=== PATIENT | female | born 1940 | race Caucasian/White ===

== ENCOUNTER 2016-10-28 17:41 | Inpatient (IN) | payer MEDICARE, MEDICAID ==
[~2016-10-28] VITALS: Ht 144.8 cm; Wt 73.0 kg
[~2016-10-28 17:41] MED LIST: CYAN1TAB19 PO; METO25TA9 PO; MULT1TAB90 PO
[2016-10-28 18:51] LABS: BASO # 0.1 x10^3/uL (0.0-0.2); BASO % 1 % (0-3); EOS % 1 % (0-3); HEMOGLOBIN 13.1 g/dL (12.0-15.5); LYMPH # 1.4 x10^3/uL (1.0-4.8); LYMPH % 16 % (24-48); MEAN CORPUSCULAR HEMOGLOBIN 28 pg (25-35); MEAN CORPUSCULAR HGB CONC 33 g/dL (31-37); MEAN CORPUSCULAR VOLUME 86 fL (79-100); MONO % 8 % (0-9); NEUT % 74 % (31-73); PLATELET COUNT 187 x10^3/uL (140-400); RED BLOOD COUNT 4.63 x10^6/uL (3.50-5.40); RED CELL DISTRIBUTION WIDTH 13.8 % (11.5-14.5); WHITE BLOOD COUNT 8.5 x10^3/uL (4.0-11.0)
[2016-10-28 18:53] LABS: BILIRUBIN,URINE NEGATIVE (NEG); GLUCOSE,URINE NEGATIVE (NEG); NITRITE,URINE NEGATIVE (NEG); PROTEIN,URINE 100 mg/dL (NEG-TRACE); UROBILINOGEN,URINE 0.2 mg/dL (0.2 mg/dL)
[2016-10-28] MEDS ORDERED: IV NORMAL SALINE 500ML BAG 500 ML IV ONE ×2 (19:00→20:45)
[2016-10-28] MEDS ORDERED: FENTANYL PF 100 MCG/2 ML VIAL. IV ONE (19:00)
[2016-10-28 19:01] LABS: CALCIUM 9.1 mg/dL (8.5-10.1); CREATININE 7.6 mg/dL (0.6-1.0); GFR 5.2; POTASSIUM 4.4 mmol/L (3.5-5.1)
[2016-10-28 19:06] LABS: BACTERIA,URINE MODERATE /HPF (0-FEW); SQUAMOUS EPITHELIAL CELL,UR FEW /LPF; WBC,URINE TNTC /HPF (0-4)
[2016-10-28] MEDS ORDERED: CEFTRIAXONE 1GM IVPB FOR OMNI 50 ML IV ONE (20:30)
--- NOTE | 2016-10-28 20:30 | RAD ---
PROCEDURE CT scan of the abdomen and pelvis without contrast 10/28/2016 HISTORY Severe bilateral flank pain. TECHNIQUE Unenhanced contiguous, 2 millimeter axial sections were obtained through the abdomen and pelvis. One or more of the following individualized dose reduction techniques were utilized for this study: 1. Automated exposure control. 2. Adjustment of the mA and/or kV according to patient size. 3. Use of iterative reconstruction technique. FINDINGS Comparison study is dated 05/22/2013. Images through the lung bases demonstrate mild cardiomegaly. Dependent subsegmental atelectasis is seen involving both lungs. Areas of scarring and/or atelectasis are seen involving right middle lobe. Low attenuation lesions are seen involving left lobe of the liver consistent with hepatic cysts. These measure 6 millimeters to 1.4 centimeters in size. Calcified granulomas are seen scattered throughout the liver and spleen. The spleen is mildly enlarged measuring 15.7 centimeters in greatest diameter. The pancreas and adrenal glands are within normal limits. Atrophy of the left kidney is again seen. Several nonobstructing calculi are seen scattered throughout both kidneys, right greater than left. These measure 3 millimeters to 9 millimeters in size. Low attenuation lesions are seen involving both kidneys consistent most likely with cysts. These measure 1 centimeters to 3.3 centimeters in size. A 1.1 centimeter calculus is seen in the right UPJ. This appears to be causing mild obstruction of the right collecting system. There is no evidence of obstruction of the left collecting system. The abdominal aorta tapers normally. Surgical clips are seen within the gallbladder fossa consistent with a cholecystectomy. No free fluid or free air is seen within the abdomen. There is no evidence of bowel obstruction. Images through the pelvis demonstrate the urinary bladder distended with urine. Calcifications are seen within the pelvis consistent with phleboliths. No adnexal mass is seen. Mild S-shaped curvature of the thoracolumbar spine is seen. Degenerative changes are seen involving lower thoracic and throughout the lumbar spine and both hips. IMPRESSION 1.1 centimeter right UPJ calculus is seen which is causing mild obstruction of the right collecting system. Electronically signed by: Jesus Hunter MD (Oct 28, 2016 20:28:55)
--- NOTE | 2016-10-28 21:08 | PHYS DOC ---
Past Medical History Past Medical History: Hypertension, Kidney Infection, Kidney Stone, UTI Past Surgical History: Appendectomy, Cholecystectomy, Tonsillectomy, Other Additional Past Surgical Histo: kidney stents, intestinal bypass Alcohol Use: None Drug Use: None Adult General Chief Complaint Chief Complaint: FLANK PAIN HPI HPI This 76-year-old female who's had ongoing flank tenderness that she localizes primarily to the right flank region for the last week. Patient was seen by Dr. Maravilla in the occiput on antibiotic for likely pyelonephritis but she states her symptoms have continued. She had laboratory workup by Dr. Maravilla that showed acute renal failure and she was sent here for evaluation. Upon my evaluation patient is still complaining of significant right flank tenderness. She denies any fever or chills. She denies any dysuria or hematuria that she does state that she has history of renal renal stones that have required multiple stents in the past. As his most recently 2 years ago. Review of Systems Review of Systems Constitutional: Denies fever or chills [] Eyes: Denies change in visual acuity, redness, or eye pain [] HENT: Denies nasal congestion or sore throat [] Respiratory: Denies cough or shortness of breath [] Cardiovascular: No additional information not addressed in HPI [] GI: Denies abdominal pain, nausea, vomiting, bloody stools or diarrhea [] : Denies dysuria or hematuria [] Musculoskeletal: Denies back pain or joint pain [] Integument: Denies rash or skin lesions [] Neurologic: Denies headache, focal weakness or sensory changes [] Endocrine: Denies polyuria or polydipsia [] Current Medications Current Medications Current Medications Medications (Trade) Dose Ordered Sig/Kvng Start Time Stop Time Status Last Admin Dose Admin Fentanyl Citrate 50 mcg 50 mcg 1X ONCE 10/28/16 19:00 10/28/16 19:05 DC 10/28/16 19:18 50 MCG Sodium Chloride (Iv Sodium Chloride 0.9% 500ml Bag) 500 ml @ 500 mls/hr 1X ONCE 10/28/16 19:00 10/28/16 19:59 DC 10/28/16 19:00 500 MLS/HR Allergies Allergies Allergies Coded Allergies Type Severity Reaction Last Updated Verified hydrocodone Allergy Intermediate HALLUCINATIONS 10/28/16 Yes Physical Exam Physical Exam Constitutional: Well developed, well nourished, no acute distress, non-toxic appearance. [] HENT: Normocephalic, atraumatic, bilateral external ears normal, oropharynx moist, no oral exudates, nose normal. [] Eyes: PERRLA, EOMI, conjunctiva normal, no discharge. [] Neck: Normal range of motion, no tenderness, supple, no stridor. [] Cardiovascular:Heart rate regular rhythm, no murmur [] Lungs & Thorax: Bilateral breath sounds clear to auscultation [] Abdomen: Bowel sounds normal, soft, no tenderness, no masses, no pulsatile masses. [] Skin: Warm, dry, no erythema, no rash. [] Back: No tenderness, right CVA tenderness. [] Extremities: No tenderness, no cyanosis, no clubbing, ROM intact, no edema. [] Neurologic: Alert and oriented X 3, normal motor function, normal sensory function, no focal deficits noted. [] Psychologic: Affect normal, judgement normal, mood normal. [] Current Patient Data Vital Signs Vital Signs Date Time Temp Pulse Resp B/P Pulse Ox O2 Delivery O2 Flow Rate FiO2 10/28/16 20:09 80 18 144/64 97 Room Air 10/28/16 17:59 97.9 97.9 Lab Values Laboratory Tests Test 10/28/16 18:09 White Blood Count 8.5x10^3/uL (4.0-11.0) Red Blood Count 4.63x10^6/uL (3.50-5.40) Hemoglobin 13.1g/dL (12.0-15.5) Hematocrit 40.0% (36.0-47.0) Mean Corpuscular Volume 86fL (79-100) Mean Corpuscular Hemoglobin 28pg (25-35) Mean Corpuscular Hemoglobin Concent 33g/dL (31-37) Red Cell Distribution Width 13.8% (11.5-14.5) Platelet Count 187x10^3/uL (140-400) Neutrophils (%) (Auto) 74% (31-73) H Lymphocytes (%) (Auto) 16% (24-48) L Monocytes (%) (Auto) 8% (0-9) Eosinophils (%) (Auto) 1% (0-3) Basophils (%) (Auto) 1% (0-3) Neutrophils # (Auto) 6.3x10^3uL (1.8-7.7) Lymphocytes # (Auto) 1.4x10^3/uL (1.0-4.8) Monocytes # (Auto) 0.7x10^3/uL (0.0-1.1) Eosinophils # (Auto) 0.1x10^3/uL (0.0-0.7) Basophils # (Auto) 0.1x10^3/uL (0.0-0.2) Urine Collection Type Unknown Urine Color Yellow Urine Clarity Clear Urine pH 6.0 Urine Specific [place] 1.010 Urine Protein 100mg/dL (NEG-TRACE) Urine Glucose (UA) Negativemg/dL (NEG) Urine Ketones (Stick) Negativemg/dL (NEG) Urine Blood Small (NEG) Urine Nitrite Negative (NEG) Urine Bilirubin Negative (NEG) Urine Urobilinogen Dipstick 0.2mg/dL (0.2 mg/dL) Urine Leukocyte Esterase Large (NEG) Urine RBC 6-10/HPF (0-2) Urine WBC Tntc/HPF (0-4) Urine Squamous Epithelial Cells Few/LPF Urine Transitional Epithelial Cells Few/LPF Urine Bacteria Moderate/HPF (0-FEW) Sodium Level 140mmol/L (136-145) Potassium Level 4.4mmol/L (3.5-5.1) Chloride Level 109mmol/L (98-107) H Carbon Dioxide Level 13mmol/L (21-32) L Anion Gap 18 (6-14) H Blood Urea Nitrogen 89mg/dL (7-20) H Creatinine 7.6mg/dL (0.6-1.0) H Estimated GFR (Cockcroft-Gault) 5.2 Glucose Level 119mg/dL (70-99) H Calcium Level 9.1mg/dL (8.5-10.1) Laboratory Tests 10/28/16 18:09 Laboratory Tests 10/28/16 18:09 EKG EKG [] Radiology/Procedures Radiology/Procedures FINDINGS Comparison study is dated 05/22/2013. Images through the lung bases demonstrate mild cardiomegaly. Dependent subsegmental atelectasis is seen involving both lungs. Areas of scarring and/or atelectasis are seen involving right middle lobe. Low attenuation lesions are seen involving left lobe of the liver consistent with hepatic cysts. These measure 6 millimeters to 1.4 centimeters in size. Calcified granulomas are seen scattered throughout the liver and spleen. The spleen is mildly enlarged measuring 15.7 centimeters in greatest diameter. The pancreas and adrenal glands are within normal limits. Atrophy of the left kidney is again seen. Several nonobstructing calculi are seen scattered throughout both kidneys, right greater than left. These measure 3 millimeters to 9 millimeters in size. Low attenuation lesions are seen involving both kidneys consistent most likely with cysts. These measure 1 centimeters to 3.3 centimeters in size. A 1.1 centimeter calculus is seen in the right UPJ. This appears to be causing mild obstruction of the right collecting system. There is no evidence of obstruction of the left collecting system. The abdominal aorta tapers normally. Surgical clips are seen within the gallbladder fossa consistent with a cholecystectomy. No free fluid or free air is seen within the abdomen. There is no evidence of bowel obstruction. Images through the pelvis demonstrate the urinary bladder distended with urine. Calcifications are seen within the pelvis consistent with phleboliths. No adnexal mass is seen. Mild S-shaped curvature of the thoracolumbar spine is seen. Degenerative changes are seen involving lower thoracic and throughout the lumbar spine and both hips. IMPRESSION 1.1 centimeter right UPJ calculus is seen which is causing mild obstruction of the right collecting system. Course & Med Decision Making Course & Med Decision Making Pertinent Labs and Imaging studies reviewed. (See chart for details) 76-year-old female who's having significant flank tenderness and has a CT of her abdomen and pelvis that demonstrates a 1.1 cm calculus at the UPJ. Her lab work also indicates acute renal failure. I discussed the case with the urologist , Dr. Oconnor, who said to keep the patient on a clear liquid diet and to be nothing by mouth in the morning as he will likely put a ureteral stent. I discussed the case with the hospitalist, Dr. Maravilla who agreed with the plan to admit with urology consult as well as renal consult. I gave a dose of IV Rocephin and fluids as well as PRN pain medication. She was admitted without incident. Dragon Disclaimer Dragon Disclaimer This electronic medical record was generated, in whole or in part, using a voice recognition dictation system. Departure Departure Impression: Primary Impression: UTI (urinary tract infection) Additional Impressions: Stone, kidney Flank pain Disposition: 09 ADMITTED INPATIENT Admitting Physician: Other Condition: STABLE Referrals: IFEANYI MARAVILLA MD (PCP) Problem Qualifiers EUGENIO DONOHUE DO Oct 28, 2016 21:08
--- NOTE | 2016-10-28 21:27 | ACF ---
Admission Forms Criteria URINARY COMPLICATIONS Clinical Indications for Inpatient Care (Place 'X' for any and all applicable criteria): Ongoing inpatient care may be indicated for urinary complications with ANY ONE of the following: [X]I. Urinary tract infection requiring inpatient care as indicated by ANY ONE of the following(8)(19)(20): [ ]a) Severe symptoms (eg, high fever, severe pain) [ ]b) Vomiting or dehydration requiring ongoing inpatient care [X]c) IV antibiotic needs that cannot be managed at lower level of care [ ]d) Hemodynamic instability [ ]e) Obstruction of collecting system by stone or tumor [ ]II. Urinary retention requiring drainage or surgery (3)(4)(5)(17)(18) [ ]III. Renal failure (Use Renal Failure Criteria for further information.) [ ]IV. Oliguria(30) [ ]V. Post obstructive diuresis requiring close monitoring of urine output and intravenous compensation for excessive fluid losses(33) Extended stay beyond goal length of stay for primary condition may be needed until ALL of the following are present(3)(4)(5)(8): [ ]a) Renal function (creatinine) at baseline, or daily decreases in creatinine consistent with renal function return [ ]b) Voiding adequately or with urinary catheter or percutaneous suprapubic tube and management regimen in place that is performable at lower level of care. [ ]c) Urine output adequate [ ]d) Fever absent or resolving [ ]e) Infection absent or treatable at next level of care The original [employer] content created by [employer] has been revised. The portions of the content which have been revised are identified through the use of italic text or in bold, and [facility] has neither reviewed nor approved the modified material. All other unmodified content is copyright [employer] Please see references footnoted in the original [facility] edition 2016 Admission Criteria Met?: Yes SUMMER PERKINS Oct 28, 2016 21:27
[2016-10-28 22:00] VITALS: BP 184/75
[2016-10-28] MEDS: IV NORMAL SALINE 1000ML BAG 1,000 ML IV SCH (22:00)
[2016-10-28 23:50] VITALS: BP 151/63
[2016-10-29 03:20] VITALS: BP 141/65
[2016-10-29] MEDS: ONDANSETRON PF 4 MG/2 ML VIAL. IV PRN ×2 (04:32→13:21)
[2016-10-29] MEDS: FENTANYL PF 100 MCG/2 ML VIAL. IV PRN ×2 (04:33→13:07)
[2016-10-29 07:00] VITALS: BP 137/45
[2016-10-29 07:04] LABS: BASO % 1 % (0-3); EOS % 1 % (0-3); HEMATOCRIT 33.6 % (36.0-47.0); LYMPH % 17 % (24-48); MEAN CORPUSCULAR HEMOGLOBIN 28 pg (25-35); MEAN CORPUSCULAR HGB CONC 33 g/dL (31-37); MEAN CORPUSCULAR VOLUME 87 fL (79-100); MONO % 11 % (0-9); NEUT % 70 % (31-73); PLATELET COUNT 135 x10^3/uL (140-400); RED BLOOD COUNT 3.86 x10^6/uL (3.50-5.40); RED CELL DISTRIBUTION WIDTH 14.4 % (11.5-14.5); WHITE BLOOD COUNT 5.8 x10^3/uL (4.0-11.0)
[2016-10-29] MEDS: IV NORMAL SALINE 1000ML BAG 1,000 ML IV SCH ×2 (07:15→17:15)
[2016-10-29 07:18] LABS: CALCIUM 8.3 mg/dL (8.5-10.1); CREATININE 6.9 mg/dL (0.6-1.0); GFR 5.8; POTASSIUM 4.6 mmol/L (3.5-5.1)
[2016-10-29] MEDS ORDERED: DEXTROSE 5% IV SCH (07:45)
[2016-10-29] MEDS ORDERED: SODIUM BICARBONATE IV SCH (07:45)
[2016-10-29] MEDS: SODIUM BICARBONATE VIAL 100 MEQ in IV DEXTROSE 5% 1,000 ML IV SCH ×2 (08:29→21:28)
--- NOTE | 2016-10-29 08:41 | PDOC ---
Provider Note Provider Note UROLOGY: c/c right ureteral calculus, flank pain, ARF chart reviewed, patient examined Plan: Will try to get patient on schedule for Cysto right stent placement. Ellis, KUSH HECK DO Oct 29, 2016 08:41
--- NOTE | 2016-10-29 09:06 | PDOC1 ---
History and Physical Date of Admission Date of Admission DATE: 10/28/16 Identification/Chief Complaint Chief Complaint Told to come to ER Source Source: Patient History of Present Illness History of Present Illness Pt recently established care with myself complaining of dysuria and needing to be treated for UTI. Initial baseline labs showed severely decreased kidney function and pt was called and told to go to the hospital. She initially was not going to come, but her son made her. She has significant history of kidney stones requiring stents being placed in the past, and at one time having surgery to remove stones. She has not been feeling well over this past week with fevers, chills and nausea. Past Medical History Cardiovascular: No pertinent hx Pulmonary: No pertinent hx GI: No pertinent hx Heme/Onc: No pertinent hx Hepatobiliary: No pertinent hx Psych: No pertinent hx Rheumatologic: No pertinent hx Infectious disease: No pertinent hx ENT: No pertinent hx Renal/: UTI, Other (Kidney Stones) Endocrine: No pertinent hx Dermatology: No pertinent hx Past Surgical History Past Surgical History: Appendectomy, Cholecystectomy, Tonsillectomy, Other ( ureter stents, Kidney surgery, Gastric Bypass) Family History Family History: Cancer (Mom- Breast Cancer), Hypertension, Other (Kidney Stones ) Social History Smoke: No ALCOHOL: none Drugs: None Current Problem List Problem List Problems Medical Problems: (1) Flank pain Status: Acute (2) Stone, kidney Status: Acute (3) UTI (urinary tract infection) Status: Acute Problems: Current Medications Current Medications Current Medications Fentanyl Citrate 50 mcg 50 mcg 1X ONCE IV Last administered on 10/28/16 19:18 ; Start 10/28/16 at 19:00; Stop 10/28/16 at 19:05; Status DC Sodium Chloride 500 ml @ 500 mls/hr 1X ONCE IV Last administered on 10/28/16 19:00; Start 10/28/16 at 19:00; Stop 10/28/16 at 19:59; Status DC Ceftriaxone Sodium 50 ml @ 100 mls/hr 1X ONCE IV Last administered on 21:21; Start 10/28/16 at 20:30; Stop 10/28/16 at 20:59; Status DC Sodium Chloride (Iv Sodium Chloride 0.9% 500ml Bag) 500 ml @ 500 mls/hr 1X ONCE IV Last administered on 10/28/16 21:22; Start 10/28/16 at 20:45; Stop at 21:44; Status DC Ondansetron HCl 4 mg 4 mg PRN Q8HRS PRN IV NAUSEA/VOMITING Last administered on 10/29/16 04:32; Start 10/28/16 at 21:00; Stop 10/29/16 at 20:59 Sodium Chloride (Iv Sodium Chloride 0.9% 1000ml Bag) 1,000 ml @ 100 mls/hr Q10H IV Last administered on 10/28/16 22:00; Start 10/28/16 at 21:15; Stop at 21:14 Fentanyl Citrate 50 mcg 50 mcg PRN Q2HR PRN IV SEVERE PAIN Last administered on 10/29/16 04:33; Start 10/28/16 at 21:45 Sodium Bicarbonate 2 meq/ Dextrose 1,002 ml @ 100 mls/hr Q10H2M IV ; Start 10/29 at 07:45; Stop 10/29/16 at 07:45; Status DC Sodium Bicarbonate/ Dextrose 1,100 ml @ 100 mls/hr Q11H IV Last administered on 10/29/16 08:29; Start 10/29/16 at 09:00 Active Scripts Active Reported No Known Medications Prior To Admisstion (Info) Each 1 Each Allergies Allergies: Coded Allergies: hydrocodone (Verified Allergy, Intermediate, HALLUCINATIONS, 10/28/16) ROS General: YES: Appetite, Chills, Fatigue PSYCHOLOGICAL ROS: No: Anxiety, Depression Eyes: No Decreased vision, No Eye Pain HEENT: No: Nasal congestion, Sore Throat ALLERGY AND IMMUNOLOGY: No: Hives, Post Nasal Drip Hematological and Lymphatic: No: Bleeding Problems, Blood Clots Respiratory: No: Cough, Shortness of breath Cardiovascular: No Chest Pain, No Edema, No Palpitations Gastrointestinal: Yes Abdominal Pain, Yes Nausea, No Constipation, No Diarrhea, No Vomiting Genitourinary: No Dysuria, No Urgency Musculoskeletal: No Joint Pain, No Muscle Pain Neurological: No Impaired Coord/balance, No Numbness/Tingling Skin: No Rash, No Skin Lesion Changes Physical Exam General: Alert, Oriented X3, Cooperative HEENT: Atraumatic, PERRLA Lungs: Clear to auscultation, Normal air movement Heart: RRR, no rubs, no gallops, no murmurs Abdomen: Normal bowel sounds, Soft, Other (TTP lower abdomen) Extremities: No clubbing, No cyanosis Skin: No rashes, No breakdown, No significant lesion Neuro: Normal tone, Sensation intact, Cranial nerves 3-12 NL Psych/Mental Status: Mental status NL, Mood NL Vitals Vitals Vital Signs Date Time Temp Pulse Resp B/P Pulse Ox O2 Delivery O2 Flow Rate FiO2 10/29/16 07:00 98.2 71 18 137/45 99 Room Air 98.2 Labs Labs Laboratory Tests Test 10/28/16 18:09 10/28/16 20:55 10/29/16 06:30 10/29/16 06:50 White Blood Count 8.5x10^3/uL (4.0-11.0) 5.8x10^3/uL (4.0-11.0) Red Blood Count 4.63x10^6/uL (3.50-5.40) 3.86x10^6/uL (3.50-5.40) Hemoglobin 13.1g/dL (12.0-15.5) 11.0g/dL (12.0-15.5) Hematocrit 40.0% (36.0-47.0) 33.6% (36.0-47.0) Mean Corpuscular Volume 86fL (79-100) 87fL (79-100) Mean Corpuscular Hemoglobin 28pg (25-35) 28pg (25-35) Mean Corpuscular Hemoglobin Concent 33g/dL (31-37) 33g/dL (31-37) Red Cell Distribution Width 13.8% (11.5-14.5) 14.4% (11.5-14.5) Platelet Count 187x10^3/uL (140-400) 135x10^3/uL (140-400) Neutrophils (%) (Auto) 74% (31-73) 70% (31-73) Lymphocytes (%) (Auto) 16% (24-48) 17% (24-48) Monocytes (%) (Auto) 8% (0-9) 11% (0-9) Eosinophils (%) (Auto) 1% (0-3) 1% (0-3) Basophils (%) (Auto) 1% (0-3) 1% (0-3) Neutrophils # (Auto) 6.3x10^3uL (1.8-7.7) 4.1x10^3uL (1.8-7.7) Lymphocytes # (Auto) 1.4x10^3/uL (1.0-4.8) 1.0x10^3/uL (1.0-4.8) Monocytes # (Auto) 0.7x10^3/uL (0.0-1.1) 0.6x10^3/uL (0.0-1.1) Eosinophils # (Auto) 0.1x10^3/uL (0.0-0.7) 0.1x10^3/uL (0.0-0.7) Basophils # (Auto) 0.1x10^3/uL (0.0-0.2) 0.0x10^3/uL (0.0-0.2) Urine Collection Type Unknown Urine Color Yellow Urine Clarity Clear Urine pH 6.0 Urine Specific [place] 1.010 Urine Protein 100mg/dL (NEG-TRACE) Urine Glucose (UA) Negativemg/dL (NEG) Urine Ketones (Stick) Negativemg/dL (NEG) Urine Blood Small (NEG) Urine Nitrite Negative (NEG) Urine Bilirubin Negative (NEG) Urine Urobilinogen Dipstick 0.2mg/dL (0.2 mg/dL) Urine Leukocyte Esterase Large (NEG) Urine RBC 6-10/HPF (0-2) Urine WBC Tntc/HPF (0-4) Urine Squamous Epithelial Cells Few/LPF Urine Transitional Epithelial Cells Few/LPF Urine Bacteria Moderate/HPF (0-FEW) Sodium Level 140mmol/L (136-145) 144mmol/L (136-145) Potassium Level 4.4mmol/L (3.5-5.1) 4.6mmol/L (3.5-5.1) Chloride Level 109mmol/L (98-107) 117mmol/L (98-107) Carbon Dioxide Level 13mmol/L (21-32) 11mmol/L (21-32) Anion Gap 18 (6-14) 16 (6-14) Blood Urea Nitrogen 89mg/dL (7-20) 84mg/dL (7-20) Creatinine 7.6mg/dL (0.6-1.0) 6.9mg/dL (0.6-1.0) Estimated GFR (Cockcroft-Gault) 5.2 5.8 Glucose Level 119mg/dL (70-99) 113mg/dL (70-99) Calcium Level 9.1mg/dL (8.5-10.1) 8.3mg/dL (8.5-10.1) Lactic Acid Level 0.5mmol/L (0.4-2.0) Laboratory Tests Test 10/28/16 18:09 10/28/16 20:55 10/29/16 06:30 10/29/16 06:50 White Blood Count 8.5x10^3/uL (4.0-11.0) 5.8x10^3/uL (4.0-11.0) Red Blood Count 4.63x10^6/uL (3.50-5.40) 3.86x10^6/uL (3.50-5.40) Hemoglobin 13.1g/dL (12.0-15.5) 11.0g/dL (12.0-15.5) Hematocrit 40.0% (36.0-47.0) 33.6% (36.0-47.0) Mean Corpuscular Volume 86fL (79-100) 87fL (79-100) Mean Corpuscular Hemoglobin 28pg (25-35) 28pg (25-35) Mean Corpuscular Hemoglobin Concent 33g/dL (31-37) 33g/dL (31-37) Red Cell Distribution Width 13.8% (11.5-14.5) 14.4% (11.5-14.5) Platelet Count 187x10^3/uL (140-400) 135x10^3/uL (140-400) Neutrophils (%) (Auto) 74% (31-73) 70% (31-73) Lymphocytes (%) (Auto) 16% (24-48) 17% (24-48) Monocytes (%) (Auto) 8% (0-9) 11% (0-9) Eosinophils (%) (Auto) 1% (0-3) 1% (0-3) Basophils (%) (Auto) 1% (0-3) 1% (0-3) Neutrophils # (Auto) 6.3x10^3uL (1.8-7.7) 4.1x10^3uL (1.8-7.7) Lymphocytes # (Auto) 1.4x10^3/uL (1.0-4.8) 1.0x10^3/uL (1.0-4.8) Monocytes # (Auto) 0.7x10^3/uL (0.0-1.1) 0.6x10^3/uL (0.0-1.1) Eosinophils # (Auto) 0.1x10^3/uL (0.0-0.7) 0.1x10^3/uL (0.0-0.7) Basophils # (Auto) 0.1x10^3/uL (0.0-0.2) 0.0x10^3/uL (0.0-0.2) Urine Collection Type Unknown Urine Color Yellow Urine Clarity Clear Urine pH 6.0 Urine Specific [place] 1.010 Urine Protein 100mg/dL (NEG-TRACE) Urine Glucose (UA) Negativemg/dL (NEG) Urine Ketones (Stick) Negativemg/dL (NEG) Urine Blood Small (NEG) Urine Nitrite Negative (NEG) Urine Bilirubin Negative (NEG) Urine Urobilinogen Dipstick 0.2mg/dL (0.2 mg/dL) Urine Leukocyte Esterase Large (NEG) Urine RBC 6-10/HPF (0-2) Urine WBC Tntc/HPF (0-4) Urine Squamous Epithelial Cells Few/LPF Urine Transitional Epithelial Cells Few/LPF Urine Bacteria Moderate/HPF (0-FEW) Sodium Level 140mmol/L (136-145) 144mmol/L (136-145) Potassium Level 4.4mmol/L (3.5-5.1) 4.6mmol/L (3.5-5.1) Chloride Level 109mmol/L (98-107) 117mmol/L (98-107) Carbon Dioxide Level 13mmol/L (21-32) 11mmol/L (21-32) Anion Gap 18 (6-14) 16 (6-14) Blood Urea Nitrogen 89mg/dL (7-20) 84mg/dL (7-20) Creatinine 7.6mg/dL (0.6-1.0) 6.9mg/dL (0.6-1.0) Estimated GFR (Cockcroft-Gault) 5.2 5.8 Glucose Level 119mg/dL (70-99) 113mg/dL (70-99) Calcium Level 9.1mg/dL (8.5-10.1) 8.3mg/dL (8.5-10.1) Lactic Acid Level 0.5mmol/L (0.4-2.0) VTE Prophylaxis Ordered VTE Prophylaxis Devices: Yes VTE Pharmacological Prophylaxi: No Assessment/Plan Assessment/Plan Pt is a 76yoCF admitted for acute renal failure related to kidney stone 1)Acute renal failure- Renal consulted and pt on NaHCO3 gtt. Likely 2/2 obstruction 2)Kidney stone- urology consulted 3)UTI- treating 4)Anemia- partly dilutional. No active bleeding 5)Thrombocytopenia- likely partly dilutional. CTM 6)Metabolic acidosis- 2/2 renal failure IFEANYI MARAVILLA MD Oct 29, 2016 09:06
--- NOTE | 2016-10-29 11:26 | PDOC2 ---
CONSULT Date of Consult Date of Consult DATE: 10/29/16 TIME: 11:19 Reason for Consult Reason for Consult: DHAVAL Referring Physician Referring Physician: Dr Nguyen Source Source: Chart review, Patient History of Present Illness Reason for Visit: as dictated Current Problem List Problem List Problems Medical Problems: (1) Flank pain Status: Acute (2) Stone, kidney Status: Acute (3) UTI (urinary tract infection) Status: Acute Current Medications Current Medications Current Medications Fentanyl Citrate 50 mcg 50 mcg 1X ONCE IV Last administered on 10/28/16 19:18 ; Start 10/28/16 at 19:00; Stop 10/28/16 at 19:05; Status DC Sodium Chloride 500 ml @ 500 mls/hr 1X ONCE IV Last administered on 10/28/16 19:00; Start 10/28/16 at 19:00; Stop 10/28/16 at 19:59; Status DC Ceftriaxone Sodium 50 ml @ 100 mls/hr 1X ONCE IV Last administered on 21:21; Start 10/28/16 at 20:30; Stop 10/28/16 at 20:59; Status DC Sodium Chloride (Iv Sodium Chloride 0.9% 500ml Bag) 500 ml @ 500 mls/hr 1X ONCE IV Last administered on 10/28/16 21:22; Start 10/28/16 at 20:45; Stop at 21:44; Status DC Ondansetron HCl 4 mg 4 mg PRN Q8HRS PRN IV NAUSEA/VOMITING Last administered on 10/29/16 04:32; Start 10/28/16 at 21:00; Stop 10/29/16 at 20:59 Sodium Chloride (Iv Sodium Chloride 0.9% 1000ml Bag) 1,000 ml @ 100 mls/hr Q10H IV Last administered on 10/28/16 22:00; Start 10/28/16 at 21:15; Stop at 21:14 Fentanyl Citrate 50 mcg 50 mcg PRN Q2HR PRN IV SEVERE PAIN Last administered on 10/29/16 04:33; Start 10/28/16 at 21:45 Sodium Bicarbonate 2 meq/ Dextrose 1,002 ml @ 100 mls/hr Q10H2M IV ; Start 10/29 at 07:45; Stop 10/29/16 at 07:45; Status DC Sodium Bicarbonate 100 meq/Dextrose 1,100 ml @ 100 mls/hr Q11H IV Last administered on 10/29/16 08:29; Start 10/29/16 at 09:00 Levofloxacin/ Dextrose (LEVAQUIN 250mg PREMIX) 50 ml @ 50 mls/hr 1X ONCE IV Last administered on 10/29/16 10:00; Start 10/29/16 at 10:00; Stop 10/29/16 at 10: 59; Status DC Active Scripts Active Reported No Known Medications Prior To Admisstion (Info) Each 1 Each Allergies Allergies: Coded Allergies: hydrocodone (Verified Allergy, Intermediate, HALLUCINATIONS, 10/28/16) ROS Review of System GEN: subj Fevers + Chills + Weakness Fatigue EYES: no new Visual Complaints ENT: no EN Drainage no Hearing deficiets CVS: no Orthopnea no CP RESP: no SOB no MALDONADO GI: min Nausea no Vomiting Ch diarrhea : no Dysuria no Urgency HEME: no easy bruising no Palp Ly Nodes NEURO no Focal Weakness no Sz PSYCH: no Suicidal Ideation no Depression SKIN: no Rashes ENDO: no Polyuria or Polydipsia no Hot/Cold Intolerance MU SK: no Arthraigia no Myalgia Physical Exam Physical Exam General Appearance: Awake Alert Oriented x 3 In min Distress Eyes: VIsion Unchanged Conjunctiva Normal EN: No EN Drainage Mucous Memb. dry Neck: no JVD no JVP Supple no Thyromegaly CVS: S1 S2 no Murmur No Gallop No Rub no Edema Resp: no Rales no Rhonchi no Acc. Muscle use GI: BS hypoactive NO Bruit + RLQ Tender Non Distended : + Rt CVA tenderness; min Suprapubic Tenderness SKIN: no Rashes Breast Exam deferred Mu.Sk: Adequate ROM no Muscle Atrophy Heme: Unable to palpate Obvious LAD no palp Splenomegaly NEURO: Good Strength and Tone Cranial Nerves II - XII grossly intact Psych: ? Depressed no Active hallucination Vital Signs Vital Signs Date Time Temp Pulse Resp B/P Pulse Ox O2 Delivery O2 Flow Rate FiO2 10/29/16 08:30 Room Air 10/29/16 07:00 98.2 71 18 137/45 99 98.2 Assessment & Plan Sev Met Acidosis WAG + NAG - suspect due to Renal failure, ch diarrhea and IV NS. 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 Reval after UROlogical intervention? Current FLuid and E-lyte status does not necessitate emergent need for Dialysis. Will re-evaluate for Dialysis in am CKD (basline NA in our system) given Atrophy of the left kidney as seen on CT and presumably Non-fucntional Kidney stones suspect due to intestinal Bypass yareli if felt to have oxalate stones. may need stone analysis when passes/ removed; check PTH Anemia: check iron, Epogen not ordered for hgb > 10; Transfuse as needed for hgb < 7 HTN: Current BP meds reviewed. See orders for changes. Discussed Plan of Care and prognosis etc. at length with family. Labs Labs Laboratory Tests Test 10/28/16 18:09 10/28/16 20:55 10/29/16 06:30 10/29/16 06:50 White Blood Count 8.5x10^3/uL (4.0-11.0) 5.8x10^3/uL (4.0-11.0) Red Blood Count 4.63x10^6/uL (3.50-5.40) 3.86x10^6/uL (3.50-5.40) Hemoglobin 13.1g/dL (12.0-15.5) 11.0g/dL (12.0-15.5) Hematocrit 40.0% (36.0-47.0) 33.6% (36.0-47.0) Mean Corpuscular Volume 86fL (79-100) 87fL (79-100) Mean Corpuscular Hemoglobin 28pg (25-35) 28pg (25-35) Mean Corpuscular Hemoglobin Concent 33g/dL (31-37) 33g/dL (31-37) Red Cell Distribution Width 13.8% (11.5-14.5) 14.4% (11.5-14.5) Platelet Count 187x10^3/uL (140-400) 135x10^3/uL (140-400) Neutrophils (%) (Auto) 74% (31-73) 70% (31-73) Lymphocytes (%) (Auto) 16% (24-48) 17% (24-48) Monocytes (%) (Auto) 8% (0-9) 11% (0-9) Eosinophils (%) (Auto) 1% (0-3) 1% (0-3) Basophils (%) (Auto) 1% (0-3) 1% (0-3) Neutrophils # (Auto) 6.3x10^3uL (1.8-7.7) 4.1x10^3uL (1.8-7.7) Lymphocytes # (Auto) 1.4x10^3/uL (1.0-4.8) 1.0x10^3/uL (1.0-4.8) Monocytes # (Auto) 0.7x10^3/uL (0.0-1.1) 0.6x10^3/uL (0.0-1.1) Eosinophils # (Auto) 0.1x10^3/uL (0.0-0.7) 0.1x10^3/uL (0.0-0.7) Basophils # (Auto) 0.1x10^3/uL (0.0-0.2) 0.0x10^3/uL (0.0-0.2) Urine Collection Type Unknown Urine Color Yellow Urine Clarity Clear Urine pH 6.0 Urine Specific [place] 1.010 Urine Protein 100mg/dL (NEG-TRACE) Urine Glucose (UA) Negativemg/dL (NEG) Urine Ketones (Stick) Negativemg/dL (NEG) Urine Blood Small (NEG) Urine Nitrite Negative (NEG) Urine Bilirubin Negative (NEG) Urine Urobilinogen Dipstick 0.2mg/dL (0.2 mg/dL) Urine Leukocyte Esterase Large (NEG) Urine RBC 6-10/HPF (0-2) Urine WBC Tntc/HPF (0-4) Urine Squamous Epithelial Cells Few/LPF Urine Transitional Epithelial Cells Few/LPF Urine Bacteria Moderate/HPF (0-FEW) Sodium Level 140mmol/L (136-145) 144mmol/L (136-145) Potassium Level 4.4mmol/L (3.5-5.1) 4.6mmol/L (3.5-5.1) Chloride Level 109mmol/L (98-107) 117mmol/L (98-107) Carbon Dioxide Level 13mmol/L (21-32) 11mmol/L (21-32) Anion Gap 18 (6-14) 16 (6-14) Blood Urea Nitrogen 89mg/dL (7-20) 84mg/dL (7-20) Creatinine 7.6mg/dL (0.6-1.0) 6.9mg/dL (0.6-1.0) Estimated GFR (Cockcroft-Gault) 5.2 5.8 Glucose Level 119mg/dL (70-99) 113mg/dL (70-99) Calcium Level 9.1mg/dL (8.5-10.1) 8.3mg/dL (8.5-10.1) Lactic Acid Level 0.5mmol/L (0.4-2.0) Laboratory Tests Test 10/28/16 18:09 10/28/16 20:55 10/29/16 06:30 10/29/16 06:50 White Blood Count 8.5x10^3/uL (4.0-11.0) 5.8x10^3/uL (4.0-11.0) Red Blood Count 4.63x10^6/uL (3.50-5.40) 3.86x10^6/uL (3.50-5.40) Hemoglobin 13.1g/dL (12.0-15.5) 11.0g/dL (12.0-15.5) Hematocrit 40.0% (36.0-47.0) 33.6% (36.0-47.0) Mean Corpuscular Volume 86fL (79-100) 87fL (79-100) Mean Corpuscular Hemoglobin 28pg (25-35) 28pg (25-35) Mean Corpuscular Hemoglobin Concent 33g/dL (31-37) 33g/dL (31-37) Red Cell Distribution Width 13.8% (11.5-14.5) 14.4% (11.5-14.5) Platelet Count 187x10^3/uL (140-400) 135x10^3/uL (140-400) Neutrophils (%) (Auto) 74% (31-73) 70% (31-73) Lymphocytes (%) (Auto) 16% (24-48) 17% (24-48) Monocytes (%) (Auto) 8% (0-9) 11% (0-9) Eosinophils (%) (Auto) 1% (0-3) 1% (0-3) Basophils (%) (Auto) 1% (0-3) 1% (0-3) Neutrophils # (Auto) 6.3x10^3uL (1.8-7.7) 4.1x10^3uL (1.8-7.7) Lymphocytes # (Auto) 1.4x10^3/uL (1.0-4.8) 1.0x10^3/uL (1.0-4.8) Monocytes # (Auto) 0.7x10^3/uL (0.0-1.1) 0.6x10^3/uL (0.0-1.1) Eosinophils # (Auto) 0.1x10^3/uL (0.0-0.7) 0.1x10^3/uL (0.0-0.7) Basophils # (Auto) 0.1x10^3/uL (0.0-0.2) 0.0x10^3/uL (0.0-0.2) Urine Collection Type Unknown Urine Color Yellow Urine Clarity Clear Urine pH 6.0 Urine Specific [place] 1.010 Urine Protein 100mg/dL (NEG-TRACE) Urine Glucose (UA) Negativemg/dL (NEG) Urine Ketones (Stick) Negativemg/dL (NEG) Urine Blood Small (NEG) Urine Nitrite Negative (NEG) Urine Bilirubin Negative (NEG) Urine Urobilinogen Dipstick 0.2mg/dL (0.2 mg/dL) Urine Leukocyte Esterase Large (NEG) Urine RBC 6-10/HPF (0-2) Urine WBC Tntc/HPF (0-4) Urine Squamous Epithelial Cells Few/LPF Urine Transitional Epithelial Cells Few/LPF Urine Bacteria Moderate/HPF (0-FEW) Sodium Level 140mmol/L (136-145) 144mmol/L (136-145) Potassium Level 4.4mmol/L (3.5-5.1) 4.6mmol/L (3.5-5.1) Chloride Level 109mmol/L (98-107) 117mmol/L (98-107) Carbon Dioxide Level 13mmol/L (21-32) 11mmol/L (21-32) Anion Gap 18 (6-14) 16 (6-14) Blood Urea Nitrogen 89mg/dL (7-20) 84mg/dL (7-20) Creatinine 7.6mg/dL (0.6-1.0) 6.9mg/dL (0.6-1.0) Estimated GFR (Cockcroft-Gault) 5.2 5.8 Glucose Level 119mg/dL (70-99) 113mg/dL (70-99) Calcium Level 9.1mg/dL (8.5-10.1) 8.3mg/dL (8.5-10.1) Lactic Acid Level 0.5mmol/L (0.4-2.0) Images Images Atrophy of the left kidney is again seen. Several nonobstructing calculi are seen scattered throughout both kidneys, right greater than left. These measure 3 millimeters to 9 millimeters in size. Low attenuation lesions are seen involving both kidneys consistent most likely with cysts. These measure 1 centimeters to 3.3 centimeters in size. A 1.1 centimeter calculus is seen in the right UPJ. This appears to be causing mild obstruction of the right collecting system. There is no evidence of obstruction of the left collecting system. GINA DIETRICH MD Oct 29, 2016 11:25
[2016-10-29] MEDS ORDERED: MAGNESIUM SULFATE 2GM 50 ML IV PRN (11:30)
[2016-10-29] MEDS ORDERED: IOHEXOL 300 MG/ML 50 ML VIAL. ONE (13:20)
[2016-10-29] MEDS ORDERED: IV RINGERS,LACTATED 1000ML 1,000 ML IV SCH (13:35)
[2016-10-29] MEDS ORDERED: MORPHINE SULFATE 2 MG/ML DISP.SYRIN. IV PRN ×2 (13:45)
[2016-10-29] MEDS ORDERED: FENTANYL PF 100 MCG/2 ML VIAL. IV PRN ×2 (13:45)
[2016-10-29] MEDS ORDERED: ONDANSETRON PF 4 MG/2 ML VIAL. IV PRN (14:00)
[2016-10-29] MEDS ORDERED: PROPOFOL 20 ML IV ONE (14:11)
[2016-10-29] MEDS ORDERED: LIDOCAINE 2% 100 MG/5 ML DISP.SYRIN. ONE (14:11)
[2016-10-29] MEDS ORDERED: FENTANYL PF 100 MCG/2 ML VIAL. ONE (14:11)
[2016-10-29 15:00] VITALS: BP 146/57
[2016-10-29] MEDS ORDERED: MORPHINE SULFATE 4 MG/ML DISP.SYRIN. IV PRN (15:15)
--- NOTE | 2016-10-29 15:16 | EKG ---
[facility] [address] [place] [address] Test Date: 2016-10-29 Test Time: 15:04:30 Pat Name: NELIDA SEARS Department: Room: 538 1 Gender: F Bass Fisher: GUILHERME : 1940 Requested By: JOSE STORM Order Number: [id number] Reading MD: Dylon Wilkins Measurements Intervals [place] Rate: 82 P: 47 IA: 190 QRS: -38 QRSD: 92 T: 12 QT: 364 QTc: 428 Interpretive Statements SINUS RHYTHM ABNORMAL LEFT AXIS DEVIATION LEFT ANTERIOR FASCICULAR BLOCK NONSPECIFIC ST-T WAVE CHANGES. CONSIDER ANTEROSEPTAL AND INFERIOR MYOCARDIAL DAMAGE ABNORMAL ECG RI6.01 Compared to ECG 10/21/2015 13:30:42 Poor R-wave progression no longer present Electronically Signed On 10-31-2016 16:02:49 CDT by Dylon Wilkins
[2016-10-29] MEDS ORDERED: NITROGLYCERIN SUBLINGUAL 0.4 MG BOTTLE OF 25. SL ONE (15:35)
[2016-10-29] MEDS: NITROGLYCERIN SUBLINGUAL 0.4 MG BOTTLE OF 25. SL PRN ×2 (15:36→15:53)
--- NOTE | 2016-10-29 16:26 | PDOC2 ---
CARDIAC CONSULT DATE OF CONSULT Date of Consult DATE: 10/29/16 TIME: 16:26 REASON FOR CONSULT Reason for Consult: chest pain REFERRING PHYSICIAN Referring Physician: Dr. Osman SOURCE Source: Chart review, Patient HISTORY OF PRESENT ILLNESS HISTORY OF PRESENT ILLNESS 76 year old female seen in PACU at request of anesthesiologist as patient with chest pain and reporting it felt as though she had an elephant on her chest. Awakened with pain this a.m. She wants to hold her breath as pain is worse with inspiration. Denies history of CAD of ND. EKG with Q waves anteroseptally. Pain associated with nausea (? related to morphine she was given) and dizziness as well as feeling weak for the last week. Had been reluctant to have planned surgical procedure performed. Given SL NTG in PACU X 2 with decrease in her pain. Labs pending. Reason for Visit: chest pain PAST MEDICAL HISTORY Cardiovascular: HTN GI: GERD (?) Heme/Onc: No pertinent hx Hepatobiliary: No pertinent hx Psych: No pertinent hx Musculoskeletal: Osteoarthritis Rheumatologic: No pertinent hx Infectious disease: No pertinent hx ENT: Other (left cataract) Renal/: Chronic renal insuff, UTI, Other (left kidney non-functional; multiple epsiodes of renal calculi requiring surgery) Endocrine: No pertinent hx Dermatology: No pertinent hx PAST SURGICAL HISTORY Past Surgical History: Appendectomy, Cholecystectomy, Tonsillectomy, Colon Resection (gastric bypass) FAMILY HISTORY Family History: Cancer SOCIAL HISTORY Smoke: No ALCOHOL: rare Drugs: None Lives: with Family (son) CURRENT MEDICATIONS CURRENT MEDICATIONS Current Medications Medications (Trade) Dose Ordered Sig/Kvng Route PRN Reason Start Time Stop Time Status Last Admin Dose Admin Fentanyl Citrate 50 mcg 50 mcg 1X ONCE IV 10/28/16 19:00 10/28/16 19:05 DC 10/28/16 19:18 Sodium Chloride 500 ml @ 500 mls/hr 1X ONCE IV 10/28/16 19:00 10/28/16 19:59 DC 10/28/16 19:00 Ceftriaxone Sodium 50 ml @ 100 mls/hr 1X ONCE IV 10/28/16 20:30 10/28/16 20:59 DC 10/28/16 21:21 Sodium Chloride (Iv Sodium Chloride 0.9% 500ml Bag) 500 ml @ 500 mls/hr 1X ONCE IV 10/28/16 20:45 10/28/16 21:44 DC 10/28/16 21:22 Ondansetron HCl 4 mg 4 mg PRN Q8HRS PRN IV NAUSEA/VOMITING 10/28/16 21:00 10/29/16 20:59 10/29/16 13:21 Sodium Chloride (Iv Sodium Chloride 0.9% 1000ml Bag) 1,000 ml @ 100 mls/hr Q10H IV 10/28/16 21:15 10/29/16 21:14 10/28/16 22:00 Fentanyl Citrate 50 mcg 50 mcg PRN Q2HR PRN IV SEVERE PAIN 10/28/16 21:45 10/29/16 13:07 Sodium Bicarbonate 100 meq/Dextrose 1,100 ml @ 100 mls/hr Q11H IV 10/29/16 09:00 10/29/16 08:29 Levofloxacin/ Dextrose (LEVAQUIN 250mg PREMIX) 50 ml @ 50 mls/hr 1X ONCE IV 10/29/16 10:00 10/29/16 10:59 DC 10/29/16 10:00 Morphine Sulfate 4 mg 1X PACU PRN IV MODERATE PAIN 10/29/16 15:15 10/29/16 15:12 Nitroglycerin (Nitrostat) 0.4 mg PRN Q5MIN PRN SL CHEST PAIN 10/29/16 15:45 10/29/16 15:53 ALLERGIES ALLERGIES: Coded Allergies: hydrocodone (Verified Allergy, Intermediate, HALLUCINATIONS, 10/29/16) ROS Review of System 14 point review with pertinent positives in HPI PHYSICAL EXAM General: Alert, Oriented X3, Cooperative, mild distress HEENT: Atraumatic, PERRLA Lungs: Other (decreased in bases) Heart: Regular rate, Normal S1, Normal S2, No murmurs, Other (no carotid bruits ; tele: SR) Abdomen: Normal bowel sounds, Soft, Other (truncal obesity) Extremities: No edema, Normal pulses Skin: No rashes Neuro: Normal speech Psych/Mental Status: Mental status NL, Mood NL MUSCULOSKELETAL: Osteoarthritic changes both hands VITALS VITALS Vital Signs Date Time Temp Pulse Resp B/P Pulse Ox O2 Delivery O2 Flow Rate FiO2 10/29/16 16:16 81 18 135/54 97 Room Air 10/29/16 15:00 97.5 97.5 LABS Lab: Laboratory Tests Test 10/28/16 18:09 10/28/16 20:55 10/29/16 06:30 10/29/16 06:50 White Blood Count 8.5x10^3/uL (4.0-11.0) 5.8x10^3/uL (4.0-11.0) Red Blood Count 4.63x10^6/uL (3.50-5.40) 3.86x10^6/uL (3.50-5.40) Hemoglobin 13.1g/dL (12.0-15.5) 11.0g/dL (12.0-15.5) Hematocrit 40.0% (36.0-47.0) 33.6% (36.0-47.0) Mean Corpuscular Volume 86fL (79-100) 87fL (79-100) Mean Corpuscular Hemoglobin 28pg (25-35) 28pg (25-35) Mean Corpuscular Hemoglobin Concent 33g/dL (31-37) 33g/dL (31-37) Red Cell Distribution Width 13.8% (11.5-14.5) 14.4% (11.5-14.5) Platelet Count 187x10^3/uL (140-400) 135x10^3/uL (140-400) Neutrophils (%) (Auto) 74% (31-73) 70% (31-73) Lymphocytes (%) (Auto) 16% (24-48) 17% (24-48) Monocytes (%) (Auto) 8% (0-9) 11% (0-9) Eosinophils (%) (Auto) 1% (0-3) 1% (0-3) Basophils (%) (Auto) 1% (0-3) 1% (0-3) Neutrophils # (Auto) 6.3x10^3uL (1.8-7.7) 4.1x10^3uL (1.8-7.7) Lymphocytes # (Auto) 1.4x10^3/uL (1.0-4.8) 1.0x10^3/uL (1.0-4.8) Monocytes # (Auto) 0.7x10^3/uL (0.0-1.1) 0.6x10^3/uL (0.0-1.1) Eosinophils # (Auto) 0.1x10^3/uL (0.0-0.7) 0.1x10^3/uL (0.0-0.7) Basophils # (Auto) 0.1x10^3/uL (0.0-0.2) 0.0x10^3/uL (0.0-0.2) Urine Collection Type Unknown Urine Color Yellow Urine Clarity Clear Urine pH 6.0 Urine Specific [place] 1.010 Urine Protein 100mg/dL (NEG-TRACE) Urine Glucose (UA) Negativemg/dL (NEG) Urine Ketones (Stick) Negativemg/dL (NEG) Urine Blood Small (NEG) Urine Nitrite Negative (NEG) Urine Bilirubin Negative (NEG) Urine Urobilinogen Dipstick 0.2mg/dL (0.2 mg/dL) Urine Leukocyte Esterase Large (NEG) Urine RBC 6-10/HPF (0-2) Urine WBC Tntc/HPF (0-4) Urine Squamous Epithelial Cells Few/LPF Urine Transitional Epithelial Cells Few/LPF Urine Bacteria Moderate/HPF (0-FEW) Sodium Level 140mmol/L (136-145) 144mmol/L (136-145) Potassium Level 4.4mmol/L (3.5-5.1) 4.6mmol/L (3.5-5.1) Chloride Level 109mmol/L (98-107) 117mmol/L (98-107) Carbon Dioxide Level 13mmol/L (21-32) 11mmol/L (21-32) Anion Gap 18 (6-14) 16 (6-14) Blood Urea Nitrogen 89mg/dL (7-20) 84mg/dL (7-20) Creatinine 7.6mg/dL (0.6-1.0) 6.9mg/dL (0.6-1.0) Estimated GFR (Cockcroft-Gault) 5.2 5.8 Glucose Level 119mg/dL (70-99) 113mg/dL (70-99) Calcium Level 9.1mg/dL (8.5-10.1) 8.3mg/dL (8.5-10.1) Lactic Acid Level 0.5mmol/L (0.4-2.0) EKG EKG no acute changes ASSESSMENT/PLAN ASSESSMENT/PLAN 1. chest pain no acute changes in EKG; suggestive of previous ND pain is ? reproducible - pt vague regarding this improved with SL NTG X 2 and morphine hold ASA and/or heparin with pending surgery serial markers X 3; repeat EKG in a.m. cancel surgery for today 2. HTN currently controlled without meds 3. renal calculi with cysto pending Problems: VIVIENNE FAULKNER [employer] MACHINE OPERATOR Oct 29, 2016 16:26
[2016-10-29 16:34] LABS: CREATINE KINASE 29 U/L (26-192)
[2016-10-29] MEDS ORDERED: METOPROLOL TARTRATE 5 MG/5 ML VIAL. IVP PRN (17:00)
[2016-10-29 17:03] VITALS: BP 141/64
[2016-10-29] MEDS ORDERED: LIDO:MAALOX:DONNATAL 1:1:1 15 ML SINGLE DOSE SWSW ONE (17:15)
--- NOTE | 2016-10-29 17:25 | CARD ---
APPROVED REPORT EXAM: Two-dimensional and M-mode echocardiogram with Doppler and color Doppler. Other Information Quality : Fair Rhythm : NSR INDICATION Abnormal ECG Chest Pain 2D DIMENSIONS RVDd2.6 (2.9-3.5cm)Left Atrium(2D)3.9 (1.6-4.0cm) IVSd0.9 (0.7-1.1cm)Aortic Root(2D)2.4 (2.0-3.7cm) LVDd5.1 (3.9-5.9cm)LVOT Diameter2.0 (1.8-2.4cm) PWd0.9 (0.7-1.1cm)LVDs3.3 (2.5-4.0cm) FS (%) 35.5 %SV80.9 ml LVEF(%)64.6 (>50%) Aortic Valve AoV Peak Justice.149.6cm/sAoV VTI25.0cm AO Peak GR.8.9mmHgLVOT VTI 19.79cm AO Mean GR.4mmHg Mitral Valve MV E Onegeknb91.4cm/sMV E Peak Gr.8mmHg MV DECEL [id number] A Lommxalm280.1cm/s MV E Mean Gr.3mmHgMV WHF19mt E/A Ratio0.7MV A [id number] MVA (PHT)3.55cm2 TDI Lateral E' P. V8.59cm/sMedial E' P. V11.74cm/s E/Lateral E'8.5E/Medial E'6.3 LEFT VENTRICLE The left ventricle is normal size. There is normal left ventricular wall thickness. Left ventricle sy stolic function is normal. The Ejection Fraction is 60-65%. There is normal LV segmental wall motion. Tissue Doppler imaging reveals mild left ventricular diastolic dysfunction. RIGHT VENTRICLE The right ventricle is normal size. The right ventricular systolic function is normal. ATRIA The left atrium size is normal. The right atrium size is normal. The interatrial septum is intact wit h no evidence for an atrial septal defect or patent foramen ovale as noted on 2-D or Doppler imaging. AORTIC VALVE The aortic valve is not well visualized. Doppler and Color Flow revealed no significant aortic regurg itation. There is no significant aortic valvular stenosis. MITRAL VALVE The mitral valve is normal in structure and function. There is no mitral valve stenosis. Doppler and Color Flow revealed no mitral valve regurgitation noted. TRICUSPID VALVE The tricuspid valve is normal in structure and function. Doppler and Color Flow revealed no tricuspid valve regurgitation noted. Unable to estimate PA pressure. There is no tricuspid valve stenosis. PULMONIC VALVE The pulmonic valve is not well visualized. Doppler and Color Flow revealed no pulmonic valvular regur gitation. There is no pulmonic valvular stenosis. GREAT VESSELS The aortic root is normal in size. Pulmonary veins not recorded. The IVC is normal in size and collap ses >50% with inspiration. PERICARDIAL EFFUSION There is no evidence of significant pericardial effusion. Critical Notification Critical Value: No <Conclusion> Left ventricle systolic function is normal. The Ejection Fraction is 60-65%. There is normal LV segmental wall motion. Technically difficult study
[2016-10-29 19:10] VITALS: BP 150/64
[2016-10-29 23:10] VITALS: BP 145/67
[2016-10-30] VITALS (11 sets, daily range): BP systolic 124–154; BP diastolic 52–70
[2016-10-30 04:56] LABS: ALBUMIN 2.7 g/dL (3.4-5.0); CREATININE 6.7 mg/dL (0.6-1.0); PHOSPHORUS 5.5 mg/dL (2.6-4.7); POTASSIUM 3.5 mmol/L (3.5-5.1)
--- NOTE | 2016-10-30 05:41 | CONS ---
DATE OF CONSULTATION: HISTORY OF PRESENT ILLNESS: The patient is a pleasant 76-year-old female who is followed by Dr. Vic Nguyen. She is known to have at least a poorly functioning left kidney or nonfunctioning kidney. This is felt to be from previous kidney stones. She has had numerous kidney stones especially after her gastric bypass surgery. She does not know the nature of the same, but she feels that she was given Urocit-K packets to take in the past. She has not been doing so in the recent past. She apparently presented to Dr. Nguyen's office and was found to have a UTI. Blood cultures were also drawn. She has been feeling poorly and has had some chills and subjective fevers, nausea, no vomiting and right-sided flank pain. She was treated by Dr. Nguyen; however, her blood cultures came positive and she was admitted to the hospital for further evaluation. On check here, she was noted to have bicarbonate of 13, gap of 18, BUN 89, creatinine 7.6. CT of the abdomen were done, which shows a 1.1 cm right UP junction stone. She is scheduled for urological intervention later today. PAST MEDICAL HISTORY: Significant for numerous kidney stones in the past. She has had urological intervention for the same, retinal hemorrhage/bleeds in the past require injections, tonsillectomy, hypertension, appendectomy, cholecystectomy, gastric bypass surgery, chronic diarrhea, possible CKD, kidney stones, arthritis and cardiac disorder, details are not known. FAMILY HISTORY: Negative for known kidney stones. PAST SURGICAL HISTORY: Positive for cystoscopy and stone surgeries, 2 of which have been by her reports. FAMILY HISTORY: Negative for known kidney problems that she admits to. SOCIAL HISTORY: Nonsmoker, nondrinker, lives by herself. For rest of details, see electronic records. GINA DIETRICH MD DR: SPENCER/bibiana JOB#: [id number] / [id number]
[2016-10-30 05:43] LABS: CHOLESTEROL/HDL RATIO 1.8
[2016-10-30] MEDS: SODIUM BICARBONATE VIAL 100 MEQ in IV DEXTROSE 5% 1,000 ML IV SCH ×2 (05:55→10:00)
--- NOTE | 2016-10-30 06:47 | PDOC ---
Provider Note Provider Note UROLOGY: Patient experienced "chest pain" yesterday. Currently undergoing evaluation by Cardiology Plan: Will put patient back on surgery schedule when Cardiology gives clearance. KUSH HECK DO Oct 30, 2016 06:47
--- NOTE | 2016-10-30 08:13 | EKG ---
[facility] [address] [place] [address] Test Date: 2016-10-30 Test Time: 08:12:34 Pat Name: NELIDA SEARS Department: Room: [facility] Gender: F Record Label Internship: GUILHERME : 1940 Requested By: VIVIENNE FAULKNER Order Number: [id number] Reading MD: Dylon Wilkins Measurements Intervals [place] Rate: 72 P: 0 [place]: 152 QRS: -36 QRSD: 96 T: 11 QT: 382 QTc: 424 Interpretive Statements SINUS RHYTHM ABNORMAL LEFT AXIS DEVIATION LEFT ANTERIOR FASCICULAR BLOCK NONSPECIFIC ST-T WAVE CHANGES. ABNORMAL ECG RI6.01 Electronically Signed On 10-31-2016 16:03:32 CDT by Dylon Wilkins
--- NOTE | 2016-10-30 08:15 | PDOC ---
SUBJECTIVE Subjective Pt states that she went for her procedure yesterday and felt like she had an elephant sit on her chest. Never felt that way before; releaved with medications given. She says it is possible it could have been related to anxiety, but says that she is not sure why she would have been anxious as she has had this procedure done before. She is feeling better this morning, other than her continued abdominal/flank pain OBJECTIVE Vital Signs Vital Signs Date Time Temp Pulse Resp B/P Pulse Ox O2 Delivery O2 Flow Rate FiO2 10/30/16 03:15 98.5 68 16 142/63 97 98.5 10/30/16 03:10 98.5 68 16 142/63 97 Room Air 98.5 10/29/16 23:10 98.4 77 18 145/67 97 Room Air 98.4 10/29/16 20:00 Room Air 10/29/16 19:10 98.2 71 18 150/64 98 Room Air 98.2 10/29/16 17:03 98.3 79 20 141/64 96 Room Air 98.3 10/29/16 16:16 81 18 135/54 97 Room Air 10/29/16 16:03 81 16 149/52 97 Room Air 10/29/16 15:56 88 16 91/54 95 Room Air 10/29/16 15:53 88 91/54 10/29/16 15:46 88 20 129/60 96 Room Air 10/29/16 15:43 78 20 129/51 20 Room Air 10/29/16 15:36 76 20 151/49 98 Room Air 10/29/16 15:36 76 151/49 10/29/16 15:12 20 99 Room Air 10/29/16 15:00 97.5 84 16 146/57 98 Room Air 97.5 10/29/16 14:48 97.2 81 18 172/66 99 Room Air 97.2 10/29/16 13:53 Room Air 10/29/16 13:07 Room Air 10/29/16 08:30 Room Air I & O Intake and Output 10/30/16 07:00 Intake Total 640 ml Output Total 900 ml Balance -260 ml Intake Oral 640 ml Output Urine Total 900 ml PHYSICAL EXAM Physical Exam General: Alert, Oriented X3, Cooperative HEENT: Atraumatic, PERRLA Lungs: Clear to auscultation, Normal air movement Heart: RRR, no rubs, no gallops, no murmurs Abdomen: Normal bowel sounds, Soft, Other (TTP lower abdomen) Extremities: No clubbing, No cyanosis Skin: No rashes, No breakdown, No significant lesion Neuro: Normal tone, Sensation intact, Cranial nerves 3-12 NL Psych/Mental Status: Mental status NL, Mood NL ASSESSMENT/PLAN Assessment/Plan Pt is a 76yoCF admitted for acute renal failure related to kidney stone 1)Acute renal failure- likely with chronic element, 2/2 obstruction. Renal following; pt on NaHCO3 gtt. 2)Metabolic acidosis- 2/2 above. Improving on NaHCO3 gtt. 3)Kidney stone- obstructive, pt to go for procedure hopefully later today 4)Chest pain- serial enzymes WNL, repeat EKG pending this morning. ECHO essentially normal. Cardiology following 5)UTI- treating. Received dose of Levaquin yesterday, will need next dose tomorrow. 6)Anemia- partly dilutional, but worsened this morning. No active bleeding. Possible epogen per Nephrology 7)Thrombocytopenia- likely partly dilutional. CTM 8)CHF- diastolic, compensated. Problems: COMMENT Lab Laboratory Tests Test 10/29/16 16:00 10/29/16 22:00 10/30/16 04:15 Creatine Kinase 29U/L (26-192) Creatine Kinase MB (Mass) 1.0ng/mL (0.0-3.6) Creatine Kinase MB Relative Index % (0-4) Troponin I Quantitative < 0.017ng/mL (0.000-0.055) < 0.017ng/mL (0.000-0.055) < 0.017ng/mL (0.000-0.055) Hemoglobin 10.2g/dL (12.0-15.5) Sodium Level 142mmol/L (136-145) Potassium Level 3.5mmol/L (3.5-5.1) Chloride Level 111mmol/L (98-107) Carbon Dioxide Level 17mmol/L (21-32) Anion Gap 14 (6-14) Blood Urea Nitrogen 72mg/dL (7-20) Creatinine 6.7mg/dL (0.6-1.0) Estimated GFR (Cockcroft-Gault) 6.0 Glucose Level 123mg/dL (70-99) Calcium Level 8.0mg/dL (8.5-10.1) Phosphorus Level 5.5mg/dL (2.6-4.7) Magnesium Level 1.6mg/dL (1.8-2.4) Albumin 2.7g/dL (3.4-5.0) Triglycerides Level 52mg/dL (0-150) Cholesterol Level 70mg/dL (0-200) LDL Cholesterol, Calculated 22mg/dL (0-100) VLDL Cholesterol, Calculated 10mg/dL (0-40) HDL Cholesterol 38mg/dL (40-60) Cholesterol/HDL Ratio 1.8 IFEANYI MARAVILLA MD Oct 30, 2016 08:15
--- NOTE | 2016-10-30 09:29 | PDOC ---
SUBJECTIVE ROS DHAVAL Had CP yest and was transferred to TELE, Cysto eval held CVS: no Orthopnea, no current CP RESP: no SOB, no MALDONADO GI: no Nausea, no Vomiting : no Dysuria, no Urgency OBJECTIVE Vital Signs Vital Signs Date Time Temp Pulse Resp B/P Pulse Ox O2 Delivery O2 Flow Rate FiO2 10/30/16 07:00 98.0 70 19 149/65 93 Room Air 98.0 I & 0 Intake and Output 10/30/16 07:00 Intake Total 640 ml Output Total 900 ml Balance -260 ml Intake Oral 640 ml Output Urine Total 900 ml PHYSICAL EXAM Physical Exam General Appearance: Awake Alert Oriented x 3 In min Distress Eyes: VIsion Unchanged Conjunctiva Normal EN: No EN Drainage Mucous Memb. dry Neck: no JVD no JVP Supple no Thyromegaly CVS: S1 S2 no Murmur No Gallop No Rub no Edema Resp: no Rales no Rhonchi no Acc. Muscle use GI: BS hypoactive NO Bruit + RLQ Tender Non Distended : + Rt CVA tenderness; min Suprapubic Tenderness Assessment & Plan Sev Met Acidosis : now only NAG - suspect due to ch diarrhea and IV NS. Have changed to IVF with Bicarb for now, reval trend after Ureteral stenting ARF: obstructive UROPATHY in suspected single functioning kidney. Reval after UROlogical intervention? Current FLuid and E-lyte status does not necessitate emergent need for Dialysis. Will re-evaluate for Dialysis in am CKD (basline NA in our system) given Atrophy of the left kidney as seen on CT and presumably Non-fucntional Kidney stones suspect due to intestinal Bypass yareli if felt to have oxalate stones. may need stone analysis when passes/ removed; check PTH Low Mag - IV mag as ordered Anemia: check iron, Epogen not ordered for hgb > 10; Transfuse as needed for hgb < 7 HTN: Current BP meds reviewed. See orders for changes. Discussed Plan of Care and prognosis etc. at length with pt COMMENT/RELEVANT DATA Meds Current Medications Medications (Trade) Dose Ordered Sig/Kvng Start Time Stop Time Status Last Admin Dose Admin Ceftriaxone Sodium 50 ml @ 100 mls/hr 1X ONCE 10/28/16 20:30 10/28/16 20:59 DC 10/28/16 21:21 100 MLS/HR Fentanyl Citrate (Fentanyl 2ml Vial) 100 mcg STK-MED ONCE 10/29/16 14:11 10/29/16 14:12 DC Fentanyl Citrate 50 mcg 50 mcg PRN Q2HR PRN 10/28/16 21:45 10/29/16 13:07 50 MCG Iohexol (Omnipaque 300 Mg/ml) 50 ml STK-MED ONCE 10/29/16 13:20 10/29/16 13:45 DC Lactated Ringer's (Iv Lactated Ringers) 1,000 ml @ 50 mls/hr Q20H 10/29/16 13:35 10/30/16 01:34 DC Levofloxacin/ Dextrose (LEVAQUIN 250mg PREMIX) 50 ml @ 50 mls/hr 1X ONCE 10/31/16 10:00 10/31/16 10:59 Lidocaine HCl 100 mg 100 mg STK-MED ONCE 10/29/16 14:11 10/29/16 14:12 DC Magnesium Sulfate/ Dextrose (Magnesium Sulfate PREMIX 2GM) 50 ml @ 25 mls/hr PRN DAILY PRN 10/29/16 11:30 Metoprolol Tartrate (Lopressor) 2.5 mg PRN Q6HRS PRN 10/29/16 17:00 Morphine Sulfate 4 mg 1X PACU PRN 10/29/16 15:15 10/29/16 15:12 4 MG Morphine Sulfate 2 mg 2 mg PRN Q10MIN PRN 10/29/16 13:45 10/30/16 13:44 Multi-Ingredient Mouthwash/Gargle 15 ml 15 ml 1X ONCE 10/29/16 17:15 10/29/16 17:16 DC Nitroglycerin (Nitrostat) 0.4 mg PRN Q5MIN PRN 10/29/16 15:45 10/29/16 15:53 0.4 MG Ondansetron HCl (Zofran) 4 mg PRN Q6HRS PRN 10/29/16 14:00 Ondansetron HCl 4 mg 4 mg PRN Q8HRS PRN 10/28/16 21:00 10/29/16 20:59 DC 10/29/16 13:21 4 MG Propofol (Diprivan) 20 ml @ As Directed STK-MED ONCE 10/29/16 14:11 10/29/16 14:12 DC Sodium Bicarbonate 100 meq/Dextrose 1,100 ml @ 100 mls/hr Q11H 10/29/16 09:00 10/30/16 05:55 100 MLS/HR Sodium Bicarbonate 2 meq/ Dextrose 1,002 ml @ 100 mls/hr Q10H2M 10/29/16 07:45 10/29/16 07:45 DC Sodium Chloride (Iv Sodium Chloride 0.9% 500ml Bag) 500 ml @ 500 mls/hr 1X ONCE 10/28/16 20:45 10/28/16 21:44 DC 10/28/16 21:22 500 MLS/HR Sodium Chloride (Iv Sodium Chloride 0.9% 1000ml Bag) 1,000 ml @ 100 mls/hr Q10H 10/28/16 21:15 10/29/16 21:14 DC 10/28/16 22:00 100 MLS/HR Lab Laboratory Tests Test 10/29/16 16:00 10/29/16 22:00 10/30/16 04:15 Creatine Kinase 29U/L (26-192) Creatine Kinase MB (Mass) 1.0ng/mL (0.0-3.6) Creatine Kinase MB Relative Index % (0-4) Troponin I Quantitative < 0.017ng/mL (0.000-0.055) < 0.017ng/mL (0.000-0.055) < 0.017ng/mL (0.000-0.055) Hemoglobin 10.2g/dL (12.0-15.5) Sodium Level 142mmol/L (136-145) Potassium Level 3.5mmol/L (3.5-5.1) Chloride Level 111mmol/L (98-107) Carbon Dioxide Level 17mmol/L (21-32) Anion Gap 14 (6-14) Blood Urea Nitrogen 72mg/dL (7-20) Creatinine 6.7mg/dL (0.6-1.0) Estimated GFR (Cockcroft-Gault) 6.0 Glucose Level 123mg/dL (70-99) Calcium Level 8.0mg/dL (8.5-10.1) Phosphorus Level 5.5mg/dL (2.6-4.7) Magnesium Level 1.6mg/dL (1.8-2.4) Albumin 2.7g/dL (3.4-5.0) Triglycerides Level 52mg/dL (0-150) Cholesterol Level 70mg/dL (0-200) LDL Cholesterol, Calculated 22mg/dL (0-100) VLDL Cholesterol, Calculated 10mg/dL (0-40) HDL Cholesterol 38mg/dL (40-60) Cholesterol/HDL Ratio 1.8 GINA DIETRICH MD Oct 30, 2016 09:29
[2016-10-30 10:08] LABS: % SAT IRON 32 % (15-34); IRON,SERUM 54 ug/dL (50-170)
--- NOTE | 2016-10-30 10:16 | PDOC ---
CARDIO Progress Notes Date and Time Date of Service 10/30/2016 Time of Evaluation 1016 Subjective Subjective: No Chest Pain, No shortness of breath, No Palpitations, No Dizziness Comments: now stating she had vomited prior to going to surgery yesterday Vitals Vitals Vital Signs Date Time Temp Pulse Resp B/P Pulse Ox O2 Delivery O2 Flow Rate FiO2 10/30/16 08:10 Room Air 10/30/16 07:00 98.0 70 19 149/65 93 98.0 Weight Weight [ ] Input and Output Intake and Output Intake and Output 10/30/16 07:00 Intake Total 640 ml Output Total 900 ml Balance -260 ml Intake Oral 640 ml Output Urine Total 900 ml Laboratory Labs Laboratory Tests Test 10/29/16 16:00 10/29/16 22:00 10/30/16 04:15 Creatine Kinase 29U/L (26-192) Creatine Kinase MB (Mass) 1.0ng/mL (0.0-3.6) Creatine Kinase MB Relative Index % (0-4) Troponin I Quantitative < 0.017ng/mL (0.000-0.055) < 0.017ng/mL (0.000-0.055) < 0.017ng/mL (0.000-0.055) Hemoglobin 10.2g/dL (12.0-15.5) Reticulocyte Count (auto) 0.9% (0.5-2.5) Sodium Level 142mmol/L (136-145) Potassium Level 3.5mmol/L (3.5-5.1) Chloride Level 111mmol/L (98-107) Carbon Dioxide Level 17mmol/L (21-32) Anion Gap 14 (6-14) Blood Urea Nitrogen 72mg/dL (7-20) Creatinine 6.7mg/dL (0.6-1.0) Estimated GFR (Cockcroft-Gault) 6.0 Glucose Level 123mg/dL (70-99) Calcium Level 8.0mg/dL (8.5-10.1) Phosphorus Level 5.5mg/dL (2.6-4.7) Magnesium Level 1.6mg/dL (1.8-2.4) Iron Level 54ug/dL (50-170) Total Iron Binding Capacity 168ug/dL (250-450) Iron Saturation 32% (15-34) Albumin 2.7g/dL (3.4-5.0) Triglycerides Level 52mg/dL (0-150) Cholesterol Level 70mg/dL (0-200) LDL Cholesterol, Calculated 22mg/dL (0-100) VLDL Cholesterol, Calculated 10mg/dL (0-40) HDL Cholesterol 38mg/dL (40-60) Cholesterol/HDL Ratio 1.8 Microbiology Micro Microbiology 10/28/16 Blood Culture - Preliminary, Resulted NO GROWTH AFTER 1 DAY 10/28/16 Urine Culture - Preliminary, Resulted 10/28/16 Urine Culture Result 1 (COLE) - Preliminary, Resulted Physical Exam HEENT: Neck Supple W Full Motion Chest: Symmetric LUNGS: Clear to Auscultation Heart: S1S2, RRR, no murmurs, other (tele: SR with PSVT runs ~ 135) Abdomen: Soft N/T, Other (truncal obesity) Neurology: alert, oriented Assessment Assessment 1. chest pain troponin levels not consistent with AMI X 3 pain resolved after 3rd NTG - - was not given GI cocktail that was ordered EKG completed this a.m. - no change from yesterday ECHO with preserved LVEF and no WMA suspect pain was related to vomiting or reflux no further cardiac evaluation at this time 2. HTN currently controlled without meds 3. renal calculi with cysto/stents pending May transfer back to med-surg VIVIENNE FAULKNER APRN Oct 30, 2016 10:16
[2016-10-30] MEDS: PANTOPRAZOLE IV PUSH 40 MG VIAL. IVP SCH (12:08)
[2016-10-30] MEDS ORDERED: IOHEXOL 300 MG/ML 50 ML VIAL. ONE (14:56)
[2016-10-30] MEDS: CEFTRIAXONE SODIUM 1 GM in IV NORMAL SALINE 50ML 50 ML IV SCH ×2 (16:00→17:11)
[2016-10-30] MEDS ORDERED: CEFTRIAXONE 1GM IVPB FOR OMNI 50 ML IV ONE (17:03)
[2016-10-30 17:18] LABS: PTH INTACT 158 pg/mL (15-65)
[2016-10-30] MEDS ORDERED: PHENYLEPHRINE in 0.9% NACL PF 1 MG/10 ML DISP.SYRIN. IV ONE (17:20)
--- NOTE | 2016-10-30 17:45 | PDOC ---
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
[2016-10-30] MEDS ORDERED: DEXAMETHASONE SOD PHOS 20 MG/5 ML VIAL. ONE (17:50)
[2016-10-30] MEDS ORDERED: ONDANSETRON PF 4 MG/2 ML VIAL. ONE (17:50)
[2016-10-30] MEDS ORDERED: SEVOFLURANE 61 TO 120 MINUTES. IH ONE (17:52)
[2016-10-30] MEDS ORDERED: SEVOFLURANE 31 TO 60 MINUTES. IH ONE (17:52)
[2016-10-30] MEDS: IV NORMAL SALINE 1000ML BAG 1,000 ML IV SCH (18:03)
[2016-10-30] MEDS: FENTANYL PF 100 MCG/2 ML VIAL. IV PRN ×2 (18:11→18:37)
[2016-10-30] MEDS ORDERED: MIDAZOLAM HCL/PF 2 MG/2 ML VIAL. IV PRN (18:15)
[2016-10-30] MEDS ORDERED: PROCHLORPERAZINE 10 MG/2 ML VIAL. IV PRN (18:15)
[2016-10-30] MEDS ORDERED: FENTANYL PF 100 MCG/2 ML VIAL. IV PRN ×3 (18:15)
[2016-10-30] MEDS ORDERED: ONDANSETRON PF 4 MG/2 ML VIAL. IV PRN (18:15)
[2016-10-30] MEDS ORDERED: MORPHINE SULFATE 2 MG/ML DISP.SYRIN. IV PRN (18:15)
[2016-10-30] MEDS ORDERED: MEPERIDINE PF 25 MG/ML VIAL. IV PRN (18:15)
--- NOTE | 2016-10-30 21:51 | OP ---
DATE OF SURGERY: 10/30/2016 PREOPERATIVE DIAGNOSES: Right flank pain, large proximal right ureteral calculus. POSTOPERATIVE DIAGNOSES: Right flank pain, large proximal right ureteral calculus plus complete duplication right collecting system. PROCEDURE: Cystoscopy, right retrograde pyelograms, placement of indwelling right ureteral stent (4.8 Tunisian x 26 cm). SURGEON: Kush Heck D.O. ANESTHESIA: General. INDICATIONS AND JUDGMENT: This is a 76-year-old female with a history of kidney stones. She presented to the Emergency Room with acute right flank pain. The x-ray studies revealed a large calculus in the proximal right ureter with hydronephrosis. She was placed on IV hydration and analgesia, but the stone was too large to pass spontaneously; therefore, it was felt that she would benefit from cystoscopy, stent placement in preparation for shockwave lithotripsy. This was explained to the patient, she appeared to understand and was agreeable. DESCRIPTION OF PROCEDURE: The patient was given a gram of Rocephin IV. She was then taken to the operating room and placed on the operating room table in a supine position, given a general anesthetic and then placed in a dorsal lithotomy position using Patrick stirrups since we do not have a cystoscopy table. A C-arm was moved into position. Rigid cystoscopy was performed. The bladder was carefully examined. She was found to have two ureteral orifices on the right side. I cannulated the more proximal right ureteral orifice and contrast was injected. Course and caliber of the ureter was normal. There is no hydronephrosis. The more distal ureteral orifice was cannulated. Contrast was injected. The large proximal calculus was identified in the upper pole of the kidney with moderate hydronephrosis. I then advanced 0.035 Glidewire up the more distal ureteral orifice up the ureter, past the stone and into the dilated renal pelvis. Following that, I advanced a 4.8 Tunisian x 26 cm double-J ureteral stent over the wire under fluoroscopy, past the stone and into the renal pelvis. The positioning appeared to be satisfactory; therefore, the wire was removed leaving the stent in place. The patient tolerated the procedure well. Instruments were removed. The patient was sent to recovery room in satisfactory condition. Plans will be to allow the patient to go home with the stent. We will schedule her for outpatient shockwave lithotripsy in the near future. KUSH HECK DO DR: BETI/bibiana JOB#: [id number] / [id number]
[2016-10-31] MEDS: IV NORMAL SALINE 1000ML BAG 1,000 ML IV SCH (02:03)
[2016-10-31 03:00] VITALS: BP 121/55
[2016-10-31 06:13] LABS: HEMATOCRIT 31.7 % (36.0-47.0); HEMOGLOBIN 10.5 g/dL (12.0-15.5); RED BLOOD COUNT 3.71 x10^6/uL (3.50-5.40); RED CELL DISTRIBUTION WIDTH 14.1 % (11.5-14.5); WHITE BLOOD COUNT 2.6 x10^3/uL (4.0-11.0)
[2016-10-31 06:40] LABS: ALBUMIN 2.6 g/dL (3.4-5.0); CREATININE 6.3 mg/dL (0.6-1.0); GFR 6.4; PHOSPHORUS 3.5 mg/dL (2.6-4.7); POTASSIUM 3.7 mmol/L (3.5-5.1)
[2016-10-31 07:00] VITALS: BP 162/60
--- NOTE | 2016-10-31 07:25 | CONS ---
DATE OF CONSULTATION: 10/29/2016 CHIEF COMPLAINT: Acute right flank pain, acute renal failure. HISTORY OF PRESENT ILLNESS: A 76-year-old female who was admitted to the Emergency Room with acute right flank pain. She had been experiencing some flank pain for several days. She does have a history of kidney stones. On her arrival to the Emergency Room, she was found to be in acute renal failure. CT scan revealed a large calculus in the proximal right ureter. Therefore, Urology was asked to see the patient. PAST MEDICAL HISTORY: The patient states that she has had multiple kidney stones in the past. She has had lithotripsy in the past. She has occasional kidney infection, hypertension, and recurrent urinary tract infections. PAST SURGICAL HISTORY: She has had an appendectomy, cholecystectomy, tonsillectomy, ureteral stents, and lithotripsy. She has also had intestinal bypass several years ago. SOCIAL HISTORY: The patient is retired, lives by herself. REVIEW OF SYSTEMS: A 14-point review of systems performed, most significant is her HPI. ALLERGIES: The patient states she is allergic to hydrocodone, it gives her hallucinations. PHYSICAL EXAMINATION: GENERAL DESCRIPTION: A pleasant 76-year-old obese female. She is alert and oriented. She is in no acute pain at this time. ABDOMEN: Soft, nontender. Negative for guarding or rigidity. No rebound tenderness. She has some mild right flank discomfort to deep palpation. The left flank was normal. There is no suprapubic tenderness. EXTREMITIES: Negative for cyanosis or edema. LABORATORY STUDIES: The patient's hemoglobin 13.1, hematocrit 40, white blood cell count was 8.5, platelets were adequate. The patient's creatinine at the time of admission was 7.6. Currently, her creatinine is 6.7, BUN is 72. Urinalysis: Stacey in color, large leukocytes, 6-10 red blood cells per high-power field, too numerous to count white blood cells, moderate bacteria. Urine culture is pending at this time. X-RAY STUDIES: Noncontrast CT scan revealed a 1.1-cm calculus at the right UPJ. IMPRESSION: 1. Acute right flank pain -- improved. 2. Proximal right ureteral calculus with high-grade obstruction. 3. Acute renal failure. PLANS: 1. We will schedule the patient for a cystoscopy and placement of right ureteral stent to relieve the obstruction to the kidney. 2. Nephrology has been consulted. 3. Once the stent is established and her renal function reaches baseline, we will schedule her for outpatient shockwave lithotripsy. KUSH HECK DO DR: Edilberto JOB#: [id number] / [id number]
--- NOTE | 2016-10-31 08:35 | RAD ---
Abdomen radiograph History: Follow-up right stent placement and calculus. Comparison: 10/15/2010. Findings: AP portable supine view of the abdomen. There is a right double-J ureteral stent. There is a 7 mm calcification adjacent to the stent at the expected location of the UPJ. There are also 3 calcifications projecting over the right renal shadow ranging in size from 2 to 5 mm. There are 2 calcifications projecting over the left renal shadow each measuring 7 mm. No convincing stone is seen along the expected course of the left ureter. Calcifications in the pelvis are favored to be phleboliths. Impression: 1. Right ureteral stent. 7 mm stone adjacent to the stent at the expected location of the UPJ. 2. Bilateral nephrolithiasis.
[2016-10-31] MEDS: SODIUM BICARBONATE VIAL 100 MEQ in IV DEXTROSE 5% 1,000 ML IV SCH ×3 (08:59)
[2016-10-31] MEDS: PANTOPRAZOLE IV PUSH 40 MG VIAL. IVP SCH (08:59)
[2016-10-31 11:00] VITALS: BP 126/64
--- NOTE | 2016-10-31 14:09 | PDOC ---
SUBJECTIVE ROS DHAVAL Doign adn feeling much better today CVS: no Orthopnea, no CP RESP: no SOB, no MALDONADO GI: no Nausea, no Vomiting : no Dysuria, no Urgency; some hematuria OBJECTIVE Vital Signs Vital Signs Date Time Temp Pulse Resp B/P Pulse Ox O2 Delivery O2 Flow Rate FiO2 10/31/16 11:00 97.5 58 18 126/64 95 Room Air 97.5 10/30/16 17:43 10 I & 0 Intake and Output 10/31/16 07:00 Intake Total 2175 ml Output Total 0 ml Balance 2175 ml Intake Oral 500 ml IV Total 1675 ml Estimated Blood Loss 0 ml # Voids 3 PHYSICAL EXAM Physical Exam General Appearance: Awake Alert Oriented x 3 In min Distress Eyes: VIsion Unchanged Conjunctiva Normal EN: No EN Drainage Mucous Memb. dry Neck: no JVD no JVP Supple no Thyromegaly CVS: S1 S2 no Murmur No Gallop No Rub no Edema Resp: no Rales no Rhonchi no Acc. Muscle use GI: BS hypoactive NO Bruit non Tender Non Distended : min CVA tenderness; min Suprapubic Tenderness Assessment & Plan Sev Met Acidosis : now only better with IVF with Bicarb ARF: obstructive UROPATHY in suspected single functioning kidney. Reval after Urological intervention? Current FLuid and E-lyte status does not necessitate emergent need for Dialysis. Will re-evaluate for Dialysis in am CKD - ? III (basline NA in our system) given Atrophy of the left kidney as seen on CT and presumably Non-functional Kidney stones suspect due to intestinal Bypass yareli if felt to have oxalate stones. may need stone analysis when passes/ removed; check PTH Anemia: adequate Fe for now, ? due to CKD and anow some due to hematuria too HTN: Current BP meds reviewed. See orders for changes. Discussed Plan of Care and prognosis etc. at length with pt COMMENT/RELEVANT DATA Meds Current Medications Medications (Trade) Dose Ordered Sig/Kvng Start Time Stop Time Status Last Admin Dose Admin Ceftriaxone Sodium 1 gm/ Sodium Chloride 50 ml @ 100 mls/hr Q24H 10/30/16 16:00 10/30/16 17:11 100 MLS/HR Ceftriaxone Sodium (Rocephin 1gm Ivpb For Omni) 50 ml @ As Directed STK-MED ONCE 10/30/16 17:03 10/30/16 17:04 DC Dexamethasone Sodium Phosphate (Decadron) 20 mg STK-MED ONCE 10/30/16 17:50 10/30/16 17:51 DC Fentanyl Citrate (Fentanyl 2ml Vial) 25 mcg PRN Q5MIN PRN 10/30/16 18:15 10/31/16 18:14 Fentanyl Citrate 50 mcg 50 mcg PRN Q5MIN PRN 10/30/16 18:15 10/31/16 18:14 Iohexol (Omnipaque 300 Mg/ml) 50 ml STK-MED ONCE 10/29/16 13:20 10/29/16 13:45 DC Iohexol 50 ml 50 ml STK-MED ONCE 10/30/16 14:56 10/30/16 14:57 DC 10/30/16 15:13 13 ML Lactated Ringer's (Iv Lactated Ringers) 1,000 ml @ 50 mls/hr Q20H 10/29/16 13:35 10/30/16 01:34 DC Levofloxacin/ Dextrose (LEVAQUIN 250mg PREMIX) 50 ml @ 50 mls/hr 1X ONCE 10/31/16 10:00 10/31/16 10:00 DC Lidocaine HCl 100 mg 100 mg STK-MED ONCE 10/29/16 14:11 10/29/16 14:12 DC Magnesium Sulfate/ Dextrose (Magnesium Sulfate PREMIX 2GM) 50 ml @ 25 mls/hr PRN DAILY PRN 10/29/16 11:30 10/30/16 10:00 25 MLS/HR Meperidine HCl (Demerol) 12.5 mg PRN Q5MIN PRN 10/30/16 18:15 10/31/16 23:00 Metoprolol Tartrate (Lopressor) 2.5 mg PRN Q6HRS PRN 10/29/16 17:00 Midazolam HCl (Versed) 2 mg PRN 1X PRN 10/30/16 18:15 10/31/16 18:14 Morphine Sulfate 2 mg PRN Q10MIN PRN 10/30/16 18:15 10/31/16 23:00 Morphine Sulfate 2 mg 2 mg PRN Q10MIN PRN 10/29/16 13:45 10/30/16 13:44 DC Multi-Ingredient Mouthwash/Gargle 15 ml 15 ml 1X ONCE 10/29/16 17:15 10/29/16 17:16 DC Nitroglycerin (Nitrostat) 0.4 mg PRN Q5MIN PRN 10/29/16 15:45 10/29/16 15:53 0.4 MG Ondansetron HCl (Zofran) 4 mg PRN Q6HRS PRN 10/30/16 18:15 10/31/16 23:00 Ondansetron HCl 4 mg 4 mg PRN Q8HRS PRN 10/28/16 21:00 10/29/16 20:59 DC 10/29/16 13:21 4 MG Pantoprazole Sodium (Protonix Vial) 40 mg DAILYAC 10/30/16 11:30 10/31/16 08:59 40 MG Phenylephrine HCl 1 mg STK-MED ONCE 10/30/16 17:20 10/30/16 17:21 DC Prochlorperazine Edisylate (Compazine) 5 mg PRN Q6HRS PRN 10/30/16 18:15 10/31/16 23:00 Propofol (Diprivan) 20 ml @ As Directed STK-MED ONCE 10/29/16 14:11 10/29/16 14:12 DC Sevoflurane (Ultane) 30 ml STK-MED ONCE 10/30/16 17:52 10/30/16 17:53 DC Sodium Bicarbonate 100 meq/Dextrose 1,100 ml @ 100 mls/hr Q11H 10/29/16 09:00 10/31/16 08:59 100 MLS/HR Sodium Bicarbonate 2 meq/ Dextrose 1,002 ml @ 100 mls/hr Q10H2M 10/29/16 07:45 10/29/16 07:45 DC Sodium Chloride (Iv Sodium Chloride 0.9% 500ml Bag) 500 ml @ 500 mls/hr 1X ONCE 10/28/16 20:45 10/28/16 21:44 DC 10/28/16 21:22 500 MLS/HR Sodium Chloride (Iv Sodium Chloride 0.9% 1000ml Bag) 1,000 ml @ 125 mls/hr Q8H 10/30/16 18:03 10/31/16 06:02 DC Lab Laboratory Tests Test 10/31/16 05:30 White Blood Count 2.6x10^3/uL (4.0-11.0) Red Blood Count 3.71x10^6/uL (3.50-5.40) Hemoglobin 10.5g/dL (12.0-15.5) Hematocrit 31.7% (36.0-47.0) Mean Corpuscular Volume 86fL (79-100) Mean Corpuscular Hemoglobin 28pg (25-35) Mean Corpuscular Hemoglobin Concent 33g/dL (31-37) Red Cell Distribution Width 14.1% (11.5-14.5) Platelet Count 123x10^3/uL (140-400) Sodium Level 141mmol/L (136-145) Potassium Level 3.7mmol/L (3.5-5.1) Chloride Level 110mmol/L (98-107) Carbon Dioxide Level 19mmol/L (21-32) Anion Gap 12 (6-14) Blood Urea Nitrogen 61mg/dL (7-20) Creatinine 6.3mg/dL (0.6-1.0) Estimated GFR (Cockcroft-Gault) 6.4 Glucose Level 202mg/dL (70-99) Calcium Level 8.0mg/dL (8.5-10.1) Phosphorus Level 3.5mg/dL (2.6-4.7) Magnesium Level 2.1mg/dL (1.8-2.4) Albumin 2.6g/dL (3.4-5.0) GINA DIETRICH MD Oct 31, 2016 14:09
[2016-10-31 15:00] VITALS: BP 170/75
--- NOTE | 2016-10-31 18:22 | PDOC ---
PROGRESS NOTES Subjective Subjective Pt seen on rounds this am with her nurse in room, no new issues, pain controlled , urinating with stent in place. Creatinine still over 6 but improved from admission, she is not desiring dialysis, only has the one functioning kidney which was obstructed by stone prior to procedure yesterday. She has a UTI per culture and now on Rocephin as it was R to Levaquin which has been stopped, no fever, chills or septic signs Objective Objective Vital Signs Date Time Temp Pulse Resp B/P Pulse Ox O2 Delivery O2 Flow Rate FiO2 10/31/16 15:00 98.2 82 18 170/75 95 Room Air 98.2 10/30/16 17:43 10 Intake and Output 10/31/16 07:00 Intake Total 2175 ml Output Total 0 ml Balance 2175 ml Intake Oral 500 ml IV Total 1675 ml Estimated Blood Loss 0 ml # Voids 3 Physical Exam Abdomen: Normal bowel sounds, Soft Heart: Regular rate Extremities: No clubbing, No cyanosis General: Alert, Oriented X3, Cooperative, No acute distress HEENT: Atraumatic Lungs: Clear to auscultation Neck: Supple Neuro: Normal speech Psych/Mental Status: Mental status NL Skin: No breakdown Assessment Assessment Problems Medical Problems: (1) Chest pain - non cardiac, cardiology consult without intervention recommended Status: Acute (2) Flank pain - due to hydronephrosis Status: Acute (3) Stone, kidney causing obstructive uropathy, renal following, dialysis not indicated Status: Acute (4) UTI (urinary tract infection) - now on Rocephin Status: Acute Plan Plan of Care as above, need to see renal function improve prior to discharge, will need stent removal and lithotripsy as outpatient, continue IV Rocephin Comment Review of Relevant I have reviewed the following items rehan (where applicable) has been applied. Labs Laboratory Tests Test 10/29/16 22:00 10/30/16 04:15 10/31/16 05:30 Troponin I Quantitative < 0.017ng/mL (0.000-0.055) < 0.017ng/mL (0.000-0.055) Hemoglobin 10.2g/dL (12.0-15.5) 10.5g/dL (12.0-15.5) Reticulocyte Count (auto) 0.9% (0.5-2.5) Sodium Level 142mmol/L (136-145) 141mmol/L (136-145) Potassium Level 3.5mmol/L (3.5-5.1) 3.7mmol/L (3.5-5.1) Chloride Level 111mmol/L (98-107) 110mmol/L (98-107) Carbon Dioxide Level 17mmol/L (21-32) 19mmol/L (21-32) Anion Gap 14 (6-14) 12 (6-14) Blood Urea Nitrogen 72mg/dL (7-20) 61mg/dL (7-20) Creatinine 6.7mg/dL (0.6-1.0) 6.3mg/dL (0.6-1.0) Estimated GFR (Cockcroft-Gault) 6.0 6.4 Glucose Level 123mg/dL (70-99) 202mg/dL (70-99) Calcium Level 8.0mg/dL (8.5-10.1) 8.0mg/dL (8.5-10.1) Phosphorus Level 5.5mg/dL (2.6-4.7) 3.5mg/dL (2.6-4.7) Magnesium Level 1.6mg/dL (1.8-2.4) 2.1mg/dL (1.8-2.4) Iron Level 54ug/dL (50-170) Total Iron Binding Capacity 168ug/dL (250-450) Iron Saturation 32% (15-34) Ferritin 122ng/mL (8-252) Albumin 2.7g/dL (3.4-5.0) 2.6g/dL (3.4-5.0) Triglycerides Level 52mg/dL (0-150) Cholesterol Level 70mg/dL (0-200) LDL Cholesterol, Calculated 22mg/dL (0-100) VLDL Cholesterol, Calculated 10mg/dL (0-40) HDL Cholesterol 38mg/dL (40-60) Cholesterol/HDL Ratio 1.8 White Blood Count 2.6x10^3/uL (4.0-11.0) Red Blood Count 3.71x10^6/uL (3.50-5.40) Hematocrit 31.7% (36.0-47.0) Mean Corpuscular Volume 86fL (79-100) Mean Corpuscular Hemoglobin 28pg (25-35) Mean Corpuscular Hemoglobin Concent 33g/dL (31-37) Red Cell Distribution Width 14.1% (11.5-14.5) Platelet Count 123x10^3/uL (140-400) Laboratory Tests Test 10/31/16 05:30 White Blood Count 2.6x10^3/uL (4.0-11.0) Red Blood Count 3.71x10^6/uL (3.50-5.40) Hemoglobin 10.5g/dL (12.0-15.5) Hematocrit 31.7% (36.0-47.0) Mean Corpuscular Volume 86fL (79-100) Mean Corpuscular Hemoglobin 28pg (25-35) Mean Corpuscular Hemoglobin Concent 33g/dL (31-37) Red Cell Distribution Width 14.1% (11.5-14.5) Platelet Count 123x10^3/uL (140-400) Sodium Level 141mmol/L (136-145) Potassium Level 3.7mmol/L (3.5-5.1) Chloride Level 110mmol/L (98-107) Carbon Dioxide Level 19mmol/L (21-32) Anion Gap 12 (6-14) Blood Urea Nitrogen 61mg/dL (7-20) Creatinine 6.3mg/dL (0.6-1.0) Estimated GFR (Cockcroft-Gault) 6.4 Glucose Level 202mg/dL (70-99) Calcium Level 8.0mg/dL (8.5-10.1) Phosphorus Level 3.5mg/dL (2.6-4.7) Magnesium Level 2.1mg/dL (1.8-2.4) Albumin 2.6g/dL (3.4-5.0) Microbiology 10/28/16 Blood Culture - Preliminary, Resulted NO GROWTH AFTER 2 DAYS 10/28/16 Urine Culture - Final, Complete 10/28/16 Urine Culture Result 1 (COLE) - Final, Complete 10/28/16 Antimicrobic Susceptibility - Final, Complete Medications Current Medications Fentanyl Citrate 50 mcg 50 mcg 1X ONCE IV Last administered on 10/28/16t 19:18 ; Start 10/28/16 at 19:00; Stop 10/28/16 at 19:05; Status DC Sodium Chloride 500 ml @ 500 mls/hr 1X ONCE IV Last administered on 10/28/16 19:00; Start 10/28/16 at 19:00; Stop 10/28/16 at 19:59; Status DC Ceftriaxone Sodium 50 ml @ 100 mls/hr 1X ONCE IV Last administered on 21:21; Start 10/28/16 at 20:30; Stop 10/28/16 at 20:59; Status DC Sodium Chloride (Iv Sodium Chloride 0.9% 500ml Bag) 500 ml @ 500 mls/hr 1X ONCE IV Last administered on 10/28/16 21:22; Start 10/28/16 at 20:45; Stop at 21:44; Status DC Ondansetron HCl 4 mg 4 mg PRN Q8HRS PRN IV NAUSEA/VOMITING Last administered on 10/29/16 13:21; Start 10/28/16 at 21:00; Stop 10/29/16 at 20:59; Status DC Sodium Chloride (Iv Sodium Chloride 0.9% 1000ml Bag) 1,000 ml @ 100 mls/hr Q10H IV Last administered on 10/28/16 22:00; Start 10/28/16 at 21:15; Stop at 21:14; Status DC Fentanyl Citrate 50 mcg 50 mcg PRN Q2HR PRN IV SEVERE PAIN Last administered on 10/29/16 13:07; Start 10/28/16 at 21:45 Sodium Bicarbonate 2 meq/ Dextrose 1,002 ml @ 100 mls/hr Q10H2M IV ; Start 10/29 at 07:45; Stop 10/29/16 at 07:45; Status DC Sodium Bicarbonate 100 meq/Dextrose 1,100 ml @ 100 mls/hr Q11H IV Last administered on 10/31/16 08:59; Start 10/29/16 at 09:00 Levofloxacin/ Dextrose 50 ml @ 50 mls/hr 1X ONCE IV Last administered on 10:00; Start 10/29/16 at 10:00; Stop 10/29/16 at 10:59; Status DC Magnesium Sulfate/ Dextrose (Magnesium Sulfate PREMIX 2GM) 50 ml @ 25 mls/hr PRN DAILY PRN IV for Mag < 1.7 on am labs Last administered on 10/30/16 10:00; Start 10/29/16 at 11:30 Ondansetron HCl (Zofran) 4 mg PRN Q6HRS PRN IV NAUSEA/VOMITING; Start 10/29/16 at 14:00 Fentanyl Citrate (Fentanyl 2ml Vial) 25 mcg PRN Q5MIN PRN IV Acute Pain; Start 10/29/16 at 13:45; Stop 10/30/16 at 13:44; Status DC Fentanyl Citrate (Fentanyl 2ml Vial) 50 mcg PRN Q5MIN PRN IV Acute Pain; Start 10/29/16 at 13:45; Stop 10/30/16 at 13:44; Status DC Morphine Sulfate 1 mg PRN Q10MIN PRN IV Mild Pain; Start 10/29/16 at 13:45; Stop 10/30/16 at 13:44; Status DC Morphine Sulfate 2 mg 2 mg PRN Q10MIN PRN IV Moderate Pain; Start 10/29/16 at 13 :45; Stop 10/30/16 at 13:44; Status DC Lactated Ringer's (Iv Lactated Ringers) 1,000 ml @ 50 mls/hr Q20H IV ; Start at 13:35; Stop 10/30/16 at 01:34; Status DC Iohexol (Omnipaque 300 Mg/ml) 50 ml STK-MED ONCE .ROUTE ; Start 10/29/16 at 13:20 ; Stop 10/29/16 at 13:45; Status DC Lidocaine HCl 100 mg 100 mg STK-MED ONCE .ROUTE ; Start 10/29/16 at 14:11; Stop 10/29/16 at 14:12; Status DC Propofol (Diprivan) 20 ml @ As Directed STK-MED ONCE IV ; Start 10/29/16 at 14:11 ; Stop 10/29/16 at 14:12; Status DC Fentanyl Citrate (Fentanyl 2ml Vial) 100 mcg STK-MED ONCE .ROUTE ; Start at 14:11; Stop 10/29/16 at 14:12; Status DC Morphine Sulfate 4 mg 1X PACU PRN IV MODERATE PAIN Last administered on t 15:12; Start 10/29/16 at 15:15 Nitroglycerin (Nitrostat) 0.4 mg STK-MED ONCE SL ; Start 10/29/16 at 15:35; Stop 10/29/16 at 15:36; Status DC Nitroglycerin (Nitrostat) 0.4 mg PRN Q5MIN PRN SL CHEST PAIN Last administered on 10/29/16 15:53; Start 10/29/16 at 15:45 Metoprolol Tartrate (Lopressor) 2.5 mg PRN Q6HRS PRN IVP HTN; Start 10/29/16 at 17:00 Multi-Ingredient Mouthwash/Gargle 15 ml 15 ml 1X ONCE SWSW ; Start 10/29/16 at 17:15; Stop 10/29/16 at 17:16; Status DC Levofloxacin/ Dextrose (LEVAQUIN 250mg PREMIX) 50 ml @ 50 mls/hr 1X ONCE IV ; Start 10/31/16 at 10:00; Stop 10/31/16 at 10:00; Status DC Pantoprazole Sodium (Protonix Vial) 40 mg DAILYAC IVP Last administered on 08:59; Start 10/30/16 at 11:30 Iohexol 50 ml 50 ml STK-MED ONCE .ROUTE Last administered on 10/30/16 15:13; Start 10/30/16 at 14:56; Stop 10/30/16 at 14:57; Status DC Ceftriaxone Sodium 1 gm/ Sodium Chloride 50 ml @ 100 mls/hr Q24H IV Last administered on 10/30/16 17:11; Start 10/30/16 at 16:00 Ceftriaxone Sodium (Rocephin 1gm Ivpb For Omni) 50 ml @ As Directed STK-MED ONCE IV ; Start 10/30/16 at 17:03; Stop 10/30/16 at 17:04; Status DC Phenylephrine HCl 1 mg STK-MED ONCE IV ; Start 10/30/16 at 17:20; Stop 10/30/16 at 17:21; Status DC Ondansetron HCl (Zofran) 4 mg STK-MED ONCE .ROUTE ; Start 10/30/16 at 17:50; Stop 10/30/16 at 17:51; Status DC Dexamethasone Sodium Phosphate (Decadron) 20 mg STK-MED ONCE .ROUTE ; Start 10/30 at 17:50; Stop 10/30/16 at 17:51; Status DC Sevoflurane (Ultane) 60 ml STK-MED ONCE IH ; Start 10/30/16 at 17:52; Stop at 17:53; Status DC Sevoflurane (Ultane) 30 ml STK-MED ONCE IH ; Start 10/30/16 at 17:52; Stop at 17:53; Status DC Fentanyl Citrate (Fentanyl 2ml Vial) 25 mcg PRN Q5MIN PRN IV Acute Pain; Start 10/30/16 at 18:15; Stop 10/31/16 at 23:00 Fentanyl Citrate (Fentanyl 2ml Vial) 50 mcg PRN Q5MIN PRN IV Acute Pain Last administered on 10/30/16t 18:37; Start 10/30/16 at 18:15; Stop 10/31/16 at 23:00 Morphine Sulfate 2 mg PRN Q10MIN PRN IV Mild Pain; Start 10/30/16 at 18:15; Stop 10/31/16 at 23:00 Meperidine HCl (Demerol) 12.5 mg PRN Q5MIN PRN IV SHIVERING; Start 10/30/16 at 18:15; Stop 10/31/16 at 23:00 Prochlorperazine Edisylate (Compazine) 5 mg PRN Q6HRS PRN IV Nausea/Vomiting, 1st Choice; Start 10/30/16 at 18:15; Stop 10/31/16 at 23:00 Ondansetron HCl (Zofran) 4 mg PRN Q6HRS PRN IV Nausea, 2nd Choice; Start at 18:15; Stop 10/31/16 at 23:00 Midazolam HCl (Versed) 2 mg PRN 1X PRN IV PRIOR TO PROCEDURE; Start 10/30/16 at 18:15; Stop 10/31/16 at 18:14; Status DC Fentanyl Citrate (Fentanyl 2ml Vial) 25 mcg PRN Q5MIN PRN IV X 2 DOSES FOR PAIN ; Start 10/30/16 at 18:15; Stop 10/31/16 at 18:14; Status DC Fentanyl Citrate 50 mcg 50 mcg PRN Q5MIN PRN IV X 2 DOSES FOR PAIN; Start at 18:15; Stop 10/31/16 at 18:14; Status DC Sodium Chloride (Iv Sodium Chloride 0.9% 1000ml Bag) 1,000 ml @ 125 mls/hr Q8H IV ; Start 10/30/16 at 18:03; Stop 10/31/16 at 06:02; Status DC Active Scripts Active Reported No Known Medications Prior To Admisstion (Info) Each 1 Each Vitals/I & O Vital Sign - Last 24 Hours 10/30/16 10/30/16 10/30/16 10/30/16 18:28 18:37 19:00 19:15 Temp 97.7 97.7 Pulse 66 73 69 Resp 18 18 18 18 B/P 151/63 124/55 132/52 Pulse Ox 97 97 93 92 O2 Delivery Room Air Room Air Room Air Room Air 10/30/16 10/30/16 10/30/16 10/30/16 19:30 19:45 20:15 20:30 Pulse 65 64 74 Resp 18 18 B/P 144/52 133/55 144/60 Pulse Ox 93 95 95 O2 Delivery Room Air Room Air Room Air Room Air 10/30/16 10/30/16 10/31/16 10/31/16 20:45 21:45 03:00 07:00 Temp 97.8 96.6 97.8 96.6 Pulse 92 70 76 79 Resp 16 18 B/P 149/70 140/66 121/55 162/60 Pulse Ox 93 97 95 96 O2 Delivery Room Air Room Air Room Air Room Air 10/31/16 10/31/16 10/31/16 08:19 11:00 15:00 Temp 97.5 98.2 97.5 98.2 Pulse 58 82 Resp 18 18 B/P 126/64 170/75 Pulse Ox 95 95 O2 Delivery Room Air Room Air Room Air Intake and Output 10/30/16 10/30/16 10/31/16 15:00 23:00 07:00 Intake Total 975 ml 700 ml 500 ml Output Total 0 ml Balance 975 ml 700 ml 500 ml SHANICE PUCKETT MD Oct 31, 2016 18:22
[2016-10-31 19:27] VITALS: BP 150/67
[2016-10-31 23:30] VITALS: BP 140/54
[2016-11-01] MEDS: SODIUM BICARBONATE VIAL 100 MEQ in IV DEXTROSE 5% 1,000 ML IV SCH (03:00)
[2016-11-01 03:29] VITALS: BP 154/69
[2016-11-01 06:13] LABS: ALBUMIN 2.8 g/dL (3.4-5.0); CALCIUM 8.1 mg/dL (8.5-10.1); CREATININE 5.2 mg/dL (0.6-1.0); PHOSPHORUS 3.8 mg/dL (2.6-4.7); POTASSIUM 3.3 mmol/L (3.5-5.1)
[2016-11-01 07:00] VITALS: BP 153/54
[2016-11-01] MEDS: PANTOPRAZOLE IV PUSH 40 MG VIAL. IVP SCH (07:30)
[2016-11-01] MEDS ORDERED: POTASSIUM CHLORIDE 20 MEQ TABLET.ER. PO ONE ×2 (10:45→11:00)
--- NOTE | 2016-11-01 10:46 | PDOC ---
PROGRESS NOTES Subjective Subjective Patient feeling better. Creatine still very high but improving. good U.O. Objective Objective Vital Signs Date Time Temp Pulse Resp B/P Pulse Ox O2 Delivery O2 Flow Rate FiO2 11/01/16 07:00 97.7 54 18 153/54 95 Room Air 97.7 10/30/16 17:43 10 Intake and Output 11/01/16 07:00 Intake Total 300 ml Output Total 1250 ml Balance -950 ml Intake Oral 300 ml Output Urine Total 1250 ml Physical Exam Abdomen: Normal bowel sounds Heart: Regular rate Extremities: No edema General: Alert Lungs: Clear to auscultation Assessment Assessment Problems Medical Problems: (1) Chest pain Status: Acute (2) Flank pain Status: Acute (3) Stone, kidney Status: Acute (4) UTI (urinary tract infection) Status: Acute Acute on chronic renal failure Renal stone with hydronephrosis s/p stent Low K+, high Cr. Mod protein malnutrition Plan Plan of Care Supplement K+ monitor CR Home in AM change to PO meds Comment Review of Relevant I have reviewed the following items rehan (where applicable) has been applied. Labs Laboratory Tests Test 10/31/16 05:30 11/01/16 05:28 White Blood Count 2.6x10^3/uL (4.0-11.0) Red Blood Count 3.71x10^6/uL (3.50-5.40) Hemoglobin 10.5g/dL (12.0-15.5) Hematocrit 31.7% (36.0-47.0) Mean Corpuscular Volume 86fL (79-100) Mean Corpuscular Hemoglobin 28pg (25-35) Mean Corpuscular Hemoglobin Concent 33g/dL (31-37) Red Cell Distribution Width 14.1% (11.5-14.5) Platelet Count 123x10^3/uL (140-400) Sodium Level 141mmol/L (136-145) 142mmol/L (136-145) Potassium Level 3.7mmol/L (3.5-5.1) 3.3mmol/L (3.5-5.1) Chloride Level 110mmol/L (98-107) 107mmol/L (98-107) Carbon Dioxide Level 19mmol/L (21-32) 26mmol/L (21-32) Anion Gap 12 (6-14) 9 (6-14) Blood Urea Nitrogen 61mg/dL (7-20) 56mg/dL (7-20) Creatinine 6.3mg/dL (0.6-1.0) 5.2mg/dL (0.6-1.0) Estimated GFR (Cockcroft-Gault) 6.4 8.0 Glucose Level 202mg/dL (70-99) 157mg/dL (70-99) Calcium Level 8.0mg/dL (8.5-10.1) 8.1mg/dL (8.5-10.1) Phosphorus Level 3.5mg/dL (2.6-4.7) 3.8mg/dL (2.6-4.7) Magnesium Level 2.1mg/dL (1.8-2.4) 1.9mg/dL (1.8-2.4) Albumin 2.6g/dL (3.4-5.0) 2.8g/dL (3.4-5.0) Laboratory Tests Test 11/01/16 05:28 Sodium Level 142mmol/L (136-145) Potassium Level 3.3mmol/L (3.5-5.1) Chloride Level 107mmol/L (98-107) Carbon Dioxide Level 26mmol/L (21-32) Anion Gap 9 (6-14) Blood Urea Nitrogen 56mg/dL (7-20) Creatinine 5.2mg/dL (0.6-1.0) Estimated GFR (Cockcroft-Gault) 8.0 Glucose Level 157mg/dL (70-99) Calcium Level 8.1mg/dL (8.5-10.1) Phosphorus Level 3.8mg/dL (2.6-4.7) Magnesium Level 1.9mg/dL (1.8-2.4) Albumin 2.8g/dL (3.4-5.0) Microbiology 10/28/16 Blood Culture - Preliminary, Resulted NO GROWTH AFTER 3 DAYS 10/28/16 Urine Culture - Final, Complete 10/28/16 Urine Culture Result 1 (COLE) - Final, Complete 10/28/16 Antimicrobic Susceptibility - Final, Complete Medications Current Medications Fentanyl Citrate 50 mcg 50 mcg 1X ONCE IV Last administered on 10/28/16t 19:18 ; Start 4/4/17 at 19:00; Stop 10/28/16 at 19:05; Status DC Sodium Chloride 500 ml @ 500 mls/hr 1X ONCE IV Last administered on 10/28/16 19:00; Start 10/28/16 at 19:00; Stop 10/28/16 at 19:59; Status DC Ceftriaxone Sodium 50 ml @ 100 mls/hr 1X ONCE IV Last administered on 21:21; Start 10/28/16 at 20:30; Stop 10/28/16 at 20:59; Status DC Sodium Chloride (Iv Sodium Chloride 0.9% 500ml Bag) 500 ml @ 500 mls/hr 1X ONCE IV Last administered on 10/28/16 21:22; Start 10/28/16 at 20:45; Stop at 21:44; Status DC Ondansetron HCl 4 mg 4 mg PRN Q8HRS PRN IV NAUSEA/VOMITING Last administered on 10/29/16 13:21; Start 10/28/16 at 21:00; Stop 10/29/16 at 20:59; Status DC Sodium Chloride (Iv Sodium Chloride 0.9% 1000ml Bag) 1,000 ml @ 100 mls/hr Q10H IV Last administered on 10/28/16 22:00; Start 10/28/16 at 21:15; Stop at 21:14; Status DC Fentanyl Citrate 50 mcg 50 mcg PRN Q2HR PRN IV SEVERE PAIN Last administered on 10/29/16 13:07; Start 10/28/16 at 21:45 Sodium Bicarbonate 2 meq/ Dextrose 1,002 ml @ 100 mls/hr Q10H2M IV ; Start 10/29 at 07:45; Stop 10/29/16 at 07:45; Status DC Sodium Bicarbonate 100 meq/Dextrose 1,100 ml @ 100 mls/hr Q11H IV Last administered on 11/01/16 03:00; Start 10/29/16 at 09:00 Levofloxacin/ Dextrose 50 ml @ 50 mls/hr 1X ONCE IV Last administered on 10:00; Start 10/29/16 at 10:00; Stop 10/29/16 at 10:59; Status DC Magnesium Sulfate/ Dextrose (Magnesium Sulfate PREMIX 2GM) 50 ml @ 25 mls/hr PRN DAILY PRN IV for Mag < 1.7 on am labs Last administered on 10/30/16t 10:00; Start 10/29/16 at 11:30 Ondansetron HCl (Zofran) 4 mg PRN Q6HRS PRN IV NAUSEA/VOMITING; Start 10/29/16 at 14:00 Fentanyl Citrate (Fentanyl 2ml Vial) 25 mcg PRN Q5MIN PRN IV Acute Pain; Start 10/29/16 at 13:45; Stop 10/30/16 at 13:44; Status DC Fentanyl Citrate (Fentanyl 2ml Vial) 50 mcg PRN Q5MIN PRN IV Acute Pain; Start 10/29/16 at 13:45; Stop 10/30/16 at 13:44; Status DC Morphine Sulfate 1 mg PRN Q10MIN PRN IV Mild Pain; Start 10/29/16 at 13:45; Stop 10/30/16 at 13:44; Status DC Morphine Sulfate 2 mg 2 mg PRN Q10MIN PRN IV Moderate Pain; Start 10/29/16 at 13 :45; Stop 10/30/16 at 13:44; Status DC Lactated Ringer's (Iv Lactated Ringers) 1,000 ml @ 50 mls/hr Q20H IV ; Start at 13:35; Stop 10/30/16 at 01:34; Status DC Iohexol (Omnipaque 300 Mg/ml) 50 ml STK-MED ONCE .ROUTE ; Start 10/29/16 at 13:20 ; Stop 10/29/16 at 13:45; Status DC Lidocaine HCl 100 mg 100 mg STK-MED ONCE .ROUTE ; Start 10/29/16 at 14:11; Stop 10/29/16 at 14:12; Status DC Propofol (Diprivan) 20 ml @ As Directed STK-MED ONCE IV ; Start 10/29/16 at 14:11 ; Stop 10/29/16 at 14:12; Status DC Fentanyl Citrate (Fentanyl 2ml Vial) 100 mcg STK-MED ONCE .ROUTE ; Start at 14:11; Stop 10/29/16 at 14:12; Status DC Morphine Sulfate 4 mg 1X PACU PRN IV MODERATE PAIN Last administered on t 15:12; Start 10/29/16 at 15:15 Nitroglycerin (Nitrostat) 0.4 mg STK-MED ONCE SL ; Start 10/29/16 at 15:35; Stop 10/29/16 at 15:36; Status DC Nitroglycerin (Nitrostat) 0.4 mg PRN Q5MIN PRN SL CHEST PAIN Last administered on 10/29/16 15:53; Start 10/29/16 at 15:45 Metoprolol Tartrate (Lopressor) 2.5 mg PRN Q6HRS PRN IVP HTN; Start 10/29/16 at 17:00 Multi-Ingredient Mouthwash/Gargle 15 ml 15 ml 1X ONCE SWSW ; Start 10/29/16 at 17:15; Stop 10/29/16 at 17:16; Status DC Levofloxacin/ Dextrose (LEVAQUIN 250mg PREMIX) 50 ml @ 50 mls/hr 1X ONCE IV ; Start 10/31/16 at 10:00; Stop 10/31/16 at 10:00; Status DC Pantoprazole Sodium (Protonix Vial) 40 mg DAILYAC IVP Last administered on 08:59; Start 10/30/16 at 11:30 Iohexol 50 ml 50 ml STK-MED ONCE .ROUTE Last administered on 10/30/16 15:13; Start 10/30/16 at 14:56; Stop 10/30/16 at 14:57; Status DC Ceftriaxone Sodium 1 gm/ Sodium Chloride 50 ml @ 100 mls/hr Q24H IV Last administered on 10/30/16 17:11; Start 10/30/16 at 16:00 Ceftriaxone Sodium (Rocephin 1gm Ivpb For Omni) 50 ml @ As Directed STK-MED ONCE IV ; Start 10/30/16 at 17:03; Stop 10/30/16 at 17:04; Status DC Phenylephrine HCl 1 mg STK-MED ONCE IV ; Start 10/30/16 at 17:20; Stop 10/30/16 at 17:21; Status DC Ondansetron HCl (Zofran) 4 mg STK-MED ONCE .ROUTE ; Start 10/30/16 at 17:50; Stop 10/30/16 at 17:51; Status DC Dexamethasone Sodium Phosphate (Decadron) 20 mg STK-MED ONCE .ROUTE ; Start 10/30 at 17:50; Stop 10/30/16 at 17:51; Status DC Sevoflurane (Ultane) 60 ml STK-MED ONCE IH ; Start 10/30/16 at 17:52; Stop at 17:53; Status DC Sevoflurane (Ultane) 30 ml STK-MED ONCE IH ; Start 10/30/16 at 17:52; Stop at 17:53; Status DC Fentanyl Citrate (Fentanyl 2ml Vial) 25 mcg PRN Q5MIN PRN IV Acute Pain; Start 10/30/16 at 18:15; Stop 10/31/16 at 23:00; Status DC Fentanyl Citrate (Fentanyl 2ml Vial) 50 mcg PRN Q5MIN PRN IV Acute Pain Last administered on 10/30/16t 18:37; Start 10/30/16 at 18:15; Stop 10/31/16 at 23:00; Status DC Morphine Sulfate 2 mg PRN Q10MIN PRN IV Mild Pain; Start 10/30/16 at 18:15; Stop 10/31/16 at 23:00; Status DC Meperidine HCl (Demerol) 12.5 mg PRN Q5MIN PRN IV SHIVERING; Start 10/30/16 at 18:15; Stop 10/31/16 at 23:00; Status DC Prochlorperazine Edisylate (Compazine) 5 mg PRN Q6HRS PRN IV Nausea/Vomiting, 1st Choice; Start 10/30/16 at 18:15; Stop 10/31/16 at 23:00; Status DC Ondansetron HCl (Zofran) 4 mg PRN Q6HRS PRN IV Nausea, 2nd Choice; Start at 18:15; Stop 10/31/16 at 23:00; Status DC Midazolam HCl (Versed) 2 mg PRN 1X PRN IV PRIOR TO PROCEDURE; Start 10/30/16 at 18:15; Stop 10/31/16 at 18:14; Status DC Fentanyl Citrate (Fentanyl 2ml Vial) 25 mcg PRN Q5MIN PRN IV X 2 DOSES FOR PAIN ; Start 10/30/16 at 18:15; Stop 10/31/16 at 18:14; Status DC Fentanyl Citrate 50 mcg 50 mcg PRN Q5MIN PRN IV X 2 DOSES FOR PAIN; Start at 18:15; Stop 10/31/16 at 18:14; Status DC Sodium Chloride (Iv Sodium Chloride 0.9% 1000ml Bag) 1,000 ml @ 125 mls/hr Q8H IV ; Start 10/30/16 at 18:03; Stop 10/31/16 at 06:02; Status DC Active Scripts Active Reported No Known Medications Prior To Admisstion (Info) Each 1 Each Vitals/I & O Vital Sign - Last 24 Hours 10/31/16 10/31/16 10/31/16 10/31/16 11:00 15:00 19:27 20:00 Temp 97.5 98.2 98.3 97.5 98.2 98.3 Pulse 58 82 87 Resp B/P 126/64 170/75 150/67 Pulse Ox 95 95 95 O2 Delivery Room Air Room Air Room Air Room Air 10/31/16 11/01/16 11/01/16 23:30 03:29 07:00 Temp 98.3 99.0 97.7 98.3 99.0 97.7 Pulse 67 76 54 Resp B/P 140/54 154/69 153/54 Pulse Ox 94 91 95 O2 Delivery Room Air Room Air Room Air Intake and Output 10/31/16 10/31/16 11/01/16 15:00 23:00 07:00 Intake Total 300 ml Output Total 600 ml 650 ml Balance -600 ml -650 ml 300 ml JANETT HARRIS MD Nov 01, 2016 10:46
[2016-11-01 11:00] VITALS: BP 147/53
[2016-11-01 15:00] VITALS: BP 150/52
--- NOTE | 2016-11-01 16:45 | PDOC ---
Provider Note Provider Note RENAL F/U : RONNIE. Subjective No active c/o reported. Eager to gohome. Vitals: Stable. Afebrile. ROS : No new c/o or issues. General: No distreess. Awake. HEENT: Neck supple. No JVD. Lungs: Decreased bases.No rales. Cardiovascular: S1, S2 Abdomen: Soft, Non-tender, Other (no mass) Extremities: No Edema, Other Skin: Warm Labs, I/Os, meds : reviewed. A/P : ARF OBSTRUCTIVE UROPATHY. HTN w CKD CKD stage III/IV Cr better CPM. JACQUELINE TRUJILLO MD Nov 01, 2016 16:45
[2016-11-02] MEDS ORDERED: PANTOPRAZOLE 40 MG TABLET.DR. PO SCH (07:30)
== END 2016-11-01 18:00 | disposition home or self-care (01) | DRG 872 ==
LOC: ER 17:41 → 5 NORTH 20:25 → 2 SOUTH 10-29 16:31 → 4 NORTH 10-30 19:03
PROVIDERS: ADMIT Family Medicine; ATTEND Family Medicine
PROC: BT1D1ZZ Fluoroscopy of Right Kidney, Ureter and Bladder using Low Osmolar Contrast (ICD-10-PCS; 2016-10-30)
PROC: 0T768DZ Dilation of Right Ureter with Intraluminal Device, Via Natural or Artificial Opening Endoscopic (ICD-10-PCS; principal; 2016-10-30 15:30)
DX: A41.9 Sepsis, unspecified organism (principal); N17.9 Acute kidney failure, unspecified; N39.0 Urinary tract infection, site not specified; E87.2 Acidosis; E44.0 Moderate protein-calorie malnutrition; I13.0 Hypertensive heart and chronic kidney disease with heart failure and stage 1 through stage 4 chronic kidney disease, or unspecified chronic kidney disease; I50.30 Unspecified diastolic (congestive) heart failure; N20.2 Calculus of kidney with calculus of ureter; N18.4 Chronic kidney disease, stage 4 (severe); D64.9 Anemia, unspecified; D69.6 Thrombocytopenia, unspecified; E21.3 Hyperparathyroidism, unspecified; Z68.34 Body mass index [BMI] 34.0-34.9, adult; K21.9 Gastro-esophageal reflux disease without esophagitis; Z80.3 Family history of malignant neoplasm of breast; Z82.49 Family history of ischemic heart disease and other diseases of the circulatory system; Z90.49 Acquired absence of other specified parts of digestive tract; Z98.84 Bariatric surgery status; Z79.899 Other long term (current) drug therapy; Z88.8 Allergy status to other drugs, medicaments and biological substances
CPT/HCPCS: 36415; 74000; 74176; 74420; 80048; 80061; 80069; 81001; 82553; 82728; 83540; 83550; 83605; 83735; 83970; 84484; 85018; 85027; 85045; 87040; 87086; 87186; 93005; 93306; 96361; 96374; 96375; C1769; C2617; C9113; J0690; J0696; J1100; J1956; J2270; J2370; J2405; J2704; J3010; J7030; J7040; J7060; Q9967; 99285-25

== ENCOUNTER → 2016-12-01 | Outpatient (CLI) | payer MEDICARE, MEDICAID ==
[2016-11-01 15:00] VITALS: BP 150/52
--- NOTE | 2016-12-01 10:58 | RAD ---
Indication: Kidney stone and stent placement. Patient lithotripsy one week ago. Time of exam 10:48 AM Correlation is made with prior study from 10/31/2016. Right double-J nephroureteral stent remains in place. Numerous calculi are identified overlying both kidneys. There is a small calculus noted along the proximal portion of the stent. This is smaller in size when compared with the examination one month earlier. There appears to be a greater stone burden overlying the mid and lower pole of the right kidney when compared with prior exam. Its uncertain if some of these calcifications are overlying the right kidney versus within the kidney. Calcific densities in the pelvis are stable. Bowel gas pattern shows moderate stool in the left colon. Impression: Right-sided stent and bilateral renal calculi, as described.
== END | disposition home or self-care (01) ==
LOC: RAD 10:09
PROVIDERS: ATTEND Nurse Practitioner Occupational Health
DX: N20.0 Calculus of kidney (principal)
CPT/HCPCS: 74000

== ENCOUNTER 2017-08-22 14:48 | Emergency (ER) | payer MEDICARE, MEDICAID ==
[2017-08-22] MEDS: ONDANSETRON ODT 4 MG TAB.RAPDIS. PO (15:40)
[2017-08-22] MEDS: PHENAZOPYRIDINE 200 MG TABLET. PO (15:40)
[2017-08-22 15:54] LABS: BILIRUBIN,URINE NEGATIVE (NEG); CLARITY,URINE CLEAR; COLOR,URINE YELLOW; GLUCOSE,URINE NEGATIVE (NEG); NITRITE,URINE NEGATIVE (NEG); PH,URINE 5.5; PROTEIN,URINE NEGATIVE (NEG-TRACE); UROBILINOGEN,URINE 0.2 mg/dL (0.2 mg/dL)
[2017-08-22 16:07] LABS: BACTERIA,URINE FEW /HPF (0-FEW); RBC,URINE OCC /HPF (0-2); SQUAMOUS EPITHELIAL CELL,UR FEW /LPF
[2017-08-22 16:08] LABS: ADD MAN DIFF? NO
[2017-08-22 16:14] LABS: BASO % 0 % (0-3); EOS # 0.1 x10^3/uL (0.0-0.7); EOS % 1 % (0-3); HEMOGLOBIN 11.5 g/dL (12.0-15.5); LYMPH # 0.6 x10^3/uL (1.0-4.8); LYMPH % 10 % (24-48); MEAN CORPUSCULAR HEMOGLOBIN 28 pg (25-35); MEAN CORPUSCULAR HGB CONC 33 g/dL (31-37); MEAN CORPUSCULAR VOLUME 85 fL (79-100); MONO # 0.9 x10^3/uL (0.0-1.1); MONO % 16 % (0-9); NEUT # 4.3 x10^3uL (1.8-7.7); NEUT % 73 % (31-73); PLATELET COUNT 115 x10^3/uL (140-400); RED BLOOD COUNT 4.14 x10^6/uL (3.50-5.40); RED CELL DISTRIBUTION WIDTH 14.9 % (11.5-14.5); WHITE BLOOD COUNT 5.9 x10^3/uL (4.0-11.0)
[2017-08-22 17:02] LABS: ANION GAP 12 (6-14); BLOOD UREA NITROGEN 75 mg/dL (7-20); BUN/CREATININE RATIO 16 (6-20); CALCIUM 8.3 mg/dL (8.5-10.1); CARBON DIOXIDE 18 mmol/L (21-32); CHLORIDE 103 mmol/L (98-107); CREATININE 4.8 mg/dL (0.6-1.0); GFR 8.8; GLUCOSE 126 mg/dL (70-99); POTASSIUM 4.2 mmol/L (3.5-5.1); SODIUM 133 mmol/L (136-145)
[2017-08-22 17:08] LABS: ALBUMIN 2.9 g/dL (3.4-5.0); ALBUMIN/GLOBULIN RATIO 0.7 (1.0-1.7); ALK PHOS 75 U/L (46-116); ALT (SGPT) 17 U/L (14-59); AST (SGOT) 15 U/L (15-37); C-REACTIVE PROTEIN 114.8 mg/L (0-3.3); TOTAL BILIRUBIN 0.4 mg/dL (0.2-1.0); TOTAL PROTEIN 6.9 g/dL (6.4-8.2)
== END 2017-08-22 19:32 | disposition home or self-care (01) ==
LOC: ER 14:48 → ED HOLD 17:30
DX: T83.192A Other mechanical complication of indwelling ureteral stent, initial encounter (principal); I12.9 Hypertensive chronic kidney disease with stage 1 through stage 4 chronic kidney disease, or unspecified chronic kidney disease; N18.9 Chronic kidney disease, unspecified; Z87.442 Personal history of urinary calculi; Z87.440 Personal history of urinary (tract) infections; Z90.49 Acquired absence of other specified parts of digestive tract; Z88.5 Allergy status to narcotic agent; Y84.6 Urinary catheterization as the cause of abnormal reaction of the patient, or of later complication, without mention of misadventure at the time of the procedure; Y92.89 Other specified places as the place of occurrence of the external cause
CPT/HCPCS: 36415; 51701; 74176; 80053; 81001; 85025; 86140; 87040; 87086; 87186; 99285-25; Q0162

== ENCOUNTER 2017-08-25 19:23 | Emergency (ER) | payer MEDICARE, MEDICAID ==
[2017-08-25] MEDS: MORPHINE SULFATE 4 MG/ML DISP.SYRIN. IM ×2 (20:22)
[2017-08-25] MEDS: CEPHALEXIN 250 MG CAPSULE. PO ×2 (20:41)
[2017-08-25 20:47] LABS: BILIRUBIN,URINE NEGATIVE (NEG); CLARITY,URINE CLEAR; COLOR,URINE ORANGE; GLUCOSE,URINE NEGATIVE (NEG); NITRITE,URINE POSITIVE (NEG); PROTEIN,URINE NEGATIVE (NEG-TRACE)
[2017-08-25 21:13] LABS: BACTERIA,URINE FEW /HPF (0-FEW); RBC,URINE 0 /HPF (0-2); SQUAMOUS EPITHELIAL CELL,UR OCC /LPF; WBC,URINE 20-40 /HPF (0-4)
== END 2017-08-25 21:10 | disposition home or self-care (01) ==
LOC: ER 19:23
DX: T83.122A Displacement of indwelling ureteral stent, initial encounter (principal); Z87.442 Personal history of urinary calculi; I12.9 Hypertensive chronic kidney disease with stage 1 through stage 4 chronic kidney disease, or unspecified chronic kidney disease; N18.9 Chronic kidney disease, unspecified; Y84.8 Other medical procedures as the cause of abnormal reaction of the patient, or of later complication, without mention of misadventure at the time of the procedure; Y92.89 Other specified places as the place of occurrence of the external cause
CPT/HCPCS: 81001; 87086; 96372; 99284-25; J2270

== ENCOUNTER 2021-09-24 15:09 | Inpatient (IN) | payer MEDICARE, MEDICAID ==
[~2021-09-24] VITALS: Ht 149.9 cm; Wt 67.9 kg
[~2021-09-24 15:09] MED LIST changes: +CEPH-264 PO; +METO-239 PO; -METO25TA9 PO; -MULT1TAB90 PO; +MULT1TAB92 PO
[2021-09-24] MEDS ORDERED: IV NORMAL SALINE 1000ML BAG 1,000 ML IV ONE (16:15)
[2021-09-24] MEDS ORDERED: FAMOTIDINE 20 MG/2 ML VIAL IVP ONE (16:15)
[2021-09-24] MEDS ORDERED: ONDANSETRON PF 4 MG/2 ML VIAL. IVP ONE (16:15)
[2021-09-24 16:21] LABS: BILIRUBIN,URINE NEGATIVE (NEG); CLARITY,URINE HAZY; COLOR,URINE YELLOW
[2021-09-24 16:22] LABS: NITRITE,URINE NEGATIVE (NEG); PH,URINE 6.5 (<5.0-8.0); PROTEIN,URINE TRACE mg/dL (NEG-TRACE); UROBILINOGEN,URINE 0.2 mg/dL (0.2 mg/dL)
[2021-09-24 16:24] LABS: BACTERIA,URINE MANY /HPF (0-FEW); WBC,URINE TNTC /HPF (0-4)
[2021-09-24 16:29] LABS: BASO % 1 % (0-3); EOS % 1 % (0-3); HEMATOCRIT 37.1 % (36.0-47.0); LYMPH # 0.8 x10^3/uL (1.0-4.8); LYMPH % 13 % (24-48); MEAN CORPUSCULAR HEMOGLOBIN 29 pg (25-35); MEAN CORPUSCULAR HGB CONC 32 g/dL (31-37); MEAN CORPUSCULAR VOLUME 89 fL (79-100); MONO # 0.6 x10^3/uL (0.0-1.1); MONO % 10 % (0-9); NEUT # 4.7 x10^3/uL (1.8-7.7); NEUT % 76 % (31-73); PLATELET COUNT 155 x10^3/uL (140-400); RED BLOOD COUNT 4.18 x10^6/uL (3.50-5.40); RED CELL DISTRIBUTION WIDTH 15.4 % (11.5-14.5); WHITE BLOOD COUNT 6.2 x10^3/uL (4.0-11.0)
--- NOTE | 2021-09-24 16:31 | RAD ---
Axial noncontrast CT imaging the abdomen pelvis was obtained. Coronal and sagittal reformats are avai lable. COMPARISON: 08/22/2017. INDICATION: Abdominal pain and diarrhea. FINDINGS: There is a small right basilar effusion. Left lung bases clear. Heart is enlarged. Liver is multiple hypodensities which are likely cysts. Liver has a relatively nodular contour to it. It is of the upper limits of normal. Stable atrophy of the left kidney. There is a new large calculu s in the left collecting system. No significant hydronephrosis or hydroureter is identified. Right ki dney is stable in appearance. Limited evaluation of the other solid organs without intravenous contra st. Patient status post cholecystectomy. Pancreas grossly unremarkable in appearance. The stomach, small and large bowel are nondistended. There is pancolonic diverticulosis. Obvious bronson l wall thickening is seen. There is diffuse ascites. The uterus is atrophic. There is subcutaneous anasarca. Abdominal aorta is nonaneurysmal. IMPRESSION: 1. Limited evaluation without intravenous contrast. There is diffuse ascites in the abdomen as well a s a trace right basilar effusion. 2. Liver appears shrunken and somewhat nodular suggestive of cirrhosis. Correlate with history. 3. Kidneys are stable in appearance with significant atrophy of the kidney. There is a new large left renal pelvis calculus. No hydronephrosis or hydroureter is identified. 4. New diffuse subcutaneous anasarca. Exposure: One or more of the following individualized dose reduction techniques were utilized for thi s examination: 1. Automated exposure control 2. Adjustment of the mA and/or kV according to patient size 3. Use of iterative reconstruction technique Electronically signed by: Edgar Ho MD (09/24/2021 4:29 PM) [facility]
[2021-09-24 16:37] LABS: CALCIUM 7.8 mg/dL (8.5-10.1); CREATININE 2.1 mg/dL (0.6-1.0); GFR 22.6; POTASSIUM 3.4 mmol/L (3.5-5.1)
[2021-09-24 16:42] LABS: ALBUMIN 3.1 g/dL (3.4-5.0); ALBUMIN/GLOBULIN RATIO 0.8 (1.0-1.7); MAGNESIUM 1.6 mg/dL (1.8-2.4); TOTAL BILIRUBIN 0.6 mg/dL (0.2-1.0); TOTAL PROTEIN 6.8 g/dL (6.4-8.2)
[2021-09-24 16:47] LABS: PROTHROMBIN TIME PATIENT 15.6 SEC (11.7-14.0)
[2021-09-24 17:11] LABS: INFLUENZA A PATIENT NEGATIVE (NEGATIVE); INFLUENZA B PATIENT NEGATIVE (NEGATIVE)
[2021-09-24] MEDS ORDERED: cefTRIAXone IV Push 1 GM VIAL. IVP ONE (17:30)
[2021-09-24] MEDS ORDERED: MORPHINE SULFATE 2 MG/ML INJ. IVP ONE (17:30)
--- NOTE | 2021-09-24 17:40 | PDOC1 ---
History and Physical Date of Admission Date of Admission DATE: 09/24/21 TIME: 17:32 Identification/Chief Complaint Chief Complaint Diarrhea, abdominal pain Source Source: Patient History of Present Illness History of Present Illness Ms Powers is an 81yo female with PMHx obesity s/p intestinal bypass x2 (), nephrolithiasis, who comes the ED accompanied by family complaining of abdominal distention and watery diarrhea and diffuse abdominal pain. She does note she has chronic diarrhea but over the last week has become much worse no she can control it and notes cramping of her belly for the past week as well. She does note historically she has had a gastrointestinal bypass surgery previously. She also notes her stools have been oily and floating. She has had such fecal urgency that she has had some accidents and chairs in bed at home. She did become a little weak and notes that she has lost around 40 pounds likely over the last year. She has not seen a doctor in the last 2 years. She does not think she is ever had a screening colonoscopy or seen a telesales representative before. Labs with WBC 6.2, Hb 12, platelets 155, NA 144, K3.4, BUN 12, CR 2.1, glucose 119, calcium 7.8, magnesium 1.6, bilirubin 0.6, AST 13, ALT 17, alk phos 80, albumin 3.1, lipase 103, NT proBNP 862, HS troponin 9, lactic acid 1.9, rapid COVID-19 rapid influenza both negative, urinalysis with WBCs large leuk esterase small blood. CT abdomen pelvis reveals small right pleural effusion and liver with multiple hypodensities and nodularity. Left renal atrophy and left renal pelvic nonobstructing calculus noted, subcutaneous anasarca. Past Medical History Cardiovascular: HTN Pulmonary: No pertinent hx GI: GERD Heme/Onc: No pertinent hx Hepatobiliary: No pertinent hx Psych: No pertinent hx Musculoskeletal: Osteoarthritis Rheumatologic: No pertinent hx Infectious disease: No pertinent hx Renal/: Chronic renal insuff, UTI, Other Endocrine: No pertinent hx Past Surgical History Past Surgical History Appendectomy Cholecystectomy Tonsillectomy Renal stents, Intestinal bypass X2 Past Surgical History: Appendectomy, Cholecystectomy, Tonsillectomy, Colon Resection Family History Family History: Cancer Social History Smoke: No ALCOHOL: rare Drugs: None Current Medications Current Medications Current Medications Sodium Chloride 1,000 ml @ 1,000 mls/hr 1X ONCE IV Last administered on 09/24/21at 16:15; Start 09/24/21 at 16:15; Stop 09/24/21 at 17:14; Status DC Ondansetron HCl (Zofran) 4 mg 1X ONCE IVP Last administered on 09/24/21at 16:15; Start 09/24/21 at 16:15; Stop 09/24/21 at 16:16; Status DC Famotidine (Pepcid Vial) 20 mg 1X ONCE IVP Last administered on 09/24/21at 16:15; Start 09/24/21 at 16:15; Stop 09/24/21 at 16:16; Status DC Morphine Sulfate (Morphine Sulfate) 2 mg 1X ONCE IVP Last administered on 09/24/21at 17:31; Start 09/24/21 at 17:30; Stop 09/24/21 at 17:31; Status DC Ceftriaxone Sodium (Rocephin) 1 gm 1X ONCE IVP Last administered on 09/24/21at 17:32; Start 09/24/21 at 17:30; Stop 09/24/21 at 17:31; Status DC Active Scripts Active Keflex (Cephalexin) 500 Mg Capsule 500 Mg PO TID 3 Days Reported No Known Medications Prior To Admisstion (Info) Each 1 Each Allergies Allergies: Coded Allergies: hydrocodone (Verified Allergy, Intermediate, HALLUCINATIONS, 09/24/21) ROS General: YES: Fatigue, Malaise, Appetite; No: Chills, Night Sweats, Other PSYCHOLOGICAL ROS: No: Anxiety, Behavioral Disorder, Concentration difficultie, Decreased libido, Depression, Disorientation, Hallucinations, Hostility, Irritablity, Memory difficulties, Mood Swings, Obsessive thoughts, Physical abuse, Sexual abuse, Sleep disturbances, Suicidal ideation, Other Eyes: No Blurry vision, No Decreased vision, No Double vision, No Dry eyes, No Excessive tearing, No Eye Pain, No Itchy Eyes, No Loss of vision, No Photophobia, No Scotomata, No Uses contacts, No Uses glasses, No Other HEENT: No: Heacaches, Visual Changes, Hearing change, Nasal congestion, Nasal discharge, Oral lesions, Sinus pain, Sore Throat, Epistaxis, Sneezing, Snoring, Tinnitus, Vertigo, Vocal changes, Other ALLERGY AND IMMUNOLOGY: No: Hives, Insect Bite Sensitivity, Itchy/Watery Eyes, Nasal Congestion, Post Nasal Drip, Seasonal Allergies, Other Hematological and Lymphatic: No: Bleeding Problems, Blood Clots, Blood Transfusions, Brusing, Night Sweats, Pallor, Swollen Lymph Nodes, Other ENDOCRINE: No: Breast Changes, Galactorrhea, Hair Pattern Changes, Hot Flashes, Malaise/lethargy, Mood Swings, Palpitations, Polydipsia/polyuria, Skin Changes, Temperature Intolerance, Unexpected Weight Changes, Other Breast: No New/Changing Breast Lumps, No Nipple changes, No Nipple discharge, N o Other Respiratory: No: Cough, Hemoptysis, Orthopnea, Pleuritic Pain, Shortness of breath, SOB with excertion, Sputum Changes, Stridor, Tachypnea, Wheezing, Other Cardiovascular: No Chest Pain, No Palpitations, No Orthopnea, No Paroxysmal Noc. Dyspnea, No Edema, No Lt Headedness, No Other Gastrointestinal: Yes Nausea, Yes Abdominal Pain, Yes Diarrhea; No Vomiting, No Constipation, No Melena, No Hematochezia, No Other Genitourinary: YES Dysuria, YES Frequency; No Incontinence, No Hematuria, No Retention, No Discharge, No Urgency, No Pain, No Flank Pain, No Other, No , No , No , No , No , No , No Musculoskeletal: No Gait Disturbance, No Joint Pain, No Joint Stiffness, No Joint Swelling, No Muscle Pain, No Muscular Weakness, No Pain In:, No Swelling In:, No Other Neurological: No Behavorial Changes, No Bowel/Bladder ControlChng, No Confusion, No Dizziness, No Gait Disturbance, No Headaches, No Impaired Coord/balance, No Memory Loss, No Numbness/Tingling, No Seizures, No Speech Problems, No Tremors, No Visual Changes, No Weakness, No Other Skin: No Dry Skin, No Eczema, No Hair Changes, No Lumps, No Mole Changes, No Mottling, No Nail Changes, No Pruritus, No Rash, No Skin Lesion Changes, No Other, No Acne Physical Exam General: Alert, Oriented X3, Cooperative, mild distress HEENT: Atraumatic, PERRLA, EOMI, Mucous membr. moist/pink Lungs: Clear to auscultation, Normal air movement Heart: S1S2, RRR, no thrills, no rubs, no gallops, no murmurs Abdomen: Normal bowel sounds, Soft, No hepatosplenomegaly, No masses, Other (diffuse mild tenderness, positive fluid wave) Rectal Exam: not examined Extremities: No clubbing, No cyanosis, Normal pulses, No tenderness/swelling, Other (R>L edema) Skin: No rashes, No breakdown, No significant lesion Neuro: Normal gait, Normal speech, Strength at 5/5 X4 ext, Normal tone, Sensation intact, Cranial nerves 3-12 NL, Reflexes 2+ Psych/Mental Status: Mental status NL, Mood NL Vitals Vitals Vital Signs Date Time Temp Pulse Resp B/P (MAP) Pulse Ox O2 Delivery O2 Flow Rate FiO2 09/24/21 17:31 Room Air 09/24/21 15:52 98.3 133 18 207/97 (133) 97 98.3 Labs Labs Laboratory Tests Test 09/24/21 16:01 09/24/21 16:10 09/24/21 16:45 Urine Collection Type Unknown Urine Color Yellow Urine Clarity Hazy Urine pH 6.5 (<5.0-8.0) Urine Specific Seney 1.005 (1.000-1.030) Urine Protein Trace mg/dL (NEG-TRACE) Urine Glucose (UA) Negative mg/dL (NEG) Urine Ketones (Stick) Negative mg/dL (NEG) Urine Blood Small (NEG) Urine Nitrite Negative (NEG) Urine Bilirubin Negative (NEG) Urine Urobilinogen Dipstick 0.2 mg/dL (0.2 mg/dL) Urine Leukocyte Esterase Large (NEG) Urine RBC 6-10 /HPF (0-2) Urine WBC Tntc /HPF (0-4) Urine Squamous Epithelial Cells Few /LPF Urine Bacteria Many /HPF (0-FEW) White Blood Count 6.2 x10^3/uL (4.0-11.0) Red Blood Count 4.18 x10^6/uL (3.50-5.40) Hemoglobin 12.0 g/dL (12.0-15.5) Hematocrit 37.1 % (36.0-47.0) Mean Corpuscular Volume 89 fL (79-100) Mean Corpuscular Hemoglobin 29 pg (25-35) Mean Corpuscular Hemoglobin Concent 32 g/dL (31-37) Red Cell Distribution Width 15.4 % (11.5-14.5) Platelet Count 155 x10^3/uL (140-400) Neutrophils (%) (Auto) 76 % (31-73) Lymphocytes (%) (Auto) 13 % (24-48) Monocytes (%) (Auto) 10 % (0-9) Eosinophils (%) (Auto) 1 % (0-3) Basophils (%) (Auto) 1 % (0-3) Neutrophils # (Auto) 4.7 x10^3/uL (1.8-7.7) Lymphocytes # (Auto) 0.8 x10^3/uL (1.0-4.8) Monocytes # (Auto) 0.6 x10^3/uL (0.0-1.1) Eosinophils # (Auto) 0.0 x10^3/uL (0.0-0.7) Basophils # (Auto) 0.0 x10^3/uL (0.0-0.2) Prothrombin Time 15.6 SEC (11.7-14.0) Prothromb Time International Ratio 1.2 (0.8-1.1) Activated Partial Thromboplast Time 31 SEC (24-38) Sodium Level 144 mmol/L (136-145) Potassium Level 3.4 mmol/L (3.5-5.1) Chloride Level 110 mmol/L (98-107) Carbon Dioxide Level 20 mmol/L (21-32) Anion Gap 14 (6-14) Blood Urea Nitrogen 12 mg/dL (7-20) Creatinine 2.1 mg/dL (0.6-1.0) Estimated GFR (Cockcroft-Gault) 22.6 BUN/Creatinine Ratio 6 (6-20) Glucose Level 119 mg/dL (70-99) Lactic Acid Level 1.9 mmol/L (0.4-2.0) Calcium Level 7.8 mg/dL (8.5-10.1) Magnesium Level 1.6 mg/dL (1.8-2.4) Total Bilirubin 0.6 mg/dL (0.2-1.0) Aspartate Amino Transf (AST/SGOT) 13 U/L (15-37) Alanine Aminotransferase (ALT/SGPT) 17 U/L (14-59) Alkaline Phosphatase 80 U/L (46-116) Troponin I High Sensitivity 9 ng/L (4-50) HS-Ymt-X-Type Natriuretic Peptide 862 pg/mL (0-449) Total Protein 6.8 g/dL (6.4-8.2) Albumin 3.1 g/dL (3.4-5.0) Albumin/Globulin Ratio 0.8 (1.0-1.7) Lipase 103 U/L (73-393) Influenza Type A Antigen Negative (NEGATIVE) Influenza Type B Antigen Negative (NEGATIVE) SARS-CoV-2 Antigen (Rapid) Negative (NEGATIVE) Laboratory Tests Test 09/24/21 16:01 09/24/21 16:10 09/24/21 16:45 Urine Collection Type Unknown Urine Color Yellow Urine Clarity Hazy Urine pH 6.5 (<5.0-8.0) Urine Specific Seney 1.005 (1.000-1.030) Urine Protein Trace mg/dL (NEG-TRACE) Urine Glucose (UA) Negative mg/dL (NEG) Urine Ketones (Stick) Negative mg/dL (NEG) Urine Blood Small (NEG) Urine Nitrite Negative (NEG) Urine Bilirubin Negative (NEG) Urine Urobilinogen Dipstick 0.2 mg/dL (0.2 mg/dL) Urine Leukocyte Esterase Large (NEG) Urine RBC 6-10 /HPF (0-2) Urine WBC Tntc /HPF (0-4) Urine Squamous Epithelial Cells Few /LPF Urine Bacteria Many /HPF (0-FEW) White Blood Count 6.2 x10^3/uL (4.0-11.0) Red Blood Count 4.18 x10^6/uL (3.50-5.40) Hemoglobin 12.0 g/dL (12.0-15.5) Hematocrit 37.1 % (36.0-47.0) Mean Corpuscular Volume 89 fL (79-100) Mean Corpuscular Hemoglobin 29 pg (25-35) Mean Corpuscular Hemoglobin Concent 32 g/dL (31-37) Red Cell Distribution Width 15.4 % (11.5-14.5) Platelet Count 155 x10^3/uL (140-400) Neutrophils (%) (Auto) 76 % (31-73) Lymphocytes (%) (Auto) 13 % (24-48) Monocytes (%) (Auto) 10 % (0-9) Eosinophils (%) (Auto) 1 % (0-3) Basophils (%) (Auto) 1 % (0-3) Neutrophils # (Auto) 4.7 x10^3/uL (1.8-7.7) Lymphocytes # (Auto) 0.8 x10^3/uL (1.0-4.8) Monocytes # (Auto) 0.6 x10^3/uL (0.0-1.1) Eosinophils # (Auto) 0.0 x10^3/uL (0.0-0.7) Basophils # (Auto) 0.0 x10^3/uL (0.0-0.2) Prothrombin Time 15.6 SEC (11.7-14.0) Prothromb Time International Ratio 1.2 (0.8-1.1) Activated Partial Thromboplast Time 31 SEC (24-38) Sodium Level 144 mmol/L (136-145) Potassium Level 3.4 mmol/L (3.5-5.1) Chloride Level 110 mmol/L (98-107) Carbon Dioxide Level 20 mmol/L (21-32) Anion Gap 14 (6-14) Blood Urea Nitrogen 12 mg/dL (7-20) Creatinine 2.1 mg/dL (0.6-1.0) Estimated GFR (Cockcroft-Gault) 22.6 BUN/Creatinine Ratio 6 (6-20) Glucose Level 119 mg/dL (70-99) Lactic Acid Level 1.9 mmol/L (0.4-2.0) Calcium Level 7.8 mg/dL (8.5-10.1) Magnesium Level 1.6 mg/dL (1.8-2.4) Total Bilirubin 0.6 mg/dL (0.2-1.0) Aspartate Amino Transf (AST/SGOT) 13 U/L (15-37) Alanine Aminotransferase (ALT/SGPT) 17 U/L (14-59) Alkaline Phosphatase 80 U/L (46-116) Troponin I High Sensitivity 9 ng/L (4-50) IM-Npz-H-Type Natriuretic Peptide 862 pg/mL (0-449) Total Protein 6.8 g/dL (6.4-8.2) Albumin 3.1 g/dL (3.4-5.0) Albumin/Globulin Ratio 0.8 (1.0-1.7) Lipase 103 U/L (73-393) Influenza Type A Antigen Negative (NEGATIVE) Influenza Type B Antigen Negative (NEGATIVE) SARS-CoV-2 Antigen (Rapid) Negative (NEGATIVE) Images Images CT ABDOMEN PELVIS WO CONTRAST: There is a small right basilar effusion. Left lung bases clear. Heart is enlarged. Liver is multiple hypodensities which are likely cysts. Liver has a relatively nodular contour to it. It is of the upper limits of normal. Stable atrophy of t he left kidney. There is a new large calculus in the left collecting system. No significant hydronephrosis or hydroureter is identified. Right kidney is stable in appearance. Limited evaluation of the other solid organs without intravenous contrast. Patient status post cholecystectomy. Pancreas grossly unremarkable in appearance. The stomach, small and large bowel are nondistended. There is pancolonic diverticulosis. Obvious bowel wall thickening is seen. There is diffuse ascites. The uterus is atrophic. There is subcutaneous anasarca. Abdominal aorta is nonaneurysmal. IMPRESSION: 1. Limited evaluation without intravenous contrast. There is diffuse ascites in the abdomen as well as a trace right basilar effusion. 2. Liver appears shrunken and somewhat nodular suggestive of cirrhosis. Correlate with history. 3. Kidneys are stable in appearance with significant atrophy of the kidney. There is a new large left renal pelvis calculus. No hydronephrosis or hydroureter is identified. 4. New diffuse subcutaneous anasarca. VTE Prophylaxis Ordered VTE Prophylaxis Devices: No VTE Pharmacological Prophylaxi: Yes Assessment/Plan Assessment/Plan A/P: Intractable abdominal pain - IV fentanyl prn Diarrhea - no vomiting. This may be more of an osmotic diarrhea and malabsorption rather than secretory diarrhea given elevated chloride level and history. Stool studies ordered Abnormal abdominal CT -liver nodularities concerning for chronic liver disease may be early cirrhosis with some skin ascites. Will consult GI for further recommendations. Unintentional weight loss -seems more due to anasarca, given findings on labs this could be from renal loss or from liver disease will trend labs. Nephrolithiasis - non-obstructive. will monitor Hypokalemia - likely GI losses, will replace Hypomagnesemia - likely GI losses, replace Abnormal UA - with some mild dysuria, treating as UTI empirically, will f/u urine cultures Abnormal renal function - she may have CKD III per last 5 years. Severe protein calorie malnutrition - with weight loss, seems to have malabsorption, will check urine protein, stool studies, fecal fats FEN - GI soft (Adentulous) PPX - H2 sean, Heparin FULL CODE Dispo - inpatient Justifications for Admission Other Justification RIANA JONES MD Sep 24, 2021 17:40
[2021-09-24] MEDS ORDERED: MAGNESIUM SULFATE 1GM 100 ML IV ONE (17:45)
--- NOTE | 2021-09-24 17:48 | PHYS DOC ---
Past Medical History Past Medical History: Hypertension, Kidney Infection, Kidney Stone, Renal Failure, UTI Additional Past Medical Histor: INTESTINAL BYPASS Past Surgical History: Appendectomy, Cholecystectomy, Tonsillectomy, Other Additional Past Surgical Histo: kidney stents, intestinal bypass X2 Smoking Status: Never Smoker Alcohol Use: None Drug Use: None Adult General Chief Complaint Chief Complaint: DIARRHEA HPI HPI Patient is a 81 year old female with diarrhea has been present for about a week. She said several watery stools per day. She has had generalized crampy abdominal pain as well and also states that her belly seems to be swelling swollen compared to normal. She is not had any fever, vomiting or blood in her stools. No chest pain, shortness of breath or recent trauma. Patient has had a gastric bypass done in the late s it sounds like but otherwise does not have any known chronic abdominal pathology. No blood in her stools. Review of Systems Review of Systems Constitutional: Denies fever Eyes: Denies change in visual acuity or eye pain HENT: Denies sore throat Respiratory: Denies shortness of breath Cardiovascular: Denies chest pain GI: Reports abd pain : Denies hematuria Musculoskeletal: Denies back or extremity injury Integument: Denies rash or skin lesions Neurologic: Denies headache, focal weakness or sensory changes All other systems were reviewed and found to be within normal limits, except as documented in this note. Current Medications Current Medications Current Medications Medications (Trade) Dose Ordered Sig/Kvng Start Time Stop Time Status Last Admin Dose Admin Ceftriaxone Sodium (Rocephin) 1 gm 1X ONCE 09/24/21 17:30 09/24/21 17:31 DC 09/24/21 17:32 1 GM Famotidine (Pepcid Vial) 20 mg 1X ONCE 09/24/21 16:15 09/24/21 16:16 DC 09/24/21 16:15 20 MG Magnesium Sulfate/ Dextrose 100 ml @ 100 mls/hr 1X ONCE 09/24/21 17:45 09/24/21 18:44 UNV Morphine Sulfate (Morphine Sulfate) 2 mg 1X ONCE 09/24/21 17:30 09/24/21 17:31 DC 09/24/21 17:31 2 MG Ondansetron HCl (Zofran) 4 mg 1X ONCE 09/24/21 16:15 09/24/21 16:16 DC 09/24/21 16:15 4 MG Sodium Chloride 1,000 ml @ 1,000 mls/hr 1X ONCE 09/24/21 16:15 09/24/21 17:14 DC 09/24/21 16:15 1,000 MLS/HR Allergies Allergies Allergies Coded Allergies Type Severity Reaction Last Updated Verified hydrocodone Allergy Intermediate HALLUCINATIONS 09/24/21 Yes Physical Exam Physical Exam Constitutional: Well developed, well nourished, no acute distress, non-toxic appearance. HENT: Normocephalic, atraumatic, bilateral external ears normal, mucosa somewhat dry, nose normal. Eyes: EOMI, conjunctiva normal, no discharge, mild pallor. Neck: Normal range of motion, supple, no stridor, no meningeal signs. Cardiovascular: Regular rate and rhythm Lungs & Thorax: Bilateral breath sounds clear to auscultation Abdomen: Soft, mild generalized tenderness with dullness to percussion. Protuberant abdomen. Skin: Warm, dry, no erythema, no rash. Extremities: No tenderness, no cyanosis, no clubbing, ROM intact, lower extremity edema. Neurologic: Alert and oriented, normal motor function, normal sensory function, no focal deficits noted. Psychologic: Affect normal, judgement normal, mood normal. Current Patient Data Vital Signs Vital Signs Date Time Temp Pulse Resp B/P (MAP) Pulse Ox O2 Delivery O2 Flow Rate FiO2 09/24/21 17:31 Room Air 09/24/21 15:52 98.3 133 18 207/97 (133) 97 98.3 Lab Values Laboratory Tests Test 09/24/21 16:01 09/24/21 16:10 09/24/21 16:45 Urine Collection Type Unknown Urine Color Yellow Urine Clarity Hazy Urine pH 6.5 (<5.0-8.0) Urine Specific [place] 1.005 (1.000-1.030) Urine Protein Trace mg/dL (NEG-TRACE) Urine Glucose (UA) Negative mg/dL (NEG) Urine Ketones (Stick) Negative mg/dL (NEG) Urine Blood Small (NEG) Urine Nitrite Negative (NEG) Urine Bilirubin Negative (NEG) Urine Urobilinogen Dipstick 0.2 mg/dL (0.2 mg/dL) Urine Leukocyte Esterase Large (NEG) Urine RBC 6-10 /HPF (0-2) Urine WBC Tntc /HPF (0-4) Urine Squamous Epithelial Cells Few /LPF Urine Bacteria Many /HPF (0-FEW) White Blood Count 6.2 x10^3/uL (4.0-11.0) Red Blood Count 4.18 x10^6/uL (3.50-5.40) Hemoglobin 12.0 g/dL (12.0-15.5) Hematocrit 37.1 % (36.0-47.0) Mean Corpuscular Volume 89 fL (79-100) Mean Corpuscular Hemoglobin 29 pg (25-35) Mean Corpuscular Hemoglobin Concent 32 g/dL (31-37) Red Cell Distribution Width 15.4 % (11.5-14.5) H Platelet Count 155 x10^3/uL (140-400) Neutrophils (%) (Auto) 76 % (31-73) H Lymphocytes (%) (Auto) 13 % (24-48) L Monocytes (%) (Auto) 10 % (0-9) H Eosinophils (%) (Auto) 1 % (0-3) Basophils (%) (Auto) 1 % (0-3) Neutrophils # (Auto) 4.7 x10^3/uL (1.8-7.7) Lymphocytes # (Auto) 0.8 x10^3/uL (1.0-4.8) L Monocytes # (Auto) 0.6 x10^3/uL (0.0-1.1) Eosinophils # (Auto) 0.0 x10^3/uL (0.0-0.7) Basophils # (Auto) 0.0 x10^3/uL (0.0-0.2) Prothrombin Time 15.6 SEC (11.7-14.0) H Prothrombin Time INR 1.2 (0.8-1.1) H Activated Partial Thromboplast Time 31 SEC (24-38) Sodium Level 144 mmol/L (136-145) Potassium Level 3.4 mmol/L (3.5-5.1) L Chloride Level 110 mmol/L (98-107) H Carbon Dioxide Level 20 mmol/L (21-32) L Anion Gap 14 (6-14) Blood Urea Nitrogen 12 mg/dL (7-20) Creatinine 2.1 mg/dL (0.6-1.0) H Estimated GFR (Cockcroft-Gault) 22.6 BUN/Creatinine Ratio 6 (6-20) Glucose Level 119 mg/dL (70-99) H Lactic Acid Level 1.9 mmol/L (0.4-2.0) Calcium Level 7.8 mg/dL (8.5-10.1) L Magnesium Level 1.6 mg/dL (1.8-2.4) L Total Bilirubin 0.6 mg/dL (0.2-1.0) Aspartate Amino Transferase (AST) 13 U/L (15-37) L Alanine Aminotransferase (ALT) 17 U/L (14-59) Alkaline Phosphatase 80 U/L (46-116) Troponin I High Sensitivity 9 ng/L (4-50) UG-Xod-V-Type Natriuretic Peptide 862 pg/mL (0-449) H Total Protein 6.8 g/dL (6.4-8.2) Albumin 3.1 g/dL (3.4-5.0) L Albumin/Globulin Ratio 0.8 (1.0-1.7) L Lipase 103 U/L (73-393) Influenza Type A Antigen Negative (NEGATIVE) Influenza Type B Antigen Negative (NEGATIVE) SARS-CoV-2 Antigen (Rapid) Negative (NEGATIVE) Laboratory Tests 09/24/21 16:10 Laboratory Tests 09/24/21 16:10 EKG EKG [] Radiology/Procedures Radiology/Procedures [] Impressions: PATIENT: NELIDA SEARS LACCOUNT: [id number]#: [id number] : 1940 LOCATION: ER AGE: 81 SEX: F EXAM STATUS: PRE ER ORD. PHYSICIAN: CALLY WAGNER MD REASON: LEFT ABDOMINAL PAIN AND DIARRHEA PROCEDURE: CT ABDOMEN PELVIS WO CONTRAST Axial noncontrast CT imaging the abdomen pelvis was obtained. Coronal and sagittal reformats are available. COMPARISON: 08/22/2017. INDICATION: Abdominal pain and diarrhea. FINDINGS: There is a small right basilar effusion. Left lung bases clear. Heart is enlarged. Liver is multiple hypodensities which are likely cysts. Liver has a relatively nodular contour to it. It is of the upper limits of normal. Stable atrophy of the left kidney. There is a new large calculus in the left collecting system. No significant hydronephrosis or hydroureter is identified. Right kidney is stable in appearance. Limited evaluation of the other solid organs without intravenous contrast. Patient status post cholecystectomy. Pancreas grossly unremarkable in appearance. The stomach, small and large bowel are nondistended. There is pancolonic diverticulosis. Obvious bowel wall thickening is seen. There is diffuse ascites. The uterus is atrophic. There is subcutaneous anasarca. Abdominal aorta is nonaneurysmal. IMPRESSION: 1. Limited evaluation without intravenous contrast. There is diffuse ascites in the abdomen as well as a trace right basilar effusion. 2. Liver appears shrunken and somewhat nodular suggestive of cirrhosis. Correlate with history. 3. Kidneys are stable in appearance with significant atrophy of the kidney. There is a new large left renal pelvis calculus. No hydronephrosis or hydroureter is identified. 4. New diffuse subcutaneous anasarca. Exposure: One or more of the following individualized dose reduction techniques were utilized for this examination: 1. Automated exposure control 2. Adjustment of the mA and/or kV according to patient size 3. Use of iterative reconstruction technique Electronically signed by: Edgar Ho MD (09/24/2021 4:29 PM) [facility] DICTATED and SIGNED BY: EDGAR HO MD DATE: 09/24/21 [id number] 0 Course & Med Decision Making Course & Med Decision Making Pertinent Labs and Imaging studies reviewed. (See chart for details) [] Is an 81-year-old female with diarrhea and abdominal distention. CT of the abdomen pelvis demonstrates quite a bit of free fluid in the abdominal cavity consistent with ascites. She is also noted to have a cirrhotic appearance to her liver and atrophied kidneys. On lab studies her creatinine is 2.1, I believe this is down from her previous studies though. Urinalysis is indicative of a significant urinary tract infection. We have ordered ceftriaxone and normal saline for the patient as well as morphine, Zofran and Pepcid. I spoke with the hospitalist Dr. Carney who has been kind enough to keep her in the hospital for further work-up and management, patient is in stable but guarded condition currently. Dragon Disclaimer Dragon Disclaimer This electronic medical record was generated, in whole or in part, using a voice recognition dictation system. Departure Departure Impression: Primary Impression: Ascites Additional Impressions: Diarrhea UTI (urinary tract infection) Disposition: ADMITTED INPATIENT Condition: STABLE Referrals: UNKNOWN PCP NAME (PCP) Problem Qualifiers CALLY WAGNER MD Sep 24, 2021 17:48
[2021-09-24] MEDS ORDERED: fentaNYL PF VIAL 100 MCG/2 ML VIAL IVP PRN (18:30)
[2021-09-24] MEDS ORDERED: ACETAMINOPHEN 325 MG TABLET. PO PRN (18:30)
[2021-09-24] MEDS ORDERED: ONDANSETRON ODT 4 MG TAB.RAPDIS. PO PRN (18:30)
[2021-09-24] MEDS ORDERED: hydrALAZINE 20 MG/ML VIAL. IVP PRN (18:30)
[2021-09-24] MEDS ORDERED: ONDANSETRON PF 4 MG/2 ML VIAL. IVP PRN (18:30)
[2021-09-24 19:00] VITALS: BP 190/80
[2021-09-24] MEDS ORDERED: POTASSIUM CL 20MEQ D5-0.45NACL 1,000 ML IV SCH (19:00)
[2021-09-24] MEDS: HEPARIN for SUB-Q USE 5,000 UNIT/ML VIAL. SQ SCH (21:33)
[2021-09-24 23:00] VITALS: BP 120/57
[2021-09-25] VITALS (9 sets, daily range): BP systolic 132–200; BP diastolic 59–96
[2021-09-25] MEDS: HEPARIN for SUB-Q USE 5,000 UNIT/ML VIAL. SQ SCH ×3 (05:53→20:31)
[2021-09-25 06:18] LABS: ALBUMIN 2.4 g/dL (3.4-5.0); ALBUMIN/GLOBULIN RATIO 0.8 (1.0-1.7); CALCIUM 6.9 mg/dL (8.5-10.1); CREATININE 2.1 mg/dL (0.6-1.0); GFR 22.6; POTASSIUM 3.3 mmol/L (3.5-5.1); TOTAL BILIRUBIN 0.4 mg/dL (0.2-1.0); TOTAL PROTEIN 5.5 g/dL (6.4-8.2)
[2021-09-25] MEDS: POTASSIUM CHLORIDE 20 MEQ TABLET.ER. PO SCH ×2 (08:53→20:30)
[2021-09-25] MEDS: cefTRIAXone IV Push 1 GM VIAL. IVP SCH (08:55)
--- NOTE | 2021-09-25 09:03 | PDOC2 ---
GI CONSULT Date of Service: DATE: 09/25/21 TIME: 09:02 Reason For Consult: malabsorption, diarrhea, ?cirrhosis HPI: HPI: 81 y/o female admitted through ER. Has chronic diarrhea - ongoing issue since weight loss surgery ("they call it a bypass - they takes 12 inches from somewhere and put it somewhere else") in 1969 which got "stretched out" and was repeated in 1971. Surgeries done at [facility]. Diarrhea occurs frequently throughout the day, sometimes during the night. Difficult to leave the house. Depends on what she eats or if she feels nervous. Watery/loose/chunks. Never treated. Issues w/ bloating, early satiety, and weight loss (not sure how much but the skin hangs off her arms) x a few months. During the past week, diarrhea might be more frequent but her biggest issue is that she can't make it to the bathroom in time. Associated w/ cramping. Tried Zantac once which helped. Denies reflux/heartburn, dysphagia, n/v, constipation, hematochezia, and melena. No previous EGD or colonoscopy. S/p cholecystectomy (not sure about gallstones but knows she has kidney stones). Says had liver biopsy during bypass that showed fat. Current CT as below; prev ious CT in 2018 mentioned possible cirrhosis w/ splenomegaly - unchanged in 2013 w/ left hepatic lobe cysts. No pancreas or PUD history. Tells me takes not OTC or Rx meds except a cranberry pill sometimes. Hasn't been to a doctor in a few years. Her [id number] works at but she prefers small hospitals and lives 4 [address] from here and doesn't like to travel far. PMH: PMH: per chart: HTN, CKD - she says no home meds ureterolithiasis, UTI cholecystectomy, appendectomy, cystoscopy/stents, tonsillectomy, weight loss surgery/bypass x 2, liver biopsy FH: Family History: Cancer ("my mom probably did") Social History: Smoke: No ALCOHOL: none Drugs: None ROS: GEN: Denies fevers, chills, sweats HEENT: Denies blurred vision, sore throat CV: Denies chest pain RESP: Denies shortness of air, cough GI: Per HPI : Denies hematuria, dysuria ENDO: +weight loss NEURO: Denies confusion, dizziness MSK: +weakness SKIN: Denies jaundice, pruritus Vitals: Vitals: Vital Signs Date Time Temp Pulse Resp B/P (MAP) Pulse Ox O2 Delivery O2 Flow Rate FiO2 09/25/21 03:00 98.1 95 18 149/76 (100) 94 98.1 09/24/21 20:00 Room Air Labs: Labs: Laboratory Tests Test 09/24/21 16:01 09/24/21 16:10 09/24/21 16:45 09/25/21 04:25 Urine Collection Type Unknown Urine Color Yellow Urine Clarity Hazy Urine pH 6.5 (<5.0-8.0) Urine Specific [place] 1.005 (1.000-1.030) Urine Protein Trace mg/dL (NEG-TRACE) Urine Glucose (UA) Negative mg/dL (NEG) Urine Ketones (Stick) Negative mg/dL (NEG) Urine Blood Small (NEG) Urine Nitrite Negative (NEG) Urine Bilirubin Negative (NEG) Urine Urobilinogen Dipstick 0.2 mg/dL (0.2 mg/dL) Urine Leukocyte Esterase Large (NEG) Urine RBC 6-10 /HPF (0-2) Urine WBC Tntc /HPF (0-4) Urine Squamous Epithelial Cells Few /LPF Urine Bacteria Many /HPF (0-FEW) Urine Random Total Protein 28.4 mg/dL (Not Establ.) White Blood Count 6.2 x10^3/uL (4.0-11.0) Red Blood Count 4.18 x10^6/uL (3.50-5.40) Hemoglobin 12.0 g/dL (12.0-15.5) Hematocrit 37.1 % (36.0-47.0) Mean Corpuscular Volume 89 fL (79-100) Mean Corpuscular Hemoglobin 29 pg (25-35) Mean Corpuscular Hemoglobin Concent 32 g/dL (31-37) Red Cell Distribution Width 15.4 % (11.5-14.5) Platelet Count 155 x10^3/uL (140-400) Neutrophils (%) (Auto) 76 % (31-73) Lymphocytes (%) (Auto) 13 % (24-48) Monocytes (%) (Auto) 10 % (0-9) Eosinophils (%) (Auto) 1 % (0-3) Basophils (%) (Auto) 1 % (0-3) Neutrophils # (Auto) 4.7 x10^3/uL (1.8-7.7) Lymphocytes # (Auto) 0.8 x10^3/uL (1.0-4.8) Monocytes # (Auto) 0.6 x10^3/uL (0.0-1.1) Eosinophils # (Auto) 0.0 x10^3/uL (0.0-0.7) Basophils # (Auto) 0.0 x10^3/uL (0.0-0.2) Prothrombin Time 15.6 SEC (11.7-14.0) Prothromb Time International Ratio 1.2 (0.8-1.1) Activated Partial Thromboplast Time 31 SEC (24-38) Sodium Level 144 mmol/L (136-145) 146 mmol/L (136-145) Potassium Level 3.4 mmol/L (3.5-5.1) 3.3 mmol/L (3.5-5.1) Chloride Level 110 mmol/L (98-107) 113 mmol/L (98-107) Carbon Dioxide Level 20 mmol/L (21-32) 20 mmol/L (21-32) Anion Gap 14 (6-14) 13 (6-14) Blood Urea Nitrogen 12 mg/dL (7-20) 13 mg/dL (7-20) Creatinine 2.1 mg/dL (0.6-1.0) 2.1 mg/dL (0.6-1.0) Estimated GFR (Cockcroft-Gault) 22.6 22.6 BUN/Creatinine Ratio 6 (6-20) 6 (6-20) Glucose Level 119 mg/dL (70-99) 102 mg/dL (70-99) Lactic Acid Level 1.9 mmol/L (0.4-2.0) Calcium Level 7.8 mg/dL (8.5-10.1) 6.9 mg/dL (8.5-10.1) Magnesium Level 1.6 mg/dL (1.8-2.4) Total Bilirubin 0.6 mg/dL (0.2-1.0) 0.4 mg/dL (0.2-1.0) Aspartate Amino Transf (AST/SGOT) 13 U/L (15-37) 8 U/L (15-37) Alanine Aminotransferase (ALT/SGPT) 17 U/L (14-59) 11 U/L (14-59) Alkaline Phosphatase 80 U/L (46-116) 59 U/L (46-116) Troponin I High Sensitivity 9 ng/L (4-50) PO-Jom-V-Type Natriuretic Peptide 862 pg/mL (0-449) Total Protein 6.8 g/dL (6.4-8.2) 5.5 g/dL (6.4-8.2) Albumin 3.1 g/dL (3.4-5.0) 2.4 g/dL (3.4-5.0) Albumin/Globulin Ratio 0.8 (1.0-1.7) 0.8 (1.0-1.7) Lipase 103 U/L (73-393) Influenza Type A Antigen Negative (NEGATIVE) Influenza Type B Antigen Negative (NEGATIVE) SARS-CoV-2 Antigen (Rapid) Negative (NEGATIVE) Allergies: Coded Allergies: hydrocodone (Verified Allergy, Intermediate, HALLUCINATIONS, 09/24/21) Medications: Current Medications Medications (Trade) Dose Ordered Sig/Kvng Route PRN Reason Start Time Stop Time Status Last Admin Dose Admin Sodium Chloride 1,000 ml @ 1,000 mls/hr 1X ONCE IV 09/24/21 16:15 09/24/21 17:14 DC 09/24/21 16:15 Ondansetron HCl (Zofran) 4 mg 1X ONCE IVP 09/24/21 16:15 09/24/21 16:16 DC 09/24/21 16:15 Famotidine (Pepcid Vial) 20 mg 1X ONCE IVP 09/24/21 16:15 09/24/21 16:16 DC 09/24/21 16:15 Morphine Sulfate (Morphine Sulfate) 2 mg 1X ONCE IVP 09/24/21 17:30 09/24/21 17:31 DC 09/24/21 17:31 Ceftriaxone Sodium (Rocephin) 1 gm 1X ONCE IVP 09/24/21 17:30 09/24/21 17:31 DC 09/24/21 17:32 Magnesium Sulfate/ Dextrose 100 ml @ 100 mls/hr 1X ONCE IV 09/24/21 17:45 09/24/21 18:44 DC 09/24/21 18:30 Amylase/Lipase/ Protease (Zenpep 5,000) 2 cap TIDWMEALS PO 09/25/21 08:00 09/25/21 08:48 Hydralazine HCl (Apresoline Inj) 10 mg PRN Q4HRS PRN IVP ELEVATED BP, SEE COMMENTS 09/24/21 18:30 09/24/21 21:32 Heparin Sodium (Porcine) (Heparin Sodium) 5,000 unit Q8HRS SQ 09/24/21 22:00 09/25/21 05:53 Ceftriaxone Sodium (Rocephin) 1 gm DAILY IVP 09/25/21 09:00 09/26/21 09:01 09/25/21 08:55 Potassium Chloride/Dextrose/ Sod Cl 1,000 ml @ 100 mls/hr Q10H IV 09/24/21 19:00 09/25/21 04:59 DC 09/24/21 21:32 Potassium Chloride (Klor-Con) 40 meq BID PO 09/25/21 09:00 09/26/21 08:59 09/25/21 08:53 Imaging: Imaging: CT A/P 09/24/21 IMPRESSION: 1. Limited evaluation without intravenous contrast. There is diffuse ascites in the abdomen as well as a trace right basilar effusion. 2. Liver appears shrunken and somewhat nodular suggestive of cirrhosis. Correlate with history. 3. Kidneys are stable in appearance with significant atrophy of the kidney. There is a new large left renal pelvis calculus. No hydronephrosis or hydroureter is identified. 4. New diffuse subcutaneous anasarca. PE: GEN: NAD HEENT: Atraumatic, PERRL LUNGS: CTAB HEART: RRR ABD: distended/anasarca, uncomfortable EXTREMITY: bilateral ankle edema SKIN: No rashes, no jaundice NEURO/PSYCH: A & O 3 OTHER: watery/loose light brown stool in toilet A/P: A/P: Abdominal distention, early satiety, weight loss, weakness UTI, CKD, anasarca, hypoalbuminemia Chronic diarrhea (now more frequent/more issues w/ incontinence), abdominal cramping S/p weight loss surgery/some sort of bypass w/ liver biopsy ("fat") ?GERD CRC screen - none S/p cholecystectomy Possible cirrhosis Rapid COVID negative -- ?related to bypass Started on Zenpep and stool tests ordered (C Diff, enteric panel, fecal WBC, fecal fat) - await these. Can check liver US for completeness - ?JASSO Other per Dr. Whitehead. MARGE CAMACHO Sep 25, 2021 09:03
--- NOTE | 2021-09-25 11:23 | NUR ---
SW following. Discussed with RN, pt from home with family, room air, soft diet, rapid COVID-19 negative. GI following - paracentesis planned for today. Per RN, pt get around well. RN advised no SW needs at this time. SW will continue to follow.
[2021-09-25] MEDS ORDERED: ALBUMIN HUMAN 25% 100 ML IV ONE ×2 (11:42→12:00)
[2021-09-25] MEDS: PANTOPRAZOLE 40 MG TABLET.DR. PO SCH (12:04)
--- NOTE | 2021-09-25 12:43 | RAD ---
Procedure: Paracentesis. Clinical Indication: Adult female with ascites. Medications: None Technique and Findings: Following informed consent, the patient was prepped and draped in the usual s terile fashion. 2% lidocaine was used to achieve local anesthesia over the right lower quadrant of th e abdomen. Ultrasound interrogation of the abdomen was performed, and demonstrated free ascites. A sm all skin incision was made and a Nrhq-L-Ruyzabdw catheter was advanced under ultrasound guidance into the peritoneal cavity. 3.4L liters of thin yellow ascites was then removed. The catheter was removed and hemostasis was readily achieved with manual compression. The patient tolerated the procedure wel l and left the radiology department in stable condition. Impression: 1. Paracentesis as described. Electronically signed by: Jad Hogan MD (09/25/2021 12:39 PM) [id number]
[2021-09-25 13:48] LABS: BF CLARITY HAZY; BF COLOR YELLOW; BF MON % 44 %; BF PMN % 43 %; BF RBC COUNT 1170 /cmm (Not Established); BF SOURCE ASCITES; BF WBC COUNT 382 /cmm (Not Established)
--- NOTE | 2021-09-25 13:48 | RAD ---
US ABDOMEN COMPLETE History: Possible cirrhosis on CT Comparison: 09/24/2021 CT abdomen and pelvis, 08/22/2017 CT abdomen pelvis Technique: Sonographic examination of the abdomen. Findings: Pancreas: Obscured by bowel gas. Liver: The liver measures 13.2 cm. The hepatic contour is nodular. Liver echotexture is coarsened wi thout increased echogenicity. Left hepatic cyst measures 1.6 cm diameter. Hepatopetal flow in the por esteban vein. Gallbladder: Status post cholecystectomy. Bile ducts: The common duct measures 6 mm. Right kidney: 11.1 cm length. No mass or hydronephrosis. 1.4 cm lower pole cyst. Spleen: Enlarged measuring 13.4 x 8.5 x 7.1 cm. No masses. A few echogenic foci are consistent with c alcified granulomas. Left kidney: Obscured by bowel gas. Aorta/IVC: Visualized portions are unremarkable. Other: Moderate abdominal ascites. Impression: 1. Nodular hepatic contour with moderate ascites and splenomegaly consistent with cirrhosis and port al hypertension. The portal vein remains patent. Electronically signed by: Mitchel Mei MD (09/25/2021 1:45 PM) [id number]
[2021-09-25 13:49] LABS: BF OTHER % 13 %
--- NOTE | 2021-09-25 14:28 | PDOC ---
[employer] PROGRESS NOTE Date of Service DOS: DATE: 09/25/21 TIME: 14:26 Chief Complaint Chief Complaint Assessment/Plan DHAVAL due to vasomotor nephropathy Intractable abdominal pain - IV fentanyl prn Diarrhea - no vomiting. This may be more of an osmotic diarrhea and malabsorption rather than secretory diarrhea given elevated chloride level and history. Stool studies ordered Abnormal abdominal CT -liver nodularities concerning for chronic liver disease may be early cirrhosis with some skin ascites. Will consult GI for further recommendations. Unintentional weight loss -seems more due to anasarca, given findings on labs this could be from renal loss or from liver disease will trend labs. Nephrolithiasis - non-obstructive. will monitor Hypokalemia - likely GI losses, will replace Hypomagnesemia - likely GI losses, replace Abnormal UA - with some mild dysuria, treating as UTI empirically, will f/u urine cultures Abnormal renal function - she may have CKD III per last 5 years. 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 She does note she has chronic diarrhea but over the last week has become much worse no she can control it and notes cramping of her belly for the past week as well. She does note historically she has had a gastrointestinal bypass surgery previously. She also notes her stools have been oily and floating. She has had such fecal urgency that she has had some accidents and chairs in bed at home. She did become a little weak and notes that she has lost around 40 pounds likely over the last year. She has not seen a doctor in the last 2 years. She does not think she is ever had a screening colonoscopy or seen a wide area network administrator before. Labs with WBC 6.2, Hb 12, platelets 155, NA 144, K3.4, BUN 12, CR 2.1, glucose 119, calcium 7.8, magnesium 1.6, bilirubin 0.6, AST 13, ALT 17, alk phos 80, albumin 3.1, lipase 103, NT proBNP 862, HS troponin 9, lactic acid 1.9, rapid COVID-19 rapid influenza both negative, urinalysis with WBCs large leuk esterase small blood. CT abdomen pelvis reveals small right pleural effusion and liver with multiple hypodensities and nodularity. Left renal atrophy and left renal pelvic nonobstructing calculus noted, subcutaneous anasarca. 09/25/2021 No acute events overnight. Patient seen examined bedside. Plan for paracentesis and echocardiogram. GI evaluation actively in progress. AF and VSS. Vitals/I&O Vitals/I&O: Vital Signs Date Time Temp Pulse Resp B/P (MAP) Pulse Ox O2 Delivery O2 Flow Rate FiO2 09/25/21 11:49 91 16 165/59 (94) 98 Room Air 09/25/21 07:00 98.0 98.0 Physical Exam General: Alert, Oriented X3, Cooperative, mild distress Lungs: Clear Abdomen: Normal bowel sounds, Soft, No hepatosplenomegaly, No masses, Other (diffuse mild tenderness, positive fluid wave) Extremities: No clubbing, No cyanosis, Normal pulses, No tenderness/swelling, Other (R>L edema) Skin: No rashes, No breakdown, No significant lesion Labs Labs: Laboratory Tests Test 09/24/21 16:01 09/24/21 16:10 09/24/21 16:45 09/25/21 04:25 Urine Collection Type Unknown Urine Color Yellow Urine Clarity Hazy Urine pH 6.5 (<5.0-8.0) Urine Specific [place] 1.005 (1.000-1.030) Urine Protein Trace mg/dL (NEG-TRACE) Urine Glucose (UA) Negative mg/dL (NEG) Urine Ketones (Stick) Negative mg/dL (NEG) Urine Blood Small (NEG) Urine Nitrite Negative (NEG) Urine Bilirubin Negative (NEG) Urine Urobilinogen Dipstick 0.2 mg/dL (0.2 mg/dL) Urine Leukocyte Esterase Large (NEG) Urine RBC 6-10 /HPF (0-2) Urine WBC Tntc /HPF (0-4) Urine Squamous Epithelial Cells Few /LPF Urine Bacteria Many /HPF (0-FEW) Urine Random Total Protein 28.4 mg/dL (Not Establ.) White Blood Count 6.2 x10^3/uL (4.0-11.0) Red Blood Count 4.18 x10^6/uL (3.50-5.40) Hemoglobin 12.0 g/dL (12.0-15.5) Hematocrit 37.1 % (36.0-47.0) Mean Corpuscular Volume 89 fL (79-100) Mean Corpuscular Hemoglobin 29 pg (25-35) Mean Corpuscular Hemoglobin Concent 32 g/dL (31-37) Red Cell Distribution Width 15.4 % (11.5-14.5) Platelet Count 155 x10^3/uL (140-400) Neutrophils (%) (Auto) 76 % (31-73) Lymphocytes (%) (Auto) 13 % (24-48) Monocytes (%) (Auto) 10 % (0-9) Eosinophils (%) (Auto) 1 % (0-3) Basophils (%) (Auto) 1 % (0-3) Neutrophils # (Auto) 4.7 x10^3/uL (1.8-7.7) Lymphocytes # (Auto) 0.8 x10^3/uL (1.0-4.8) Monocytes # (Auto) 0.6 x10^3/uL (0.0-1.1) Eosinophils # (Auto) 0.0 x10^3/uL (0.0-0.7) Basophils # (Auto) 0.0 x10^3/uL (0.0-0.2) Prothrombin Time 15.6 SEC (11.7-14.0) Prothromb Time International Ratio 1.2 (0.8-1.1) Activated Partial Thromboplast Time 31 SEC (24-38) Sodium Level 144 mmol/L (136-145) 146 mmol/L (136-145) Potassium Level 3.4 mmol/L (3.5-5.1) 3.3 mmol/L (3.5-5.1) Chloride Level 110 mmol/L (98-107) 113 mmol/L (98-107) Carbon Dioxide Level 20 mmol/L (21-32) 20 mmol/L (21-32) Anion Gap 14 (6-14) 13 (6-14) Blood Urea Nitrogen 12 mg/dL (7-20) 13 mg/dL (7-20) Creatinine 2.1 mg/dL (0.6-1.0) 2.1 mg/dL (0.6-1.0) Estimated GFR (Cockcroft-Gault) 22.6 22.6 BUN/Creatinine Ratio 6 (6-20) 6 (6-20) Glucose Level 119 mg/dL (70-99) 102 mg/dL (70-99) Lactic Acid Level 1.9 mmol/L (0.4-2.0) Calcium Level 7.8 mg/dL (8.5-10.1) 6.9 mg/dL (8.5-10.1) Magnesium Level 1.6 mg/dL (1.8-2.4) Total Bilirubin 0.6 mg/dL (0.2-1.0) 0.4 mg/dL (0.2-1.0) Aspartate Amino Transf (AST/SGOT) 13 U/L (15-37) 8 U/L (15-37) Alanine Aminotransferase (ALT/SGPT) 17 U/L (14-59) 11 U/L (14-59) Alkaline Phosphatase 80 U/L (46-116) 59 U/L (46-116) Troponin I High Sensitivity 9 ng/L (4-50) SV-Ata-L-Type Natriuretic Peptide 862 pg/mL (0-449) Total Protein 6.8 g/dL (6.4-8.2) 5.5 g/dL (6.4-8.2) Albumin 3.1 g/dL (3.4-5.0) 2.4 g/dL (3.4-5.0) Albumin/Globulin Ratio 0.8 (1.0-1.7) 0.8 (1.0-1.7) Lipase 103 U/L (73-393) Influenza Type A Antigen Negative (NEGATIVE) Influenza Type B Antigen Negative (NEGATIVE) SARS-CoV-2 Antigen (Rapid) Negative (NEGATIVE) Test 09/25/21 08:44 09/25/21 11:20 Magnesium Level 1.6 mg/dL (1.8-2.4) Body Fluid Source Ascites Body Fluid Color Yellow Body Fluid Clarity Hazy Body Fluid Nucleated Cells 382 /cmm (Not Established) Body Fluid Mononuclear WBCs (%) 44 % Body Fluid Polymorphonuclear Cells 43 % Body Fluid Total RBCs Counted 1170 /cmm (Not Established) Body Fluid Other Cells (%) 13 % Assessment and Plan Assessmemt and Plan Problems Medical Problems: (1) Ascites Status: Acute (2) Diarrhea Status: Acute (3) UTI (urinary tract infection) Status: Acute Comment Review of Relevant I have reviewed the following items rehan (where applicable) has been applied. Medications: Current Medications Medications (Trade) Dose Ordered Sig/Kvng Route PRN Reason Start Time Stop Time Status Last Admin Dose Admin Sodium Chloride 1,000 ml @ 1,000 mls/hr 1X ONCE IV 09/24/21 16:15 09/24/21 17:14 DC 09/24/21 16:15 Ondansetron HCl (Zofran) 4 mg 1X ONCE IVP 09/24/21 16:15 09/24/21 16:16 DC 09/24/21 16:15 Famotidine (Pepcid Vial) 20 mg 1X ONCE IVP 09/24/21 16:15 09/24/21 16:16 DC 09/24/21 16:15 Morphine Sulfate (Morphine Sulfate) 2 mg 1X ONCE IVP 09/24/21 17:30 09/24/21 17:31 DC 09/24/21 17:31 Ceftriaxone Sodium (Rocephin) 1 gm 1X ONCE IVP 09/24/21 17:30 09/24/21 17:31 DC 09/24/21 17:32 Magnesium Sulfate/ Dextrose 100 ml @ 100 mls/hr 1X ONCE IV 09/24/21 17:45 09/24/21 18:44 DC 09/24/21 18:30 Amylase/Lipase/ Protease (Zenpep 5,000) 2 cap TIDWMEALS PO 09/25/21 08:00 09/25/21 12:03 Hydralazine HCl (Apresoline Inj) 10 mg PRN Q4HRS PRN IVP ELEVATED BP, SEE COMMENTS 09/24/21 18:30 09/24/21 21:32 Heparin Sodium (Porcine) (Heparin Sodium) 5,000 unit Q8HRS SQ 09/24/21 22:00 09/25/21 05:53 Ceftriaxone Sodium (Rocephin) 1 gm DAILY IVP 09/25/21 09:00 09/26/21 09:01 09/25/21 08:55 Potassium Chloride/Dextrose/ Sod Cl 1,000 ml @ 100 mls/hr Q10H IV 09/24/21 19:00 09/25/21 04:59 DC 09/24/21 21:32 Potassium Chloride (Klor-Con) 40 meq BID PO 09/25/21 09:00 09/26/21 08:59 09/25/21 08:53 Pantoprazole Sodium (Protonix) 40 mg DAILYAC PO 09/25/21 11:00 09/25/21 12:04 Albumin Human 100 ml @ 100 mls/hr 1X ONCE IV 09/25/21 12:00 09/25/21 12:59 DC 09/25/21 11:54 Justifications for Admission Other Justification DARIUSZ SPIVEY MD Sep 25, 2021 14:27
[2021-09-26 03:00] VITALS: BP 165/53
[2021-09-26] MEDS: HEPARIN for SUB-Q USE 5,000 UNIT/ML VIAL. SQ SCH ×3 (06:00→20:31)
[2021-09-26 07:00] VITALS: BP 143/54
[2021-09-26] MEDS: PANTOPRAZOLE 40 MG TABLET.DR. PO SCH (07:25)
[2021-09-26 08:19] LABS: ALBUMIN 2.7 g/dL (3.4-5.0); ALBUMIN/GLOBULIN RATIO 1.1 (1.0-1.7); CALCIUM 7.8 mg/dL (8.5-10.1); CREATININE 2.1 mg/dL (0.6-1.0); GFR 22.6; POTASSIUM 4.8 mmol/L (3.5-5.1); TOTAL BILIRUBIN 0.3 mg/dL (0.2-1.0); TOTAL PROTEIN 5.2 g/dL (6.4-8.2)
[2021-09-26] MEDS: cefTRIAXone IV Push 1 GM VIAL. IVP SCH ×2 (08:27→15:19)
--- NOTE | 2021-09-26 10:27 | PDOC ---
Date of Service: DATE: 09/26/21 TIME: 10:20 Subjective: Subjective: Feels 50-75% better. Eating more than she has in awhile. Less bloated. No diarrhea - soft stools - thinks "all those pills" are helping. Asks when she can go home. Objective: Vital Signs: Vital Signs Date Time Temp Pulse Resp B/P (MAP) Pulse Ox O2 Delivery O2 Flow Rate FiO2 09/26/21 08:00 Room Air 09/26/21 07:00 98.0 74 18 143/54 (83) 96 98.0 Labs: Laboratory Tests Test 09/25/21 11:20 09/26/21 07:20 Body Fluid Source Ascites Body Fluid Color Yellow Body Fluid Clarity Hazy Body Fluid Nucleated Cells 382 /cmm Body Fluid Mononuclear WBCs (%) 44 % Body Fluid Polymorphonuclear Cells 43 % Body Fluid Total RBCs Counted 1170 /cmm Body Fluid Other Cells (%) 13 % Sodium Level 144 mmol/L Potassium Level 4.8 mmol/L Chloride Level 114 mmol/L Carbon Dioxide Level 18 mmol/L Anion Gap 12 Blood Urea Nitrogen 13 mg/dL Creatinine 2.1 mg/dL Estimated GFR (Cockcroft-Gault) 22.6 BUN/Creatinine Ratio 6 Glucose Level 101 mg/dL Calcium Level 7.8 mg/dL Total Bilirubin 0.3 mg/dL Aspartate Amino Transf (AST/SGOT) 13 U/L Alanine Aminotransferase (ALT/SGPT) 10 U/L Alkaline Phosphatase 61 U/L Total Protein 5.2 g/dL Albumin 2.7 g/dL Albumin/Globulin Ratio 1.1 GRAM STAIN-AER JENNIFER PENDING CULTURE ANAEROBIC/AEROBIC Preliminary NO GROWTH ON 09/26/21 at 0840 FECAL WBC,GRAM STAIN Final WBCS FEW Imaging: Abd US 09/25 Impression: 1. Nodular hepatic contour with moderate ascites and splenomegaly consistent with cirrhosis and portal hypertension. The portal vein remains patent. Paracentesis 09/25 3.4L PE: GEN: NAD LUNGS: CTAB HEART: RRR ABD: softer, less distended NEURO/PSYCH: A & O 3 A/P: Abdominal distention, early satiety - better UTI Cirrhosis, anasarca, ascites s/p paracentesis - echo pending Chronic diarrhea - better, stool studies pending S/p suspected ileojejunal bypass -- Await pending data. Justicifation of Admission Dx: Justifications for Admission: Justification of Admission Dx: Yes MARGE CAMACHO Sep 26, 2021 10:27
[2021-09-26 11:00] VITALS: BP 144/52
--- NOTE | 2021-09-26 13:00 | PDOC ---
[employer] PROGRESS NOTE Date of Service DOS: DATE: 09/26/21 TIME: 12:57 Chief Complaint Chief Complaint Assessment/Plan DHAVAL due to vasomotor nephropathy Intractable abdominal pain - IV fentanyl prn Diarrhea - no vomiting. This may be more of an osmotic diarrhea and malabsorption rather than secretory diarrhea given elevated chloride level and history. Stool studies ordered Abnormal abdominal CT -liver nodularities concerning for chronic liver disease may be early cirrhosis with some skin ascites. Will consult GI for further recommendations. Unintentional weight loss -seems more due to anasarca, given findings on labs this could be from renal loss or from liver disease will trend labs. Nephrolithiasis - non-obstructive. will monitor Hypokalemia - likely GI losses, will replace Hypomagnesemia - likely GI losses, replace Abnormal UA - with some mild dysuria, treating as UTI empirically, will f/u urine cultures Abnormal renal function - she may have CKD III per last 5 years. 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 She does note she has chronic diarrhea but over the last week has become much worse no she can control it and notes cramping of her belly for the past week as well. She does note historically she has had a gastrointestinal bypass surgery previously. She also notes her stools have been oily and floating. She has had such fecal urgency that she has had some accidents and chairs in bed at home. She did become a little weak and notes that she has lost around 40 pounds likely over the last year. She has not seen a doctor in the last 2 years. 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 Labs with WBC 6.2, Hb 12, platelets 155, NA 144, K3.4, BUN 12, CR 2.1, glucose 119, calcium 7.8, magnesium 1.6, bilirubin 0.6, AST 13, ALT 17, alk phos 80, albumin 3.1, lipase 103, NT proBNP 862, HS troponin 9, lactic acid 1.9, rapid COVID-19 rapid influenza both negative, urinalysis with WBCs large leuk esterase small blood. CT abdomen pelvis reveals small right pleural effusion and liver with multiple hypodensities and nodularity. Left renal atrophy and left renal pelvic nonobstructing calculus noted, subcutaneous anasarca. 09/25/2021 No acute events overnight. Patient seen examined bedside. Plan for paracentesis and echocardiogram. GI evaluation actively in progress. AF and VSS. 09/25/2021 No acute events overnight. Patient seen examined bedside. Patient feels improved without any diarrhea. 3.4 L was removed by paracentesis. Currently pending TTE. E. coli growing out of urine cultures. We will continue with IV Rocephin. Patient's chart, labs, images were reviewed and discussed with RN Vitals/I&O Vitals/I&O: Vital Signs Date Time Temp Pulse Resp B/P (MAP) Pulse Ox O2 Delivery O2 Flow Rate FiO2 09/26/21 11:00 98.1 58 18 144/52 (82) 100 98.1 09/26/21 08:00 Room Air I & O 09/25/21 09/25/21 09/26/21 15:00 23:00 07:00 Intake Total 360 ml 360 ml 240 ml Output Total 3400 ml Balance -3040 ml 360 ml 240 ml Physical Exam General: Alert, Oriented X3, Cooperative, mild distress Lungs: Clear Abdomen: Normal bowel sounds, Soft, No hepatosplenomegaly, No masses, Other (diffuse mild tenderness, positive fluid wave) Extremities: No clubbing, No cyanosis, Normal pulses, No tenderness/swelling, Other (R>L edema) Skin: No rashes, No breakdown, No significant lesion Labs Labs: Laboratory Tests Test 09/26/21 07:20 Sodium Level 144 mmol/L (136-145) Potassium Level 4.8 mmol/L (3.5-5.1) Chloride Level 114 mmol/L (98-107) Carbon Dioxide Level 18 mmol/L (21-32) Anion Gap 12 (6-14) Blood Urea Nitrogen 13 mg/dL (7-20) Creatinine 2.1 mg/dL (0.6-1.0) Estimated GFR (Cockcroft-Gault) 22.6 BUN/Creatinine Ratio 6 (6-20) Glucose Level 101 mg/dL (70-99) Calcium Level 7.8 mg/dL (8.5-10.1) Total Bilirubin 0.3 mg/dL (0.2-1.0) Aspartate Amino Transf (AST/SGOT) 13 U/L (15-37) Alanine Aminotransferase (ALT/SGPT) 10 U/L (14-59) Alkaline Phosphatase 61 U/L (46-116) Total Protein 5.2 g/dL (6.4-8.2) Albumin 2.7 g/dL (3.4-5.0) Albumin/Globulin Ratio 1.1 (1.0-1.7) Assessment and Plan Assessmemt and Plan Problems Medical Problems: (1) Ascites Status: Acute (2) Diarrhea Status: Acute (3) UTI (urinary tract infection) Status: Acute Comment Review of Relevant I have reviewed the following items rehan (where applicable) has been applied. Justifications for Admission Other Justification DARIUSZ SPIVEY MD Sep 26, 2021 13:00
[2021-09-26 15:00] VITALS: BP 127/59
[2021-09-26 19:00] VITALS: BP 147/55
[2021-09-26 23:43] VITALS: BP 111/59
[2021-09-27 03:51] VITALS: BP 139/59
[2021-09-27] MEDS: HEPARIN for SUB-Q USE 5,000 UNIT/ML VIAL. SQ SCH ×3 (05:59→22:00)
[2021-09-27 07:00] VITALS: BP 136/57
[2021-09-27] MEDS: PANTOPRAZOLE 40 MG TABLET.DR. PO SCH (08:33)
[2021-09-27 11:00] VITALS: BP 139/103
--- NOTE | 2021-09-27 12:49 | PDOC ---
Date of Service: DATE: 09/27/21 TIME: 12:43 Subjective: Subjective: Watery stools came back - urgent but able to make it to toilet. Son on phone w/ cirrhosis questions - wants to know the level. She's asking if she's going home today or tomorrow - her son is running out of time today. Objective: Objective: Echo ordered 09/25, rescheduled for today. Vital Signs: Vital Signs Date Time Temp Pulse Resp B/P (MAP) Pulse Ox O2 Delivery O2 Flow Rate FiO2 09/27/21 08:00 Room Air 09/27/21 07:00 97.4 73 18 136/57 (83) 98 97.4 Labs: CULTURE URINE Final 70,000 CFU/ML GRAM NEGATIVE RODS on 09/26/21 at 0831. 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 Justicifation of Admission Dx: Justifications for Admission: Justification of Admission Dx: Yes MARGE CAMACHO Sep 27, 2021 12:49
[2021-09-27] MEDS: cefTRIAXone IV Push 1 GM VIAL. IVP SCH (14:00)
[2021-09-27 15:00] VITALS: BP 147/65
--- NOTE | 2021-09-27 15:14 | PDOC ---
[employer] PROGRESS NOTE Date of Service DOS: DATE: 09/27/21 TIME: 15:13 Chief Complaint Chief Complaint Assessment/Plan DHAVAL due to vasomotor nephropathy Intractable abdominal pain - IV fentanyl prn Diarrhea - no vomiting. This may be more of an osmotic diarrhea and malabsorption rather than secretory diarrhea given elevated chloride level and history. Stool studies ordered Abnormal abdominal CT -liver nodularities concerning for chronic liver disease may be early cirrhosis with some skin ascites. Will consult GI for further recommendations. Unintentional weight loss -seems more due to anasarca, given findings on labs this could be from renal loss or from liver disease will trend labs. Nephrolithiasis - non-obstructive. will monitor Hypokalemia - likely GI losses, will replace Hypomagnesemia - likely GI losses, replace Abnormal UA - with some mild dysuria, treating as UTI empirically, will f/u urine cultures Abnormal renal function - she may have CKD III per last 5 years. 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 She does note she has chronic diarrhea but over the last week has become much worse no she can control it and notes cramping of her belly for the past week as well. She does note historically she has had a gastrointestinal bypass surgery previously. She also notes her stools have been oily and floating. She has had such fecal urgency that she has had some accidents and chairs in bed at home. She did become a little weak and notes that she has lost around 40 pounds likely over the last year. She has not seen a doctor in the last 2 years. She does not think she is ever had a screening colonoscopy or seen a appeals writer before. Labs with WBC 6.2, Hb 12, platelets 155, NA 144, K3.4, BUN 12, CR 2.1, glucose 119, calcium 7.8, magnesium 1.6, bilirubin 0.6, AST 13, ALT 17, alk phos 80, albumin 3.1, lipase 103, NT proBNP 862, HS troponin 9, lactic acid 1.9, rapid COVID-19 rapid influenza both negative, urinalysis with WBCs large leuk esterase small blood. CT abdomen pelvis reveals small right pleural effusion and liver with multiple hypodensities and nodularity. Left renal atrophy and left renal pelvic nonobstructing calculus noted, subcutaneous anasarca. 09/25/2021 No acute events overnight. Patient seen examined bedside. Plan for paracentesis and echocardiogram. GI evaluation actively in progress. AF and VSS. 09/26/2021 No acute events overnight. Patient seen examined bedside. Patient feels improved without any diarrhea. 3.4 L was removed by paracentesis. Currently pending TTE. E. coli growing out of urine cultures. We will continue with IV Rocephin. Patient's chart, labs, images were reviewed and discussed with RN 09/27/2021 No acute events overnight. Patient still having some diarrhea. Echo completed today waiting for final results. Plan for discharge in the morning if diarrhea improves. Okay for some Imodium at time of discharge. All stool studies are negative. Patient's chart, labs, images were reviewed and discussed with RN Vitals/I&O Vitals/I&O: Vital Signs Date Time Temp Pulse Resp B/P (MAP) Pulse Ox O2 Delivery O2 Flow Rate FiO2 09/27/21 11:00 98.0 85 18 139/103 (115) 98 98.0 09/27/21 08:00 Room Air I & O 09/26/21 09/26/21 09/27/21 15:00 23:00 07:00 Intake Total 100 ml Balance 100 ml Physical Exam General: Alert, Oriented X3, Cooperative, mild distress Lungs: Clear Abdomen: Normal bowel sounds, Soft, No hepatosplenomegaly, No masses, Other (diffuse mild tenderness, positive fluid wave) Extremities: No clubbing, No cyanosis, Normal pulses, No tenderness/swelling, Other (R>L edema) Skin: No rashes, No breakdown, No significant lesion Assessment and Plan Assessmemt and Plan Problems Medical Problems: (1) Ascites Status: Acute (2) Diarrhea Status: Acute (3) UTI (urinary tract infection) Status: Acute Comment Review of Relevant I have reviewed the following items rehan (where applicable) has been applied. Justifications for Admission Other Justification DARIUSZ SPIVEY MD Sep 27, 2021 15:14
--- NOTE | 2021-09-27 15:49 | CARD ---
MR#: [id number] Date of Study: 09/27/2021 Ordering Physician: MARGE CAMACHO, Referring Physician: MARGE CAMACHO, Tech: Mindy Wynne [facility] APPROVED REPORT EXAM: Two-dimensional and M-mode echocardiogram with Doppler and color Doppler. Other Information Quality : AverageHR: 92bpm Rhythm : NSR INDICATION Dyspnea RISK FACTORS Hypertension Obesity 2D DIMENSIONS RVDd2.8 (2.9-3.5cm)Left Atrium(2D)3.7 (1.6-4.0cm) IVSd1.2 (0.7-1.1cm)Aortic Root(2D)3.0 (2.0-3.7cm) LVDd3.9 (3.9-5.9cm)LVOT Diameter1.7 (1.8-2.4cm) PWd1.3 (0.7-1.1cm)LVDs2.2 (2.5-4.0cm) FS (%) 43.0 %SV49.8 ml Aortic Valve AoV Peak Justice.186.6cm/sAoV VTI28.2cm AO Peak GR.13.9mmHgLVOT Peak Justice.113.7cm/s AO Mean GR.6mmHgAVA (VMAX)1.43cm2 Mitral Valve MV E Emryczcp87.0cm/s Pulmonary Valve PV Peak Wjrelzge140.7cm/s LEFT VENTRICLE The left ventricle is normal size. There is mild concentric left ventricular hypertrophy. The left ve ntricular systolic function is normal and the ejection fraction is within normal range. LV ejection f raction of 50-55%. There is normal LV segmental wall motion. Transmitral Doppler flow pattern is Grad e I-abnormal relaxation pattern. RIGHT VENTRICLE The right ventricle is normal size. The right ventricle is borderline hypertrophied. The right ventri cular systolic function is normal. ATRIA The left atrium size is normal. The right atrium size is normal. The interatrial septum is intact wit h no evidence for an atrial septal defect or patent foramen ovale as noted on 2-D or Doppler imaging. AORTIC VALVE The aortic valve is normal in structure and function. Doppler and Color Flow revealed no significant aortic regurgitation. There is no significant aortic valvular stenosis. MITRAL VALVE The mitral valve is normal in structure and function. There is no evidence of mitral valve prolapse. There is no mitral valve stenosis. Doppler and Color-flow revealed trace to mild mitral regurgitation . TRICUSPID VALVE The tricuspid valve is normal in structure and function. Doppler and Color Flow revealed trace tricus pid valve regurgitation. There is no tricuspid valve stenosis. PULMONIC VALVE The pulmonary valve is normal in structure and function. Doppler and Color Flow revealed mild pulmoni c valvular regurgitation. GREAT VESSELS The aortic root is normal in size. The ascending aorta is normal in size. The IVC is normal in size a nd collapses >50% with inspiration. PERICARDIAL EFFUSION There is no evidence of significant pericardial effusion. Critical Notification Critical Value: No <Conclusion> The left ventricle is normal size. The left ventricular systolic function is normal and the ejection fraction is within normal range. LV ejection fraction of 50-55%. There is mild concentric left ventricular hypertrophy. Doppler and Color Flow revealed no significant aortic regurgitation. There is no significant aortic valvular stenosis. Doppler and Color-flow revealed trace to mild mitral regurgitation. Doppler and Color Flow revealed trace tricuspid valve regurgitation. Signed by : Dylon Wilkins MD Electronically Approved : 09/27/2021 15:49:34
--- NOTE | 2021-09-27 16:07 | PATHOLOGY ---
Note [facility] Accession Number: [id number] TESTS RESULT FLAG UNITS REF RANGE LAB Clinician Provided Cytology Information No. of containers..01 Other (Miscellaneous) Source: ASCITES DIAGNOSIS: 02 ASCITES NEGATIVE FOR MALIGNANT CELLS. FOCALLY REACTIVE MESOTHELIAL CELLS PRESENT. THIS EVALUATION INCLUDES EXAMINATION OF A CELL BLOCK. Signed out by: 02 Ramon Vasques MD, Pathologist NPI- [id number] Performed by: Kaleb Gamez, Engraved Roller Inspector ([facility]) Gross description: 01 35ML, YELLOW, HAZY /LCS 09/26/2021 1736 Local FLAG LEGEND: L-Low Normal,H-High Normal,LL-Alert Low,HH-Alert High <-Panic Low,>-Panic High,A-Abnormal,AA-Critical Abnormal Performed at: [address] [address] Donny Villasenor MD, [address] [facility] [address] [place] [address] Ramon Vasques MD, Specimen Comment: A courtesy copy of this report has been sent to [phone], [phone] Specimen Comment: [id number] Specimen Comment: Report sent to / DR JONES Performed at: [address], [place] [id number] MD Donny Villasenor MD Phone: [phone]
[2021-09-27 19:00] VITALS: BP 116/95
[2021-09-27 23:00] VITALS: BP 146/51
[2021-09-28 03:00] VITALS: BP 137/59
[2021-09-28] MEDS: PANTOPRAZOLE 40 MG TABLET.DR. PO SCH (06:17)
[2021-09-28] MEDS: HEPARIN for SUB-Q USE 5,000 UNIT/ML VIAL. SQ SCH (06:21)
[2021-09-28 07:00] VITALS: BP 152/60
[2021-09-28] MEDS ORDERED: LOPE-101 PO (10:13)
[2021-09-28] MEDS ORDERED: CEFD300C PO (10:13)
--- NOTE | 2021-09-28 10:14 | DISCH ---
DISCHARGE INSTRUCTIONS Condition on Discharge Condition on Discharge: Stable Activity After Discharge Activity Instructions for Disc: Activity as tolerated Exercise Instruction after Dis: Walk 30 min, 5 x per week Driving Instructions after Dis: Do not drive today Weight Bearing Status after Di: No restrictions Diet after Discharge Diet after Discharge: Cardiac Liquid Texture: Thin Liquid Follow-Up Follow up with: PCP within 2 weeks of discharge Follow Up With: Gastroenterology as needed or as scheduled DARIUSZ SPIVEY MD Sep 28, 2021 10:14
[2021-09-28 11:00] VITALS: BP 171/73
[2021-09-28] MEDS ORDERED: FURO-68 PO (12:17)
[2021-09-28] MEDS ORDERED: LACTOBACILLUS RHAMNOSUS GG 1 CAPSULE. PO SCH (21:00)
== END 2021-09-28 14:55 | disposition home or self-care (01) | DRG 432 ==
LOC: ER 15:09 → 5 SOUTH 17:35 → 5 NORTH 09-26 05:20
PROVIDERS: ADMIT Internal Medicine; ATTEND Internal Medicine
PROC: 0W9G3ZZ Drainage of Peritoneal Cavity, Percutaneous Approach (ICD-10-PCS; principal; 2021-09-25)
DX: K74.60 Unspecified cirrhosis of liver (principal); N17.0 Acute kidney failure with tubular necrosis; E43 Unspecified severe protein-calorie malnutrition; K76.6 Portal hypertension; N20.2 Calculus of kidney with calculus of ureter; N39.0 Urinary tract infection, site not specified; R18.8 Other ascites; I12.9 Hypertensive chronic kidney disease with stage 1 through stage 4 chronic kidney disease, or unspecified chronic kidney disease; E83.42 Hypomagnesemia; E87.6 Hypokalemia; K52.9 Noninfective gastroenteritis and colitis, unspecified; N18.9 Chronic kidney disease, unspecified; Z87.442 Personal history of urinary calculi; Z90.49 Acquired absence of other specified parts of digestive tract; Z98.84 Bariatric surgery status; K21.9 Gastro-esophageal reflux disease without esophagitis; M19.90 Unspecified osteoarthritis, unspecified site; E66.9 Obesity, unspecified; Z88.8 Allergy status to other drugs, medicaments and biological substances; B96.20 Unspecified Escherichia coli [E. coli] as the cause of diseases classified elsewhere; Z68.30 Body mass index [BMI] 30.0-30.9, adult; N18.30 Chronic kidney disease, stage 3 unspecified
CPT/HCPCS: 36415; 49083; 74176; 76700; 80053; 81001; 82150; 82945; 83605; 83615; 83690; 83735; 83880; 84156; 84157; 84484; 85025; 85610; 85730; 87075; 87086; 87186; 87205; 87428; 87493; 87505; 89050; 93306; 96361; 96374; 96375; J0360; J0696; J1644; J2270; J2405; J3475; J3480; J3490; J7030; P9046; 99285-25; C8929; G0378